=== PATIENT | female | born 1980 | race Caucasian/White ===

== ENCOUNTER 2020-01-21 13:26 | Emergency (ER) | payer OTHER, SELFPAY ==
--- NOTE | 2020-01-21 | CT_ITS ---
EXAMINATION: CT HEAD WITHOUT CONTRAST CLINICAL INFORMATION: Dizziness COMPARISON: None TECHNIQUE: Contiguous axial imaging was performed from the skull base to vertex without intravenous administration of contrast. This CT examination was performed using dose optimization techniques as appropriate, variously including the following: *Automated exposure control *Adjustment of mA and/or kV according to patient size (this includes techniques or standardized protocols for targeted exams where dose is matched to indication/reason for exam; i.e. extremities or head) *Use of iterative reconstruction technique DLP: 887 mGy-cm FINDINGS: There is no evidence of acute intracranial hemorrhage or territorial infarction. No abnormal mass effect or midline shift is seen. Lamar to white matter differentiation is well preserved. No extra-axial fluid collections are identified. The ventricles are normal in size. There is no abnormal attenuation within the brain parenchyma. The osseous structures and soft tissues are normal. The mastoid air cells and visualized portions of the paranasal sinuses are well aerated. IMPRESSION: Unremarkable exam.
[2020-01-21 13:32] VITALS: BP 131/83; PULSE 63; RESP 30; TEMP 36.7; O2SAT 96; BMI 52.4
--- NOTE | 2020-01-21 14:38 | ED_ITS ---
HPI - Dizziness General Chief Complaint: Dizziness Stated Complaint: dizziness,nausea Time Seen by Provider: 01/21/20 14:32 Related Data Previous Rx's Medication Instructions Recorded meclizine 25 mg PO DAILY PRN #30 tab 01/21/20 Allergies Allergy/AdvReac Type Severity Reaction Status Date / Time latex [LATEX] Allergy Mild HIVES Unverified 01/04/20 16:36 Latex Allergy Unknown Uncoded 08/03/19 00:00 Review of Systems Review of Systems: Yes all other systems are reviewed and are negative Constitutional: Constitutional: Reports no additional constitutional complaints Eyes: Eyes: Reports no additional eye complaints ENT: Reports system reviewed and no additional complaints, except as documented, Reports Normal hearing present and Reports dizziness Cardiovascular: Cardiovascular: Reports no additional cardiovascular complaints Respiratory: Respiratory: Reports no additional respiratory complaints Gastrointestinal: Gastrointestinal: Reports no additional gastrointestinal complaints Musculoskeletal: Musculoskeletal: Reports no additional musculoskeletal complaints Neurologic: Reports system reviewed and no additional complaints, except as documented, Reports Normal hearing present, Reports Abnormal speech present and Reports dizziness Psychiatric: Psychiatric: Reports no additional psychiatric complaints [facility] Past Medical History Medical History (Updated 01/21/20 @ 16:13 by Sandy Da Silva MD) Bipolar disorder Dizziness Vertigo Surgical History (Updated 01/21/20 @ 13:36 by Yogesh Saenz) History of hysterectomy Social History Social History Smoked in Last 30 Days: No Use of substances other than those prescribed or required for medical reasons: No Advance Directives: No Advance Directives Information Provided: No Physical Exam Vital Signs and I&O and Narrative: Vital Signs and I&O: Vital Signs Temp 98.5 F 01/21/20 15:48 Pulse 60 01/21/20 15:48 Resp 14 01/21/20 15:48 BP 126/78 01/21/20 15:48 Pulse Ox 96 01/21/20 13:32 Intake & Output 01/20/20 01/21/20 01/21/20 18:59 06:59 18:59 Weight 147.418 kg Body Mass Index 52.4 Const: General: healthy appearing and comfortable Orientation/consciousness: oriented to person, oriented to place and oriented to time HENMT: Ears: hearing grossly normal bilaterally, external ears normal and TM's normal bilaterally General nose exam: Normal external nose present Mouth: Normal oral and palatal mucosa present Teeth and gingiva: dentition normal Eyes: General: appearance normal, both eyes and all related structures Alignment and Position: alignment normal and position normal Periorbital: periorbital findings normal Eyelids: Yes eyelids normal Conjunctivae: conjunctivae normal Sclerae: sclerae normal Pupils: Equal, round and reactive pupils present EOM: No Nystagmus present Neck: Neck: Yes normal visual inspection and Yes full ROM Chest: Chest palpation & inspection: normal inspection of the chest Resp: Effort & Inspection: normal respiratory effort Cardio: Jugular venous distension: no JVD GI: Inspection: Yes normal to inspection : General: Yes Bimanual renal exam normal bilaterally Skin: General skin exam: no rashes or lesions noted Neuro: General: oriented to person, oriented to place, oriented to time, gait normal, Normal light touch and pain sensation, no focal motor deficits and CN's II-XI intact bilaterally Cranial nerves: Yes CN's II-XII intact bilaterally, Yes Facial sensation intact/muscles of mastication intact, Yes Equal, round and reactive pupils present, No Nystagmus not present, Yes Normal hearing present and No Nystagmus present Cognition (Neuro): normal cognition Speech: Abnormal speech present Gait exam (Neuro): Normal gait present Motor exam (neuro): 5/5 motor strength present throughout Sensory Exam: Normal double simultaneous stimulation for sensation Extrem: General: Yes normal to inspection Course Reevaluation(s) Reevaluation #1: 39-year-old female presented with dizziness (vertigo ), patient has a previous history of Down a similar symptoms. Patient has improved with meclizine / Ativan / Zofran. Patient has unremarkable neurological exam in particular cerebellar exam is unremarkable, patient had a CT of the of the head which is unremarkable. The patient feels better, patient ambulated in the emergency department with a stable gait will discharge with meclizine. Time: 16:11 MDM - Dizziness Differential Diagnosis Differential diagnosis: Likely benign paroxysmal positional vertigo, vertebral basilar insufficiency, cerebrovascular accident and transient cerebral ischemia Medical Records Attestation: I reviewed the patient's medical records. Lab Data Result diagrams: 01/21/20 14:58 01/21/20 14:58 Labs: Lab Results 01/21/20 01/21/20 Range/Units 14:58 14:58 WBC 8.7 (4.8-10.8) X10*3/uL RBC 5.02 (4.20-5.50) X10*6/uL Hgb 12.8 (12.0-16.0) g/dl Hct 41.1 (37-47) % MCV 81.9 (80-98) fL MCH 25.5 L (27.0-33.0) pg MCHC 31.1 (31.0-35.0) g/dl RDW 15.3 (11.0-16.0) % Plt Count 438 H (160-400) X10*3/uL MPV 9.5 (9.4-12.3) fL Absolute Nucleated RBC 0.000 (0.0-0.012) X10*3/uL Nucleated RBC % (auto) 0.0 (0.0-0.2) /100WBC Sodium 139 (135-145) mmol/L Potassium 4.4 (3.3-5.1) mmol/l Chloride 105 (96-108) mmol/L Carbon Dioxide 25 (22-29) mmol/L Anion Gap 13 (12-20) BUN 11 (9-16) mg/dL Creatinine 0.82 (0.5-1.4) mg/dL Estim Creat Clear Calc 134.7 Estimated GFR > 60 Random Glucose 88 (60-115) mg/dL Calcium 9.5 (8.4-10.2) mg/dL Imaging Data CT scan - head: Radiologist's impression: here is no evidence of acute intracranial hemorrhage or territorial infarction. No abnormal mass effect or midline shift is seen. Lamar to white matter differentiation is well preserved. No extra-axial fluid collections are identified. The ventricles are normal in size. There is no abnormal attenuation within the brain parenchyma. The osseous structures and soft tissues are normal. The mastoid air cells and visualized portions of the paranasal sinuses are well aerated. Discharge Plan Discharge Clinical Impression: Benign paroxysmal positional vertigo Patient Disposition: Home, Self-Care Instructions: Benign Paroxysmal Positional Vertigo (ED) Prescriptions: New meclizine 25 mg tablet 25 mg PO DAILY PRN (Reason: dizziness) Qty: 30 RF: 0 Referrals: Yogesh Saenz [Emergency Nurse] - 2 days
[2020-01-21] MEDS: ondansetron HCL 4 MG/2 ML VIAL IVPUSH (14:59)
[2020-01-21] MEDS: 0.9 % Sodium Chloride 1,000 ML 999 ML IVCONT (14:59)
[2020-01-21] MEDS: LORazepam 1 MG TABLET PO (14:59)
[2020-01-21] MEDS: Meclizine HCl 25 MG TABLET PO (14:59)
[2020-01-21 15:06] LABS: Hematocrit 41.1 % (37-47); Hemoglobin 12.8 g/dl (12.0-16.0); Mean Corpuscular HGB Conc 31.1 g/dl (31.0-35.0); Mean Corpuscular Hemoglobin 25.5 pg (27.0-33.0); Mean Corpuscular Volume 81.9 fL (80-98); Mean Platelet Volume 9.5 fL (9.4-12.3); Platelet Count 438 X10*3/uL (160-400); Red Blood Count 5.02 X10*6/uL (4.20-5.50); Red Cell Distribution Width 15.3 % (11.0-16.0); White Blood Count 8.7 X10*3/uL (4.8-10.8)
[2020-01-21 15:41] LABS: Anion Gap 13 (12-20); Blood Urea Nitrogen 11 mg/dL (9-16); Calcium 9.5 mg/dL (8.4-10.2); Carbon Dioxide 25 mmol/L (22-29); Chloride 105 mmol/L (96-108); Creatinine Clr Calc Pharmacy 134.7; Estimated Glomerular Filt Rate > 60; Glucose Random 88 mg/dL (60-115); Potassium 4.4 mmol/l (3.3-5.1); Sodium 139 mmol/L (135-145)
[2020-01-21 15:48] VITALS: BP 126/78; PULSE 60; RESP 14; TEMP 36.9
[2020-01-21 16:15] VITALS: BP 121/63; PULSE 63; RESP 20; TEMP 36.8; O2SAT 99
--- NOTE | 2020-01-21 16:18 | PC.NURSE ---
PT AMBULATED TO BR WITHOUT DIFFICULTY
== END 2020-01-21 16:38 | disposition home or self-care (01) ==
PROVIDERS: Emergency Provider Emergency Medicine; PCP Internal Medicine
DX: H81.10 Benign paroxysmal vertigo, unspecified ear (principal)
CPT/HCPCS: 36415; 70450; 80048; 85027; 96361; 96374; 99284; J2405

== ENCOUNTER 2020-01-23 10:36 | Emergency (ER) | payer OTHER, SELFPAY ==
--- NOTE | 2020-01-23 10:41 | ED_ITS ---
HPI - Psych General Chief Complaint: Psychiatric Symptoms Stated Complaint: AUDITORY HALLUCINATIONS,VOICES WILL KILL HER Time Seen by Provider: 01/23/20 10:41 Source: patient and EMS Mode of arrival: EMS Limitations: other (very anxious, tearful) History of Present Illness complaint: anxiety and hallucinations Onset (ago): unknown Duration: constant History of same: Yes Relieving factors: none Exacerbating factors: none Context: not taking psychiatric medications Associated psychiatric symptoms: depression, racing thoughts and auditory hallucinations Associated symptoms: denies other symptoms Treatments prior to arrival: none Related Data Previous Rx's Medication Instructions Recorded meclizine 25 mg PO DAILY PRN #30 tab 01/21/20 Allergies Allergy/AdvReac Type Severity Reaction Status Date / Time latex [LATEX] Allergy Mild HIVES Unverified 01/04/20 16:36 Latex Allergy Unknown Uncoded 08/03/19 00:00 Review of Systems Review of Systems: Constitutional : No Fever, No Chills ENT/Mouth : No Ear Pain, No Nasal Congestion, No sore throat Eyes: No Eye Pain, No Swelling, No Redness Cardiovascular : No Chest Pain, No SOB Respiratory : No Cough, No Sputum, No Dyspnea Gastrointestinal : No Nausea, No Vomiting, No Diarrhea, No Hematochezia, No Melena Genitourinary : No Dysuria, No Urinary Frequency, No Hematuria Musculoskeletal : No Myalgias Skin : No Skin Lesions, No rash Neuro : No Weakness, No Numbness, No Paresthesias, No Dizziness, No Headache Psych : positive Anxiety, positive Depression, positive hallucinations, no SI/HI Heme/Lymph: No Lymphadenopathy Endocrine : No Polyuria, No Polydipsia All other systems reviewed and are negative [facility] Past Medical History Medical History (Updated 01/23/20 @ 15:48 by Delaney Shi DO) Bipolar disorder Dizziness Vertigo Surgical History (Updated 01/23/20 @ 10:54 by Delaney Shi DO) History of appendectomy History of hysterectomy Hx of cholecystectomy Social History Social History (Updated 01/23/20 @ 10:54 by Delaney Shi DO) Alcohol intake: never Smoking Status: Never smoker Use of substances other than those prescribed or required for medical reasons: No Advance Directives: No Advance Directives Information Provided: No Physical Exam Vital Signs and I&O and Narrative: Vital Signs and I&O: Vital Signs Temp 97 F 01/23/20 15:43 Pulse 94 01/23/20 15:43 Resp 16 01/23/20 15:43 BP 125/80 01/23/20 15:43 Pulse Ox 95 01/23/20 15:43 Intake & Output 01/22/20 01/23/20 01/23/20 18:59 06:59 18:59 Weight 325 kg Body Mass Index 115.6 Appearance: Alert. Oriented X3. crying, mild distress Eyes: Pupils equal, round and reactive to light. ENT: Pharynx normal. Neck: Normal inspection. Neck supple. CVS: Normal heart rate and rhythm. Pulses normal. Respiratory: No respiratory distress. Breath sounds normal. Abdomen: Soft and nontender. Skin: Skin warm and dry. Normal skin color. Normal skin turgor. Extremities: No lower extremity edema. No lower extremity edema. Neuro: Oriented X 3. No motor deficit. No sensory deficit. Psych: + auditory hallucinations, no HI Course Course Course Narrative: signed out to Dr. Neal pending [facility] MDM - Psych MDM Narrative Medical decision making narrative: patient with hx of PTSD and bipolar no medications x 2 months very anxious states she is hearing voices will need labs, agrees to PO PEPE reyes consult Restraints Face to Face Assessment: Face to Face Assessment: Current Situation: After assessment of the patient, a review of the pertinent medical record and a discussion with nursing staff, I feel the patient requires a restrain intervention. Reaction To: [] Medical Condition: [] Behavioral State: [] Continued Need: [] Lab Data Result diagrams: 01/23/20 11:36 01/23/20 11:36 Labs: Lab Results 01/23/20 01/23/20 01/23/20 Range/Units 11:17 11:36 11:36 WBC 10.0 (4.8-10.8) X10*3/uL RBC 5.29 (4.20-5.50) X10*6/uL Hgb 13.4 (12.0-16.0) g/dl Hct 43.1 (37-47) % MCV 81.5 (80-98) fL MCH 25.3 L (27.0-33.0) pg MCHC 31.1 (31.0-35.0) g/dl RDW 15.4 (11.0-16.0) % Plt Count 479 H (160-400) X10*3/uL MPV 9.5 (9.4-12.3) fL Immature Gran % (Auto) 0.2 (0.0-0.4) % Neut % (Auto) 81.9 H (45-73) % Lymph % (Auto) 13.1 L (20-40) % [place] % (Auto) 4.4 (2-11) % Eos % (Auto) 0.1 (0-4) % Baso % (Auto) 0.3 (0-2) % Neut # (Auto) 8.2 (2.0-8.3) X10*3/uL Lymph # (Auto) 1.3 (1.2-4.9) X10*3/uL [place] # (Auto) 0.4 (0.1-1.2) X10*3/uL Eos # (Auto) 0.0 (0.0-0.4) X10*3/uL Baso # (Auto) 0.0 (0.0-0.2) X10*3/uL Abs Immat Gran (auto) 0.02 (0.00-0.03) X10*3/uL Absolute Nucleated RBC 0.000 (0.0-0.012) X10*3/uL Nucleated RBC % (auto) 0.0 (0.0-0.2) /100WBC Sodium 137 (135-145) mmol/L Potassium 4.8 (3.3-5.1) mmol/l Chloride 102 (96-108) mmol/L Carbon Dioxide 27 (22-29) mmol/L Anion Gap 13 (12-20) BUN 9 (9-16) mg/dL Creatinine 0.89 (0.5-1.4) mg/dL Estim Creat Clear Calc 217.4 Estimated GFR > 60 Random Glucose 119 H D (60-115) mg/dL Calcium 10.0 (8.4-10.2) mg/dL Total Bilirubin 0.5 (0.0-1.0) mg/dL Direct Bilirubin 0.2 (0.0-0.5) mg/dL AST 14 (5-31) U/L ALT 23 (0-31) U/L Alkaline Phosphatase 101 (39-117) U/L Total Protein 7.7 (6.5-8.0) g/dL Albumin 4.6 (3.5-5.0) g/dL Urine Opiates Screen Not Detected (Not Detect) Ur Barbiturates Screen Not Detected (Not Detect) Ur Phencyclidine Scrn Not Detected (Not Detect) Ur Amphetamines Screen Not Detected (Not Detect) U Benzodiazepines Scrn Not Detected (Not Detect) Urine Cocaine Screen Not Detected (Not Detect) U Marijuana (THC) Screen Not Detected (Not Detect) Ethyl Alcohol mg/dL 01/23/20 Range/Units 11:36 WBC (4.8-10.8) X10*3/uL RBC (4.20-5.50) X10*6/uL Hgb (12.0-16.0) g/dl Hct (37-47) % MCV (80-98) fL MCH (27.0-33.0) pg MCHC (31.0-35.0) g/dl RDW (11.0-16.0) % Plt Count (160-400) X10*3/uL MPV (9.4-12.3) fL Immature Gran % (Auto) (0.0-0.4) % Neut % (Auto) (45-73) % Lymph % (Auto) (20-40) % [place] % (Auto) (2-11) % Eos % (Auto) (0-4) % Baso % (Auto) (0-2) % Neut # (Auto) (2.0-8.3) X10*3/uL Lymph # (Auto) (1.2-4.9) X10*3/uL [place] # (Auto) (0.1-1.2) X10*3/uL Eos # (Auto) (0.0-0.4) X10*3/uL Baso # (Auto) (0.0-0.2) X10*3/uL Abs Immat Gran (auto) (0.00-0.03) X10*3/uL Absolute Nucleated RBC (0.0-0.012) X10*3/uL Nucleated RBC % (auto) (0.0-0.2) /100WBC Sodium (135-145) mmol/L Potassium (3.3-5.1) mmol/l Chloride (96-108) mmol/L Carbon Dioxide (22-29) mmol/L Anion Gap (12-20) BUN (9-16) mg/dL Creatinine (0.5-1.4) mg/dL Estim Creat Clear Calc Estimated GFR Random Glucose (60-115) mg/dL Calcium (8.4-10.2) mg/dL Total Bilirubin (0.0-1.0) mg/dL Direct Bilirubin (0.0-0.5) mg/dL AST (5-31) U/L ALT (0-31) U/L Alkaline Phosphatase (39-117) U/L Total Protein (6.5-8.0) g/dL Albumin (3.5-5.0) g/dL Urine Opiates Screen (Not Detect) Ur Barbiturates Screen (Not Detect) Ur Phencyclidine Scrn (Not Detect) Ur Amphetamines Screen (Not Detect) U Benzodiazepines Scrn (Not Detect) Urine Cocaine Screen (Not Detect) U Marijuana (THC) Screen (Not Detect) Ethyl Alcohol < 10 mg/dL Discharge Plan Discharge Clinical Impression: Chronic post-traumatic stress disorder Prescriptions: No Action meclizine 25 mg tablet 25 mg PO DAILY PRN (Reason: dizziness) Qty: 30 RF: 0
[2020-01-23 10:57] VITALS: BP 144/102; PULSE 89; RESP 20; TEMP 36.6; BMI 115.6
[2020-01-23] MEDS: LORazepam 1 MG TABLET 2 MG PO (11:11)
[2020-01-23 11:49] LABS: MANUAL DIFF FLAG NO
[2020-01-23 11:50] LABS: Basophils Percent Auto 0.3 % (0-2); Eosinophils Percent Auto 0.1 % (0-4); Hematocrit 43.1 % (37-47); Hemoglobin 13.4 g/dl (12.0-16.0); Imm Gran Abs Auto 0.02 X10*3/uL (0.00-0.03); Imm Gran Pct Auto 0.2 % (0.0-0.4); Lymphocytes Absolute Auto 1.3 X10*3/uL (1.2-4.9); Lymphocytes Percent Auto 13.1 % (20-40); Mean Corpuscular HGB Conc 31.1 g/dl (31.0-35.0); Mean Corpuscular Hemoglobin 25.3 pg (27.0-33.0); Mean Corpuscular Volume 81.5 fL (80-98); Mean Platelet Volume 9.5 fL (9.4-12.3); Monocytes Absolute Auto 0.4 X10*3/uL (0.1-1.2); Monocytes Percent Auto 4.4 % (2-11); Neutrophils Absolute Auto 8.2 X10*3/uL (2.0-8.3); Neutrophils Percent Auto 81.9 % (45-73); Platelet Count 479 X10*3/uL (160-400); Red Blood Count 5.29 X10*6/uL (4.20-5.50); Red Cell Distribution Width 15.4 % (11.0-16.0)
[2020-01-23 11:59] LABS: Amphetamine Screen Urine Not Detected (Not Detect); Barbiturates, Urine Not Detected (Not Detect); Benzodiazepines Screen Urine Not Detected (Not Detect); Cannabinoid Screen Urine Not Detected (Not Detect); Cocaine Screen Urine Not Detected (Not Detect); Opiate Screen Urine Not Detected (Not Detect); Phencyclidine Screen Urine Not Detected (Not Detect)
[2020-01-23 12:17] LABS: Ethanol < 10 mg/dL
[2020-01-23 12:21] LABS: Alanine Aminotransferase 23 U/L (0-31); Albumin Level 4.6 g/dL (3.5-5.0); Alkaline Phosphatase 101 U/L (39-117); Anion Gap 13 (12-20); Aspartate Amino Transferase 14 U/L (5-31); Bilirubin Direct 0.2 mg/dL (0.0-0.5); Bilirubin Total 0.5 mg/dL (0.0-1.0); Blood Urea Nitrogen 9 mg/dL (9-16); Carbon Dioxide 27 mmol/L (22-29); Chloride 102 mmol/L (96-108); Creatinine Clr Calc Pharmacy 217.4; Estimated Glomerular Filt Rate > 60; Glucose Random 119 mg/dL (60-115); Potassium 4.8 mmol/l (3.3-5.1); Sodium 137 mmol/L (135-145); Total Protein 7.7 g/dL (6.5-8.0)
[2020-01-23 15:43] VITALS: BP 125/80; PULSE 94; RESP 16; TEMP 36.1; O2SAT 95
--- NOTE | 2020-01-23 18:26 | PC.NURSE ---
PT GAVE PERMISSION TO GIVE UPDATES TO CAREN VASQUEZ (PT'S MOTHER) AND MARIO ROMANO (PT'S DAUGHTER) IF THEY CALL
--- NOTE | 2020-01-23 20:13 | PC.NURSE ---
LEON completed the assessment. Patient disposition is to discharge to [facility]. [facility]pite admission requires Covid negative test. Rapid covid test ordered/sample collected/sent to lab/pending result. Patient wandering in POD. Denied distress. Will continue to monitor.
[2020-01-23 21:12] LABS: SARS COV2 PCR INHOUSE NEGATIVE (Negative)
[2020-01-23 21:30] VITALS: BP 103/44; PULSE 73; RESP 16; O2SAT 98
--- NOTE | 2020-01-23 22:49 | PC.NURSE ---
Patient wants to go home not respite. [facility] made aware. Per N, pt has pcp, and o/p resource, and safe to go home. made aware. Pt will be discharged.
== END 2020-01-23 22:53 | disposition home or self-care (01) ==
PROVIDERS: Emergency Medicine; Physician Assistant; Emergency Provider Internal Medicine
DX: F43.12 Post-traumatic stress disorder, chronic (principal); F31.9 Bipolar disorder, unspecified; R44.0 Auditory hallucinations; Z79.899 Other long term (current) drug therapy
CPT/HCPCS: 36415; 80048; 80076; 80307; 80320; 85025; 87635; 99284

== ENCOUNTER 2020-03-12 03:22 | Emergency (ER) | payer OTHER, SELFPAY ==
[2020-03-12 03:39] VITALS: BP 132/78; PULSE 68; RESP 16; TEMP 37.1; O2SAT 97; BMI 50.3
[2020-03-12 04:07] VITALS: O2SAT 97
--- NOTE | 2020-03-12 04:21 | ED.URI ---
HPI - URI/Sore Throat General Chief Complaint: Upper Respiratory Symptoms Stated Complaint: Sore throat. Body aches. Sob Time Seen by Provider: 03/12/20 03:39 Source: patient Mode of arrival: ambulatory History of Present Illness HPI Narrative: Patient states of sore throat for the past 2-3 days. No fevers no chills. No neck stiffness. No drooling. Denies headache. Patient does state has been having generalized body aches. States not in contact COVID positive patient no shortness of breath no cough MD elicited complaint: sore throat (Burning worse with swallowing) Consistency: constant Severity: moderate Related Data Previous Rx's Medication Instructions Recorded meclizine 25 mg PO DAILY PRN #30 tab 01/21/20 Allergies Allergy/AdvReac Type Severity Reaction Status Date / Time latex [LATEX] Allergy Mild HIVES Verified 01/23/20 21:35 Review of Systems Review of Systems: Constitutional : No Weight loss, No Fever, No Chills, No Night Sweats, No Fatigue, No Malaise ENT/Mouth : No Hearing loss, No Ear Pain, No Nasal Congestion, No Sinus Pain, No Hoarseness, positive sore throat, No Rhinorrhea, No Swallowing Difficulty Eyes: No Eye Pain, No Swelling, No Redness, No Foreign Body, No Discharge, No Vision Changes Cardiovascular : No Chest Pain, No SOB, No Dyspnea on Exertion, No Orthopnea, No Edema, No Palpitations Respiratory : No Cough, No Sputum, No Wheezing, No Smoke Exposure, No Dyspnea Gastrointestinal : No Nausea, No Vomiting, No Diarrhea, No Constipation, No abdominal Pain, No Hematochezia, No Melena Genitourinary : no irregular bleeding, No Dysuria, No Urinary Frequency, No Hematuria, No Urinary Incontinence, No Urgency, No Flank Pain, No Urinary Flow Changes, No Hesitancy Musculoskeletal : No joint pain, No Myalgias, No Joint Swelling Skin : No Skin Lesions, No rash Neuro : No Weakness, No Numbness, No Paresthesias, No Loss of Consciousness, No Dizziness, No Headache Psych : No Anxiety/Panic, No Depression, No SI/HI/AH/VH, No Social Issues, Heme/Lymph: No Bruising, No Bleeding,No Lymphadenopathy Endocrine : No Polyuria, No Polydipsia, No Temperature Intolerance [facility] Past Medical History Medical History Bipolar disorder Dizziness Vertigo Surgical History History of appendectomy History of hysterectomy Hx of cholecystectomy Social History Social History Alcohol intake: never Smoking Status: Never smoker Advance Directives: No Advance Directives Information Provided: No Physical Exam Vital Signs: Vital Signs: Last Vital Signs Temp 98.8 F 03/12/20 03:39 Pulse 68 03/12/20 03:39 Resp 16 03/12/20 03:39 BP 132/78 03/12/20 03:39 Pulse Ox 97 03/12/20 04:07 Body Mass Index 50.3 Insert vital signs Appearance: Alert. Oriented X3. No acute distress. Eyes: Pupils equal, round and reactive to light. ENT: Pharynx with slight erythema. No abscess. No tonsillitis. No discharge Neck: Normal inspection. Neck supple. No lymph nodes noted. No crepitus CVS: Normal heart rate and rhythm. Pulses normal. Normal S1 and S2 Respiratory: No respiratory distress. Breath sounds normal. No Wheezing. No rales Abdomen: Soft and nontender. No rigidity. No distention. good BS x4 Skin: Skin warm and dry. Normal skin color. Normal skin turgor. Extremities: No lower extremity edema. Neurovascular intact to all extremities. No Lacerations. No Rash Neuro: Oriented X 3. No motor deficit. No sensory deficit. Moving all extermities. No slurred speech. MDM - URI/Sore Throat MDM Narrative Medical decision making narrative: 39-year-old female with pharyngitis rapid strep negative test. Patient with body aches, COVID test sent. Self-isolation advised nontoxic-appearing not hypoxic safe for home Discharge Plan Discharge Clinical Impression: Pharyngitis Patient Disposition: Home, Self-Care Instructions: Pharyngitis (ED) Additional Instructions: Thank you for visiting the emergency department today. If your symptoms worsen or do not resolve completely please return to the emergency department immediately or call 911. if he have any questions please call your primary care physician CDC Guidelines for home isolation: Follow these instructions until your Covid results return - Stay away from others - Limit contact with pets and animals: If you must care for a pet, wash your hands before and after interacting with them - Wear a mask if you are sick - Cover your mouth and nose with a tissue when you cough or sneeze. Dispose of tissues in a lined trash can and wash your hands immediately with soap and water for at least 20 seconds. If soap and water are not available, clean hands with alcohol-based hand anchorer that contains at least 60% alcohol. - Clean your hands often with soap and water for at least 20 seconds - Avoid touching your eyes, nose and mouth with unwashed hands - Do not share dishes, drinking glasses, cups, eating utensils, towels, or bedding with other people in your home. After using these items, wash them thoroughly with soap and water or put in the rodent exterminator. - Clean high-touch surfaces in your isolation area (?sick room? and bathroom) every day; let a caregiver clean and disinfect high-touch surfaces in other areas of the home. Clean the area or item with soap and water or another detergent if it is dirty. Then, use a household disinfectant. Seek medical attention, but call first: - Seek medical care right away if your illness is worsening (for example, if you have difficulty breathing). - Call your doctor before going in: Before going to the doctor?s office or emergency room, call ahead and tell them your symptoms. They will tell you what to do. - If possible, put on a facemask before you enter the building. If you can?t put on a facemask, try to keep a safe distance from other people (at least 6 feet away). This will help protect the people in the office or waiting room. - Follow care instructions from your healthcare provider and local health department: Your local health authorities will give instructions on checking your symptoms and reporting information. Emergency warning signs for COVID-19: - Difficulty breathing or shortness of breath - Persistent pain or pressure in the chest - New confusion or inability to arouse - Bluish lips or face Prescriptions: No Action meclizine 25 mg tablet 25 mg PO DAILY PRN (Reason: dizziness) Qty: 30 RF: 0 Referrals: Ebonie Toledo [Primary Care Provider] - 2 days
== END 2020-03-12 05:40 | disposition home or self-care (01) ==
PROVIDERS: Emergency Provider Emergency Medicine; PCP Internal Medicine
DX: J02.9 Acute pharyngitis, unspecified (principal); J06.9 Acute upper respiratory infection, unspecified; Z20.828 Contact with and (suspected) exposure to other viral communicable diseases
CPT/HCPCS: 87071; 87880; 99283; 99284; U0003

== ENCOUNTER 2020-03-24 12:08 | Emergency (ER) | payer OTHER, SELFPAY ==
[2020-03-24 12:30] VITALS: BP 126/74; PULSE 67; RESP 18; TEMP 36.8; O2SAT 96; BMI 51.2
--- NOTE | 2020-03-24 13:40 | ED.HA ---
HPI - Headache General Chief Complaint: Headache Stated Complaint: migraine Time Seen by Provider: 03/24/20 13:35 Source: patient Mode of arrival: ambulatory Limitations: no limitations History of Present Illness HPI Narrative: Patient has history of migraine headache complaining of headache for last 4 days similar to headache in the past mostly localized behind the eyes with nausea and photophobia no fever no head injury Patient is on Aimovig injection and does get headaches occasionally MD elicited complaint: headache and migraine Onset (ago): day(s) (4) Onset description: gradually Location: frontal Quality & Timing: throbbing Exacerbating factors: light and noise Relieving factors: dark room Context: occurred at rest Associated symptoms: nausea and vomiting Treatments prior to arrival: migraine medication Related Data Previous Rx's Medication Instructions Recorded meclizine 25 mg PO DAILY PRN #30 tab 01/21/20 Allergies Allergy/AdvReac Type Severity Reaction Status Date / Time latex [LATEX] Allergy Mild HIVES Verified 01/23/20 21:35 Review of Systems Review of Systems: REVIEW OF SYSTEMS: Pertinent positives and negatives are stated above in the history. GEN: no fevers, chills, fatigue HEENT: no nasal congestion, sore throat, ear pain NEURO: no dizziness, focal weakness PULM: no cough, shortness of breath CV: no chest pain, palpitations, LE edema ABD: no abdominal pain, nausea, vomiting, diarrhea : no dysuria, urgency, frequency SKIN: no rash ROS otherwise negative x 10 PMFSH Past Medical History Medical History Bipolar disorder Dizziness Vertigo Surgical History History of appendectomy History of hysterectomy Hx of cholecystectomy Social History Social History Alcohol intake: never Smoking Status: Never smoker Advance Directives: No Advance Directives Information Provided: No Physical Exam Vital Signs: Vital Signs: Last Vital Signs Temp 98.3 F 03/24/20 14:00 Pulse 66 03/24/20 14:00 Resp 18 03/24/20 14:00 BP 128/78 03/24/20 14:00 Pulse Ox 98 03/24/20 14:00 Body Mass Index 51.2 Appearance: Alert. Oriented X3. No acute distress. Photophobia+ Eyes: Pupils equal, round and reactive to light. Temporal artery non tender ENT: Pharynx normal. Neck: Normal inspection. Neck supple. CVS: Normal heart rate and rhythm. Pulses normal. Respiratory: No respiratory distress. Breath sounds normal. Abdomen: Soft and nontender. Skin: Skin warm and dry. Normal skin color. Normal skin turgor. Extremities: No lower extremity edema. Good range of movement Neuro: Oriented X 3. No motor deficit. No sensory deficit. Course Course Course Narrative: Patient feeling much better now after IV Benadryl Reglan and Decadron and Toradol will discharge her home on Fioricet Discharge Plan Discharge Prescriptions: No Action meclizine 25 mg tablet 25 mg PO DAILY PRN (Reason: dizziness) Qty: 30 RF: 0
[2020-03-24] MEDS: dexAMETHasone sod phosphate 4 MG/ML VIAL IVPUSH (13:48)
[2020-03-24] MEDS: diphenhydrAMINE HCL 50 MG/ML VIAL IVPUSH (13:50)
[2020-03-24] MEDS: Ketorolac Tromethamine 30 MG/ML VIAL IVPUSH (13:51)
[2020-03-24] MEDS: Metoclopramide HCl 10 MG/2 ML VIAL IVPUSH (13:53)
[2020-03-24] MEDS: 0.9 % Sodium Chloride 1,000 ML 999 ML IVCONT (13:55)
[2020-03-24 14:00] VITALS: BP 128/78; PULSE 66; RESP 18; TEMP 36.8; O2SAT 98
== END 2020-03-24 15:24 | disposition home or self-care (01) ==
PROVIDERS: Emergency Provider Internal Medicine; PCP Internal Medicine
DX: R51.9 Headache, unspecified (principal); R11.2 Nausea with vomiting, unspecified; Z79.899 Other long term (current) drug therapy
CPT/HCPCS: 96361; 96374; 96375; 99284; J1100; J1200; J1885; J2765

== ENCOUNTER 2020-08-26 13:20 | Emergency (ER) | payer OTHER, SELFPAY ==
[2020-08-26 13:34] VITALS: BP 117/79; PULSE 55; RESP 18; TEMP 36.4; O2SAT 98; BMI 49.4
--- NOTE | 2020-08-26 14:04 | ED.LOWEXIN ---
HPI - Extremity Injury (Lower) General Chief Complaint: Extremity Injury, Lower Stated Complaint: BOTH KNEE PAIN Time Seen by Provider: 08/26/20 13:36 Source: patient Mode of arrival: ambulatory Limitations: no limitations History of Present Illness HPI Narrative: Patient presents to ED for chronic bilateral knee pain exacerbation. Patient denies any recent trauma to the knees. Patient denies any swelling, redness, or hotness of knees. Patient states she has scheduled cortisone injection into both knees and her next appointment is in September, but she cannot wait. Patient denies any leg swelling or calf pain. Patient states no relief from Motrin. Related Data Previous Rx's Medication Instructions Recorded meclizine 25 mg PO DAILY PRN #30 tab 01/21/20 [id number] 1 cap PO Q6H PRN #20 cap 03/24/20 [Fioricet] prednisone 40 mg PO DAILY #10 tab 08/26/20 tramadol 50 mg PO TID PRN #12 tab 08/26/20 Allergies Allergy/AdvReac Type Severity Reaction Status Date / Time latex [LATEX] Allergy Mild HIVES Verified 08/26/20 13:34 Review of Systems Review of Systems: Yes all other systems are reviewed and are negative Constitutional: Constitutional: Reports as per HPI and Reports no additional constitutional complaints Eyes: Eyes: Reports as per HPI and Reports no additional eye complaints ENT: Reports system reviewed and no additional complaints, except as documented and Reports as per HPI Cardiovascular: Cardiovascular: Reports as per HPI and Reports no additional cardiovascular complaints Respiratory: Respiratory: Reports as per HPI and Reports no additional respiratory complaints Gastrointestinal: Gastrointestinal: Reports as per HPI and Reports no additional gastrointestinal complaints Genitourinary: Genitourinary: Reports no additional female genitourinary complaints and Reports as per HPI Musculoskeletal: Musculoskeletal: Reports no additional musculoskeletal complaints and Reports arthralgias (bilateral knee) Neurologic: Reports system reviewed and no additional complaints, except as documented and Reports as per HPI Psychiatric: Psychiatric: Reports no additional psychiatric complaints and Reports as per HPI PMF Past Medical History Medical History Bipolar disorder Dizziness Vertigo Surgical History History of appendectomy History of hysterectomy Hx of cholecystectomy Social History Social History Alcohol intake: never Smoking Status: Never smoker Advance Directives: No Advance Directives Information Provided: Yes Patient : No Physical Exam Vital Signs: Vital Signs: Last Vital Signs Temp 97.6 F 08/26/20 13:34 Pulse 55 08/26/20 13:34 Resp 18 08/26/20 13:34 BP 117/79 08/26/20 13:34 Pulse Ox 98 08/26/20 13:34 Body Mass Index 49.4 Const: General: cooperative, healthy appearing, comfortable, no acute distress, well developed, alert, awake and Physically active Orientation/consciousness: patient oriented x3 HENMT: Head: Yes normal to inspection, Yes No palpable skull fracture present, Yes normocephalic and Yes atraumatic Eyes: General: appearance normal, both eyes and all related structures Neck: Neck: Yes normal visual inspection, Yes full ROM, Yes no lymphadenopathy, Yes no meningeal signs, Yes trachea midline, Yes supple and No tender Chest: Chest palpation & inspection: normal inspection of the chest and normal palpation of entire chest wall Resp: Effort & Inspection: normal respiratory effort and able to speak in complete sentences Auscultation: clear to auscultation bilaterally Cardio: Jugular venous distension: no JVD Heart sounds: S1 normal heart sound present and S2 normal heart sound present GI: Inspection: Yes normal to inspection and No abdominal wall ecchymosis Palpation (GI): Soft to palpation, not firm, nontender, no guarding and not rigid : General: No CVA tenderness and Yes no CVA tenderness Back/Spine/Pelvis: Back: no CVA tenderness, No CVA tenderness and No back tenderness Skin: General skin exam: no rashes or lesions noted and elasticity normal Neuro: General: patient oriented x3, gait normal, no meningeal signs and CN's II-XI intact bilaterally Cranial nerves: Yes CN's II-XII intact bilaterally Extrem: Other: Bilateral extremity: Bilateral knees negative for any erythema, swelling, or warmth. Tenderness on palpation on both knees. Lower extremity legs negative for any swelling, calf pain, redness. Patient able to flex and extend knees fully. Psych: Appearance: grossly normal, well kempt and not disheveled Course Course Course Narrative: No need for repeat imaging. Patient denies any recent trauma. Patient states she has known history of arthritis. Not suspecting gout or septic joint. Reevaluation(s) Reevaluation #1: Since Motrin not working patient will be discharged with tramadol and prednisone. MDM - Extremity Injury (Lower) MDM Narrative Medical decision making narrative: Knee arthritis Discharge Plan Discharge Clinical Impression: Arthritis of knee Patient Disposition: Home, Self-Care Instructions: Osteoarthritis (ED), Arthritis (ED) Additional Instructions: Return to the ED immediately for any swelling, redness, warmth, inability to ambulate, inability to flex or extend knee, fever, chills, chest pain, shortness of breath, leg swelling, calf pain, redness, or any other concerning symptoms. Prescriptions: New prednisone 20 mg tablet 40 mg PO DAILY Qty: 10 RF: 0 tramadol 50 mg tablet 50 mg PO TID PRN (Reason: pain) Qty: 12 RF: 0 No Action meclizine 25 mg tablet 25 mg PO DAILY PRN (Reason: dizziness) Qty: 30 RF: 0 [id number] [Fioricet] 50-300-40 mg capsule 1 cap PO Q6H PRN (Reason: pain) Qty: 20 RF: 0 Referrals: Ebonie Toledo [Primary Care Provider] - 2 days ( Bilateral Knee arthritis.) Interventions: ED Discharge Assessment Last Done: 08/26/20 14:17 Discharge Date/Time: 08/26/20 14:19 Print Language: Tuvaluan
== END 2020-08-26 14:19 | disposition home or self-care (01) ==
PROVIDERS: Emergency Provider Emergency Medicine; PCP Internal Medicine
DX: M17.0 Bilateral primary osteoarthritis of knee (principal); M25.562 Pain in left knee; M25.561 Pain in right knee
CPT/HCPCS: 99283

== ENCOUNTER 2020-09-05 11:41 | Emergency (ER) | payer OTHER, SELFPAY ==
[2020-09-05 13:01] VITALS: BP 137/90; PULSE 71; RESP 18; TEMP 36.8; O2SAT 98; BMI 48.4
--- NOTE | 2020-09-05 13:43 | ED.GENADULT ---
HPI - General Adult General Chief complaint: General Medical Stated complaint: COVID REACTION Time Seen by Provider: 09/05/20 13:29 Source: patient Mode of arrival: ambulatory Limitations: no limitations History of Present Illness HPI narrative: 39-year-old female here with complaints of body aches, headache, scratchy throat, arm pain at injection site since receiving COVID vaccine yesterday. Patient received her 2nd visor vaccine yesterday and shortly after started to have the above symptoms. No cough, fever, shortness of breath, chest pain, abdominal pain, vomiting or diarrhea Related Data Previous Rx's Medication Instructions Recorded meclizine 25 mg PO DAILY PRN #30 tab 01/21/20 [id number]-[id number]-[id number] 1 cap PO Q6H PRN #20 cap 03/24/20 [Fioricet] prednisone 40 mg PO DAILY #10 tab 08/26/20 tramadol 50 mg PO TID PRN #12 tab 08/26/20 Allergies Allergy/AdvReac Type Severity Reaction Status Date / Time latex [LATEX] Allergy Mild HIVES Verified 08/26/20 13:34 Review of Systems Review of Systems: Yes all other systems are reviewed and are negative Constitutional: Constitutional: Reports no additional constitutional complaints, Reports body ache(s), Denies chills, Denies fever(s), Reports headache(s) and Denies weakness Eyes: Eyes: Reports no additional eye complaints and Denies change in vision ENT: Reports system reviewed and no additional complaints, except as documented, Denies dizziness, Reports headache(s), Denies nasal congestion, Denies nasal discharge, Denies neck pain and Reports sore throat Cardiovascular: Cardiovascular: Reports no additional cardiovascular complaints, Denies chest pain, Denies leg edema and Denies dyspnea Respiratory: Respiratory: Reports no additional respiratory complaints, Denies cough and Denies dyspnea Gastrointestinal: Gastrointestinal: Reports no additional gastrointestinal complaints, Denies abdominal pain, Denies diarrhea, Denies nausea and Denies vomiting Genitourinary: Genitourinary: Reports no additional female genitourinary complaints and Denies urinary incontinence Musculoskeletal: Musculoskeletal: Reports no additional musculoskeletal complaints, Denies back pain, Denies arthralgias, Denies joint swelling, Denies neck pain, Denies numbness and Denies tingling Integumentary/Breasts: Skin/Breast: Reports system reviewed and no additional complaints, except as docu and Denies rash Neurologic: Reports system reviewed and no additional complaints, except as documented, Denies Abnormal speech present, Denies dizziness, Reports headache(s), Denies numbness, Denies tingling and Denies weakness PMFSH Past Medical History Attestation statement: The following information was validated with the patient. Source: old records reviewed and nursing notes reviewed Medical History Bipolar disorder Dizziness Vertigo Surgical History History of appendectomy History of hysterectomy Hx of cholecystectomy Social History Social History Alcohol intake: never Smoking Status: Never smoker Use of substances other than those prescribed or required for medical reasons: No Advance Directives: No Advance Directives Information Provided: Yes Physical Exam Vital Signs: Vital Signs: Last Vital Signs Temp 98.2 F 09/05/20 13:01 Pulse 71 09/05/20 13:01 Resp 18 09/05/20 13:01 BP 137/90 H 09/05/20 13:01 Pulse Ox 98 09/05/20 13:01 Body Mass Index 48.4 Const: General: cooperative, healthy appearing, comfortable and no acute distress Orientation/consciousness: patient oriented x3 Limitations: no limitations HENMT: Head: Yes normal to inspection Ears: hearing grossly normal bilaterally General nose exam: Normal external nose present Face and sinus: Yes normal facial exam Mouth: Normal oral and palatal mucosa present Throat: Yes posterior oropharynx normal Eyes: General: appearance normal, both eyes and all related structures Pupils: Equal, round and reactive pupils present Neck: Neck: Yes normal visual inspection, Yes full ROM and Yes no lymphadenopathy Chest: Chest palpation & inspection: normal inspection of the chest Resp: Effort & Inspection: normal respiratory effort Auscultation: clear to auscultation bilaterally Cardio: Rate: regular rate Rhythm: regular rhythm Peripheral pulses: Peripheral pulses 2+ throughout GI: Inspection: Yes normal to inspection Palpation (GI): Soft to palpation and nontender Auscultation: normal bowel sounds Back/Spine/Pelvis: Thoracic/Lumbar Spine: thoracic and lumbar spine normal to inspection Skin: General skin exam: no rashes or lesions noted Neuro: General: patient oriented x3, no focal motor deficits and normal sensation to monofilament Cranial nerves: Yes Equal, round and reactive pupils present Cognition (Neuro): normal cognition Speech: No Abnormal speech present Gait exam (Neuro): Normal gait present Motor exam (neuro): 5/5 motor strength present throughout Extrem: General: Yes normal to inspection, Yes no pedal edema and Yes no calf tenderness Course Course Course Narrative: 39-year-old female here with headache, body aches, scratchy throat, pain at injection site after receiving the 2nd COVID vaccine yesterday. Hemodynamically stable.. Exam is benign. Will send COVID screen. The likely side effect from vaccine 1430-COVID screen negative. Again likely side effects from vaccination. Reviewed findings with the patient. Reviewed worrisome signs and symptoms when to return to the emergency department. Comfortable discharge home. Medical Decision Making Medical Records Medical records reviewed: Yes I reviewed the patient's medical records. Lab Data Lab results reviewed: Yes I reviewed the patient's lab results. Labs: Lab Results 09/05/20 Range/Units 13:50 COVID-19 (NIKHIL) Negative (Negative) COVID-19 Clin Com See Note Discharge Plan Discharge Clinical Impression: Side effects of vaccination Qualifiers: Encounter type: initial encounter Qualified Code(s): T50.Z95A - Adverse effect of other vaccines and biological substances, initial encounter Patient Disposition: Home, Self-Care Instructions: The Importance of Immunizations (Vaccines) for Adults (ED) Additional Instructions: These symptoms are likely side effects from the COVID vaccine Your COVID test is negative. Prescriptions: No Action meclizine 25 mg tablet 25 mg PO DAILY PRN (Reason: dizziness) Qty: 30 RF: 0 prednisone 20 mg tablet 40 mg PO DAILY Qty: 10 RF: 0 tramadol 50 mg tablet 50 mg PO TID PRN (Reason: pain) Qty: 12 RF: 0 oxwlhjzzqf-sitzjluozbhwi-ynpe [Fioricet] 50-300-40 mg capsule 1 cap PO Q6H PRN (Reason: pain) Qty: 20 RF: 0 Referrals: Beth Spivey MD [Primary Care Provider] - 2 days Interventions: ED Discharge Assessment Last Done: 09/05/20 14:30 Discharge Date/Time: 09/05/20 14:30
[2020-09-05 14:21] LABS: COVID-19 Test Negative (Negative)
== END 2020-09-05 14:30 | disposition home or self-care (01) ==
PROVIDERS: Nurse Practitioner Family; Emergency Provider Emergency Medicine Emergency Medical Services; PCP Family Medicine
DX: M79.10 Myalgia, unspecified site (principal); R51.9 Headache, unspecified; M79.629 Pain in unspecified upper arm; T50.B95A Adverse effect of other viral vaccines, initial encounter; Y92.039 Unspecified place in apartment as the place of occurrence of the external cause; Z20.822 Contact with and (suspected) exposure to COVID-19
CPT/HCPCS: 36415; 87635; 99283; 99284

== ENCOUNTER 2020-10-24 07:59 | Emergency (ER) | payer OTHER, SELFPAY ==
[2020-10-24 08:03] VITALS: BP 120/78; BP 128/80; PULSE 68; PULSE 70; RESP 16; TEMP 36.6; O2SAT 97; O2SAT 98; BMI 48.2
[2020-10-24 08:27] LABS: MANUAL DIFF FLAG NO
[2020-10-24 08:30] LABS: Basophils Percent Auto 0.5 % (0-2); Eosinophils Absolute Auto 0.1 X10*3/uL (0.0-0.4); Eosinophils Percent Auto 1.5 % (0-4); Hematocrit 39.2 % (37-47); Hemoglobin 12.4 g/dl (12.0-16.0); Imm Gran Abs Auto 0.02 X10*3/uL (0.00-0.03); Imm Gran Pct Auto 0.2 % (0.0-0.4); Lymphocytes Percent Auto 35.2 % (20-40); Mean Corpuscular HGB Conc 31.6 g/dl (31.0-35.0); Mean Corpuscular Volume 85.2 fL (80-98); Mean Platelet Volume 9.5 fL (9.4-12.3); Monocytes Absolute Auto 0.8 X10*3/uL (0.1-1.2); Neutrophils Absolute Auto 4.6 X10*3/uL (2.0-8.3); Neutrophils Percent Auto 53.6 % (45-73); Platelet Count 439 X10*3/uL (160-400); Red Cell Distribution Width 15.7 % (11.0-16.0); White Blood Count 8.6 X10*3/uL (4.8-10.8)
[2020-10-24] MEDS: diphenhydrAMINE HCL 50 MG/ML VIAL IVPUSH (08:33)
[2020-10-24] MEDS: Ketorolac Tromethamine 15 MG/ML VIAL 30 MG IV (08:33)
[2020-10-24] MEDS: dexAMETHasone sod phosphate 10 MG/ML VIAL IVPUSH (08:33)
[2020-10-24] MEDS: Metoclopramide HCl 10 MG/2 ML VIAL IVPUSH (08:33)
[2020-10-24] MEDS: 0.9 % Sodium Chloride 1,000 ML 999 ML IVCONT (08:33)
[2020-10-24 08:54] LABS: Alanine Aminotransferase 13 U/L (0-31); Albumin Level 3.8 g/dL (3.5-5.0); Alkaline Phosphatase 86 U/L (39-117); Anion Gap 9 (12-20); Aspartate Amino Transferase 11 U/L (5-31); Bilirubin Total 0.5 mg/dL (0.0-1.0); Blood Urea Nitrogen 10 mg/dL (9-16); Calcium 9.3 mg/dL (8.4-10.2); Carbon Dioxide 29 mmol/L (22-29); Chloride 105 mmol/L (96-108); Creatinine Clr Calc Pharmacy 136.3; Estimated Glomerular Filt Rate > 60; Glucose Random 73 mg/dL (60-115); Potassium 4.3 mmol/L (3.3-5.1); Sodium 139 mmol/L (135-145); Total Protein 6.6 g/dL (6.5-8.0)
[2020-10-24 08:59] LABS: HCG Quantitative < 2 mIU/mL
--- NOTE | 2020-10-24 09:04 | ED_ITS ---
HPI - Headache General Chief Complaint: Headache Stated Complaint: Migraine Time Seen by Provider: 10/24/20 08:09 Source: patient Mode of arrival: ambulatory Limitations: no limitations History of Present Illness HPI Narrative: 39-year-old female with a past medical history of migraine headaches presenting to the ED with complaints of acute exacerbation of her migraine headache for the past 2 days worse today with associated nausea/vomiting. She reports the headache is localized in the frontal aspect of her head/behind her eyes. She has photophobia and noise sensitivity. She reports this is similar to her prior migraine headaches. She reports she is currently on Aimovig and does get occasional headaches with despite being on this injection. She reports she has been taking Excedrin as well and no sym ptomatic relief. MD elicited complaint: headache and migraine Pertinent past history: migraines Onset (ago): day(s) ( Two days) Onset description: gradually Location: frontal and retro-orbital Severity: similar to previous episodes Quality & Timing: throbbing Exacerbating factors: light and noise Relieving factors: rest, dark room and sleep Associated symptoms: nausea and vomiting Treatments prior to arrival: other ( see above) Related Data Previous Rx's Medication Instructions Recorded meclizine 25 mg PO DAILY PRN #30 tab 01/21/20 yhitdycsub-nmomkmxksjqrd-yrjc 1 cap PO Q6H PRN #20 cap 03/24/20 [Fioricet] prednisone 40 mg PO DAILY #10 tab 08/26/20 tramadol 50 mg PO TID PRN #12 tab 08/26/20 whnapxuhik-ielyxohyyl-atr-cod 2 cap PO Q4H PRN #14 cap 10/24/20 [Fioricet with Codeine] Allergies Allergy/AdvReac Type Severity Reaction Status Date / Time latex [LATEX] Allergy Mild HIVES Verified 08/26/20 13:34 Review of Systems Review of Systems: Constitutional : No changes in activity, No lethargy, No recent prior head injury, No agitation, No increased fussiness ENT/Mouth : No Ear Pain, No Nasal discharge/drainage Eyes: No Eye Pain, No Swelling, No Redness, No Foreign Body, No Vision Changes Cardiovascular : No Chest Pain, No SOB Respiratory : No Cough Gastrointestinal : positive nausea/vomiting, No abdominal Pain Genitourinary : No Dysuria, No Urinary Frequency, No Urinary Incontinence, No Urgency, No Flank Pain Musculoskeletal : No joint pain, No neck stiffness, No back pain/injury Skin : No lacerations Neuro : positive headache, No unsteady gait, No Paresthesias, No Loss of Consciousness, No altered mental status, No dizziness Denies past medical history of HIV, recent trauma, coagulopathy, recent spinal/ epidural procedure, new medication, URI symptoms, close contacts with similar symptoms, tick bite, or known CO2 exposure. Yes all other systems are reviewed and are negative PMFSH Past Medical History Attestation statement: The following information was validated with the patient. Medical History Bipolar disorder Dizziness Fibromyalgia Vertigo Surgical History History of appendectomy History of hysterectomy Hx of cholecystectomy Social History Social History Alcohol intake: never Patient Tobacco Use Status: Former Tobacco user Use of substances other than those prescribed or required for medical reasons: No Advance Directives: Yes Advance Directives Information Provided: Yes Advance Directives on File: No Physical Exam Vital Signs: Vital Signs: Last Vital Signs Temp 97.8 F 10/24/20 08:03 Pulse 50 10/24/20 10:04 Resp 18 10/24/20 10:04 BP 132/86 10/24/20 10:04 Pulse Ox 98 10/24/20 10:04 Body Mass Index 48.2 Vital signs have been reviewed as normal and appeared to be correct. Blood pressure normal. Heart rate normal. Respiration rate normal. Temperature normal. Oxygen saturation normal. Appearance: Alert. Oriented X3. No acute distress. patient with towel over her eyes / head in a dark room. Head: Normal external exam. Normocephalic. Atraumatic. Able to rotate head bilaterally. Eyes: PERRLA. EOMI. No nystagmus noted. Conjunctiva and sclera normal. Eyelids normal. Corneal reflex normal. ENT: EAC normal. TM's Normal. Hearing normal. Pharynx normal. Uvula midline. tongue midline. Moist mucous membranes. No trismus noted. No drooling noted. No muffled voice noted. Neck: Normal inspection. Neck supple. FROM. No adenopathy. Thyroid Normal. No meningeal signs. No neck mass noted. CVS: Normal heart rate and rhythm. Heart sound normal. No murmurs noted. Pulses normal throughout. Respiratory: No respiratory distress. Painless inspiration. Breath sounds normal. No wheezes/rales/rhonchi noted. Chest nontender. No accessory muscle usage noted or decreased air movement noted. Back: Full range of motion noted. Skin: Skin warm and dry. Normal skin color. Normal skin turgor. No rashes/lesions/lacerations noted. Extremities: Extremities exhibit normal range of motion. Extremities nontender. Able to shrug shoulders bilaterally and keep up against resistance. Neuro: Oriented X 3. No motor deficit. No sensory deficit. Reflexes normal. Moving all extremities. No focal motor deficits. Cranial nerves II-XI intact bilaterally. Facial strength normal. Normal cognition. Speech normal. Gait normal. Strength 5/5 throughout. No pronator drift. No tremor noted. No fasc iculations noted. Muscle tone normal throughout. Course Course Course Narrative: - Patient afebrile, resting comfortably in no distress. Non- toxic appearing. Patient denies any recent trauma/injury to head. Neurological exam shows no deficits. BP WNL. Denies any changes in vision. Patient ambulates without difficulty. Given the history, and physical - most likely diagnosis: Migraine [place]. Due to patient reporting that this is similar to her regular migraine headaches no imaging indicated. Will treat pain, and nausea. Will d/c with migraine medicaiton and advised to follow - up with PCP. Patient demonstrated good understanding of signs and symptoms to return to ED for further testing should sx worsen. gradual onset [place] with photo/phonophobia, nausea. Pt states classic of previous migraine HAs. SAH: unlikely given gradual onset and similar to previous episodes Intracranial bleed: unlikely given neg trauma, neg anticoagulation Meningitis: unlikely given pt afebrile, neg stiff neck, no immune compromise. Exam without signs of meningismus Temporal arteritis: Unlikely given Neg jaw claudication, no temporal tenderness or nodularity on exam. Cerebral venous thrombosis: unlikely given no h/o hypercoaguable state, no chronic head/neck infection. Reevaluation(s) Reevaluation #1: - with re-evaluation patient is awake alert and oriented x3 she is mildly throughout exam at this point. Reporting that her headache is completely gone. Will DC home with Fioricet with codeine instructions to follow-up with her PCP/neurologist and to return if any new or worsening symptoms. Patient understands agrees with this plan. Time: 10:23 [facility] - Headache Medical Records Attestation: I reviewed the patient's medical records. Lab Data Attestation: I reviewed the patient's lab results. Result diagrams: 10/24/20 08:23 10/24/20 08:23 Labs: Lab Results 10/24/20 10/24/20 10/24/20 Range/Units 08:23 08:23 09:14 WBC 8.6 (4.8-10.8) X10*3/uL RBC 4.60 (4.20-5.50) X10*6/uL Hgb 12.4 (12.0-16.0) g/dl Hct 39.2 (37-47) % MCV 85.2 (80-98) fL MCH 27.0 (27.0-33.0) pg MCHC 31.6 (31.0-35.0) g/dl RDW 15.7 (11.0-16.0) % Plt Count 439 H (160-400) X10*3/uL MPV 9.5 (9.4-12.3) fL Immature Gran % (Auto) 0.2 (0.0-0.4) % Neut % (Auto) 53.6 (45-73) % Lymph % (Auto) 35.2 (20-40) % [place] % (Auto) 9.0 (2-11) % Eos % (Auto) 1.5 (0-4) % Baso % (Auto) 0.5 (0-2) % Lymph # (Auto) 3.0 (1.2-4.9) X10*3/uL [place] # (Auto) 0.8 (0.1-1.2) X10*3/uL Eos # (Auto) 0.1 (0.0-0.4) X10*3/uL Baso # (Auto) 0.0 (0.0-0.2) X10*3/uL Abs Immat Gran (auto) 0.02 (0.00-0.03) X10*3/uL Absolute Neuts (auto) 4.6 (2.0-8.3) X10*3/uL Absolute Nucleated RBC 0.000 (0.0-0.012) X10*3/uL Nucleated RBC % (auto) 0.0 (0.0-0.2) /100WBC Sodium 139 (135-145) mmol/L Potassium 4.3 (3.3-5.1) mmol/L Chloride 105 (96-108) mmol/L Carbon Dioxide 29 (22-29) mmol/L Anion Gap 9 L (12-20) BUN 10 (9-16) mg/dL Creatinine 0.77 (0.5-1.4) mg/dL Estim Creat Clear Calc 136.3 Estimated GFR > 60 Random Glucose 73 D (60-115) mg/dL Calcium 9.3 D (8.4-10.2) mg/dL Magnesium 2.0 (1.6-2.6) mg/dL Total Bilirubin 0.5 (0.0-1.0) mg/dL AST 11 (5-31) U/L ALT 13 (0-31) U/L Alkaline Phosphatase 86 (39-117) U/L Total Protein 6.6 (6.5-8.0) g/dL Albumin 3.8 (3.5-5.0) g/dL Beta HCG, Quant < 2 mIU/mL Urine Color YELLOW Urine Appearance CLEAR Urine pH 6.5 (5.0-8.0) Ur Specific [place] <= 1.005 (1.005-1.025) Urine Protein NEG (NEG-TRACE) MG/DL Urine Glucose (UA) NEG (NEG) MG/DL Urine Ketones NEG (NEG) MG/DL Urine Blood NEG (NEG) Urine Nitrite NEG (NEG) Ur Leukocyte Esterase NEG (NEG) Discharge Plan Discharge Clinical Impression: Migraine Patient Disposition: Home, Self-Care Instructions: Migraine Headache (ED) Prescriptions: New pajpjtpyqo-rpdvgjnott-wxs-cod [Fioricet with Codeine] 49-012-97-30 mg capsule 2 cap PO Q4H PRN (Reason: pain) Qty: 14 RF: 0 No Action meclizine 25 mg tablet 25 mg PO DAILY PRN (Reason: dizziness) Qty: 30 RF: 0 prednisone 20 mg tablet 40 mg PO DAILY Qty: 10 RF: 0 tramadol 50 mg tablet 50 mg PO TID PRN (Reason: pain) Qty: 12 RF: 0 sxynngxazz-sgrzwrbwwrniw-heit [Fioricet] 50-300-40 mg capsule 1 cap PO Q6H PRN (Reason: pain) Qty: 20 RF: 0 Referrals: Ebonie Toledo [Primary Care Provider] - 2 days Stand Alone Forms: Work/School Release Print Language: [place]
--- NOTE | 2020-10-24 09:13 | PC.NURSE ---
pt reports feeling a little better after the medication pain at 8/10
[2020-10-24 09:22] LABS: Glucose Urine UA NEG (NEG); Leukocyte Esterase Urine NEG (NEG); Nitrite Urine NEG (NEG); PH 6.5 (5.0-8.0); Specific Gravity - Urine <= 1.005 (1.005-1.025); Urine Blood NEG (NEG); Urine Ketones NEG (NEG); Urine Protein NEG (NEG-TRACE)
[2020-10-24 09:23] LABS: Appearance Urine CLEAR; Color Urine YELLOW
--- NOTE | 2020-10-24 10:03 | PC.NURSE ---
pt reports feeling much better, pain at 4/10
[2020-10-24 10:04] VITALS: BP 132/86; PULSE 50; RESP 18; O2SAT 98
== END 2020-10-24 10:44 | disposition home or self-care (01) ==
PROVIDERS: Physician Assistant Medical; Emergency Provider Emergency Medicine; PCP Internal Medicine
DX: G43.009 Migraine without aura, not intractable, without status migrainosus (principal)
CPT/HCPCS: 36415; 80053; 81003; 83735; 84702; 85025; 96361; 96374; 96375; 99284; 99285; J1100; J1200; J1885; J2765

== ENCOUNTER 2021-01-25 10:28 | Emergency (ER) | payer OTHER, SELFPAY ==
[2021-01-25 10:47] VITALS: BP 152/80; PULSE 73; RESP 18; TEMP 36.8; O2SAT 97; BMI 47.7
--- NOTE | 2021-01-25 11:05 | ED_ITS ---
HPI - General Adult General Chief complaint: Upper Respiratory Symptoms Stated complaint: Sore Throat Time Seen by Provider: 01/25/21 10:54 Source: patient Mode of arrival: ambulatory Limitations: no limitations History of Present Illness HPI narrative: 40-year-old female who presents emergency department for evaluation of viral-like illness x3 days. Patient states she has had fever, sore throat, cough, shortness of breath, body aches and fatigue. She states that her cough is nonproductive. She states that she has a constant sharp pain in the back of her throat which is worse with swallowing, the pain is 7/10 at its worst. The patient has been taking ibuprofen with only minimal relief for pain. She denied chest pain, dyspnea on exertion, nausea, vomiting, abdominal pain, diarrhea, frequency, urgency or dysuria. The patient receive the COVID-19 Pfizer vaccine with her 2nd vaccination given September 04, 2020. Related Data Previous Rx's Medication Instructions Recorded meclizine 25 mg tablet 25 mg PO DAILY PRN #30 tab 01/21/20 zzfodicida-rtykqqktvhcvy-bbhovzzf 1 cap PO Q6H PRN #20 cap 03/24/20 50 mg-300 mg-40 mg capsule (Fioricet) prednisone 20 mg tablet 40 mg PO DAILY #10 tab 08/26/20 tramadol 50 mg tablet 50 mg PO TID PRN #12 tab 08/26/20 butalbital 50 mg-acetaminophen 300 2 cap PO Q4H PRN #14 cap 10/24/20 mg-caffeine 40 mg-codeine 30 mg cap (Fioricet with Codeine) Allergies Allergy/AdvReac Type Severity Reaction Status Date / Time latex [LATEX] Allergy Mild HIVES Verified 08/26/20 13:34 Review of Systems Review of Systems: Yes all other systems are reviewed and are negative [facility] Past Medical History [facility] Narrative: Past medical history: Asthma, hypothyroidism, osteoarthritis of both knees, fibromyalgia. Past surgical history: Cholecystectomy. Gastric bypass surgery 10 years prior, hysterectomy. Social history: The patient denies tobacco, alcohol and drug use. Medical History Bipolar disorder Dizziness Fibromyalgia Vertigo Surgical History History of appendectomy History of hysterectomy Hx of cholecystectomy Social History Social History Alcohol intake: never Patient Tobacco Use Status: Former Tobacco user Advance Directives: No Advance Directives Information Provided: No Physical Exam Vital Signs: Vital Signs: Last Vital Signs Temp 98.3 F 01/25/21 10:47 Pulse 73 01/25/21 10:47 Resp 18 01/25/21 10:47 BP 152/80 H 01/25/21 10:47 Pulse Ox 97 01/25/21 10:47 Body Mass Index 47.7 Const: General: cooperative and no acute distress Orientation/consciousness: oriented to person and oriented to place Limitations: no limitations HENMT: Head: Yes normal to inspection, Yes normocephalic and Yes atraumatic Ears: external ears normal General nose exam: Normal external nose present Face and sinus: Yes normal facial exam Mouth: Normal oral and palatal mucosa present Throat: Yes posterior oropharynx normal Eyes: General: appearance normal, both eyes and all related structures Pupils: Equal, round and reactive pupils present Neck: Neck: Yes normal visual inspection, Yes no lymphadenopathy, Yes trachea midline and Yes supple Chest: Chest palpation & inspection: normal inspection of the chest and normal palpation of entire chest wall Resp: Effort & Inspection: normal respiratory effort and able to speak in complete sentences Auscultation: clear to auscultation bilaterally Cardio: Rate: regular rate Rhythm: regular rhythm Heart sounds: S1 normal heart sound present, S2 normal heart sound present and no murmurs GI: Inspection: Yes normal to inspection Palpation (GI): Soft to palpation, nontender and no guarding Auscultation: normal bowel sounds : General: Yes no CVA tenderness Back/Spine/Pelvis: Back: no CVA tenderness Skin: General skin exam: no rashes or lesions noted Neuro: General: oriented to person and oriented to place Cranial nerves: Yes CN's II-XII intact bilaterally and Yes Equal, round and reactive pupils present Cognition (Neuro): normal cognition Motor exam (neuro): 5/5 motor strength present throughout Extrem: General: Yes normal to inspection Psych: Appearance: grossly normal Speech and movement: Normal speech and movement present Affect: normal affect Attitude: cooperative Thought process: Normal thought process present Thought content: Normal thought content present Course Course Course Narrative: 40-year-old female who presents emergency department for evaluation of viral-like illness with symptoms including sore throat, nonprod uctive cough, fatigue, myalgias and arthralgias, and shortness of breath. Vital signs did reveal an elevated blood pressure 152/80 otherwise were unremarkable. Physical examination was unremarkable. I did order a COVID 19 and rapid strep throat test. Patient's pain was treated with Tylenol 975 mg orally. 1209: The patient's COVID-19 test and rapid strep test were negative. I did discuss these findings with the patient. The patient has a viral illness. She was given printed and verbal instructions and discharged home. 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 pyogenes GrpA JALIL Negative (Negative) Discharge Plan Discharge Clinical Impression: Viral infection Patient Disposition: Home, Self-Care Instructions: Viral Syndrome (ED) Additional Instructions: Your COVID-19 test was negative. Your rapid strep test was negative as well. Your symptoms are consistent with a viral infection. There are many different viruses that can make a sick. Most of these viruses get better after 1-2 weeks. Take ibuprofen 200 mg pills, 3 pills every 6 hours as needed for pain. Take Tylenol (acetaminophen) 500 mg pills, 2 pills every 4 to 6 hours as needed for pain. Follow-up with your doctor in 2 days. Please return to the emergency department if your symptoms get worse or if you develop any symptoms that are concerning to you. Please see work note. Prescriptions: No Action meclizine 25 mg tablet 25 mg PO DAILY PRN (Reason: dizziness) Qty: 30 RF: 0 prednisone 20 mg tablet 40 mg PO DAILY Qty: 10 RF: 0 tramadol 50 mg tablet 50 mg PO TID PRN (Reason: pain) Qty: 12 RF: 0 podtojcnqj-ksyfqwtxaprmj-sfzt [Fioricet] 50-300-40 mg capsule 1 cap PO Q6H PRN (Reason: pain) Qty: 20 RF: 0 verooqnjew-phhzorspxn-hqm-cod [Fioricet with Codeine] 51-735-07-30 mg capsule 2 cap PO Q4H PRN (Reason: pain) Qty: 14 RF: 0 Stand Alone Forms: Work/School Release
[2021-01-25] MEDS: Acetaminophen 325 MG TABLET 975 MG PO (11:12)
[2021-01-25 11:34] LABS: IDNOW Serial# 9DD0AD1C; Strep A Nucleic Acid Negative (Negative)
[2021-01-25 11:42] LABS: COVID-19 Test Negative (Negative)
== END 2021-01-25 12:31 | disposition home or self-care (01) ==
PROVIDERS: Emergency Provider Emergency Medicine Emergency Medical Services; PCP Internal Medicine
DX: B34.9 Viral infection, unspecified (principal); J02.8 Acute pharyngitis due to other specified organisms; R50.9 Fever, unspecified; R05.9 Cough, unspecified; R06.02 Shortness of breath; M79.10 Myalgia, unspecified site; Z20.822 Contact with and (suspected) exposure to COVID-19; Z87.891 Personal history of nicotine dependence
CPT/HCPCS: 36415; 87635; 87651; 99283

== ENCOUNTER 2021-02-12 07:42 | Emergency (ER) | payer OTHER, SELFPAY ==
--- NOTE | ~2021-02-12 | XR_ITS ---
EXAMINATION: XR WRIST, RIGHT CLINICAL INFORMATION: Wrist pain. COMPARISON: None TECHNIQUE: PA, lateral, and oblique views of the right wrist. FINDINGS: The scapholunate joint space measures 0.35 cm, within normal limits. The bones and soft tissues are normal. No fracture. Alignment is anatomic with normal joint spaces. No erosions or abnormal soft tissue calcifications. XR/XR wrist RT min 3V IMPRESSION: The scapholunate joint space appears prominent however, by measurement is still within normal limits. Otherwise unremarkable.
[2021-02-12 08:07] VITALS: BP 156/97; PULSE 57; RESP 20; TEMP 36.5; O2SAT 99; BMI 47.0
[2021-02-12] MEDS: Ketorolac Tromethamine 60 MG/2 ML VIAL IM (08:24)
--- NOTE | 2021-02-12 08:24 | ED_ITS ---
HPI - Extremity Problem General Chief complaint: Extremity Injury, Upper Stated complaint: wrist pain Time Seen by Provider: 02/12/21 08:09 Source: patient Mode of arrival: ambulatory Limitations: no limitations History of Present Illness HPI Narrative: 40-year-old female with history of fibromyalgia, osteoarthritis in her knees, and migraines who presents to the ER with nontraumatic right wrist pain that started yesterday. She reports the the lateral aspect of her wrist on the dorsal side is tender. It is worse with movement. She is able to fully move her wrist but it hurts. She denies any fall or trauma. There is no swelling. She denies any redness or warmth. No numbness or tingling in her hand. No weakness. She has never had pain like this before. She reports that as a /10 and aching and sharp. 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 She reports working last Wednesday but did not have any this pain at this time. MD Complaint: joint paint Onset (ago): day(s) (One) Pain Consistency: constant Location: right and other (Wrist) Severity scale (1-10): 7 Quality: aching and sharp Radiation: none Relieving factors: rest Exacerbating factors: range of motion and palpation Associated symptoms: denies other symptoms Related Data Previous Rx's Medication Instructions Recorded meclizine 25 mg tablet 25 mg PO DAILY PRN #30 tab 01/21/20 dgwzmokusr-vldlwvrvircmf-qnvhkkms 1 cap PO Q6H PRN #20 cap 03/24/20 50 mg-300 mg-40 mg capsule (Fioricet) prednisone 20 mg tablet 40 mg PO DAILY #10 tab 08/26/20 tramadol 50 mg tablet 50 mg PO TID PRN #12 tab 08/26/20 butalbital 50 mg-acetaminophen 300 2 cap PO Q4H PRN #14 cap 10/24/20 mg-caffeine 40 mg-codeine 30 mg cap (Fioricet with Codeine) ibuprofen 600 mg tablet 600 mg PO Q8H PRN #20 tab 02/12/21 Allergies Allergy/AdvReac Type Severity Reaction Status Date / Time latex [LATEX] Allergy Mild HIVES Verified 08/26/20 13:34 Review of Systems Review of Systems: Constitutional: No Fever, No Chills Cardiovascular: No Chest Pain, No SOB Musculoskeletal: + joint pain, No Myalgias Skin: No Skin Lesions, No rash Neuro: No Weakness, No Numbness Psych: No Anxiety/Panic, No Depression Heme/Lymph: No Bruising, No Lymphadenopathy PMFSH Past Medical History Medical History Bipolar disorder Dizziness Fibromyalgia Vertigo Surgical History History of appendectomy History of hysterectomy Hx of cholecystectomy Social History Social History Alcohol intake: never Patient Tobacco Use Status: Former Tobacco user Use of substances other than those prescribed or required for medical reasons: No Advance Directives: No Advance Directives Information Provided: No Physical Exam Vital Signs: Vital Signs: Last Vital Signs Temp 97.7 F 02/12/21 08:07 Pulse 57 02/12/21 08:07 Resp 20 02/12/21 08:07 BP 156/97 H 02/12/21 08:07 Pulse Ox 99 02/12/21 08:07 Body Mass Index 47.0 Appearance: Alert. Oriented X3. No acute distress. HEENT: normal inspection CVS: Normal heart rate and rhythm. Pulses normal. Respiratory: No respiratory distress. Skin: Skin warm and dry. Normal skin color. Normal skin turgor. No rashes. Extremities: Normal inspection of the right wrist. Tenderness along the late ral portion of the dorsal side of the right wrist with no palpable deformity. No swelling, erythema, warmth. No point tenderness. Normal active and passive range of motion with pain during. Normal premix concrete batcher strength. No sensory deficit. 1+ radial pulse. Neuro: Oriented X 3. No motor deficit. No sensory deficit. Course Course Course Narrative: 40-year-old presenting with nontraumatic right wrist pain that started yesterday. X-rays pending for further evaluation Reevaluation(s) Reevaluation #1: X-ray showing scapholunate joint space is slightly prominent but normal when measured. Exam is otherwise unremarkable. Will place in a cock-up focal wrist splint for support and have her follow-up with orthopedics for further management. Will prescribe NSAID. Will provide work note. Stable for discharge home with supportive care and outpatient follow-up with Orthopedics. Critical Care Time Critical Care Time Critical Care Time: No Discharge Plan Discharge Clinical Impression: Acute wrist pain Qualifiers: Laterality: right Qualified Code(s): M25.531 - Pain in right wrist Patient Disposition: Home, Self-Care Instructions: Arthralgia (ED), Tendinitis (ED) Additional Instructions: Your x-ray today did not show any acute abnormalities. He may have inflammation or irritation of 1 of the tendons and your wrist. Recommend supportive care with the wrist brace provided in the ER. Rest, avoid use of your right hand until feeling better. Recommend anti-inflammatory medication as prescribed every 6-8 hours as needed for pain. Use ice several times a day. Follow-up with the orthopedic doctors for further evaluation. Prescriptions: New ibuprofen 600 mg tablet 600 mg PO Q8H PRN (Reason: pain) Qty: 20 RF: 0 No Action meclizine 25 mg tablet 25 mg PO DAILY PRN (Reason: dizziness) Qty: 30 RF: 0 prednisone 20 mg tablet 40 mg PO DAILY Qty: 10 RF: 0 tramadol 50 mg tablet 50 mg PO TID PRN (Reason: pain) Qty: 12 RF: 0 zyoguvlnob-wsbvssdmtqnbi-yqfl [Fioricet] 50-300-40 mg capsule 1 cap PO Q6H PRN (Reason: pain) Qty: 20 RF: 0 vpdqwbopeg-pdlucvkogk-ilg-cod [Fioricet with Codeine] 51-070-03-30 mg capsule 2 cap PO Q4H PRN (Reason: pain) Qty: 14 RF: 0 Referrals: Jadiel Justice PA-C [Physician Upfitter] - 1 day (right wrist pain, no trauma. XR negative) Stand Alone Forms: Work/School Release
== END 2021-02-12 09:05 | disposition home or self-care (01) ==
PROVIDERS: Emergency Provider Emergency Medicine; PCP Internal Medicine
DX: M25.531 Pain in right wrist (principal)
CPT/HCPCS: 73110; 96372; 99284; J1885

== ENCOUNTER 2021-04-16 08:37 | Emergency (ER) | payer OTHER, SELFPAY ==
[2021-04-16 09:11] VITALS: BP 155/91; PULSE 60; RESP 16; TEMP 35.8; O2SAT 98; BMI 46.0
--- NOTE | 2021-04-16 12:22 | ECG_ITS ---
Test Reason : DIZZINESS Blood Pressure : / mmHG Vent. Rate : 062 BPM Atrial Rate : 062 BPM P-R Int : 156 ms QRS Dur : 084 ms QT Int : 424 ms P-R-T Axes : 007 -14 025 degrees QTc Int : 430 ms Normal sinus rhythm with sinus arrhythmia Minimal voltage criteria for LVH, may be normal variant ( R in aVL ) Borderline ECG No previous ECGs available Referred By: Janae Best Electronically Signed By:Alberto Quintanilla
--- NOTE | 2021-04-16 12:24 | ED_ITS ---
HPI - General Adult General Chief complaint: Dizziness Stated complaint: fatigue nausea abdominal pain Time Seen by Provider: 04/16/21 11:57 Source: patient Mode of arrival: ambulatory Limitations: no limitations History of Present Illness HPI narrative: Patient comes to the emergency room complaining of nausea, gen eralized malaise, fatigue and dizziness for 1 month. Patient states that she has history of vertigo but the dizziness is not the same. When patient is asked to describe dizziness, states that she can not explain, it is not the room spinning, not lightheaded, not blacking out, feels more like weakness. Patient also states that she has no abdominal pain, she is feels like something is moving inside of her. Patient denies the possibility of being Related Data Previous Rx's Medication Instructions Recorded meclizine 25 mg tablet 25 mg PO DAILY PRN #30 tab 01/21/20 nqmguzsofi-zeizedctasmvm-miadsfdj 1 cap PO Q6H PRN #20 cap 03/24/20 50 mg-300 mg-40 mg capsule (Fioricet) prednisone 20 mg tablet 40 mg PO DAILY #10 tab 08/26/20 tramadol 50 mg tablet 50 mg PO TID PRN #12 tab 08/26/20 butalbital 50 mg-acetaminophen 300 2 cap PO Q4H PRN #14 cap 10/24/20 mg-caffeine 40 mg-codeine 30 mg cap (Fioricet with Codeine) ibuprofen 600 mg tablet 600 mg PO Q8H PRN #20 tab 02/12/21 ondansetron HCl 4 mg tablet 4 mg PO Q6H PRN #10 tab 04/16/21 (Zofran) Allergies Allergy/AdvReac Type Severity Reaction Status Date / Time latex [LATEX] Allergy Mild HIVES Verified 08/26/20 13:34 Review of Systems Review of Systems: Constitutional : No Weight loss, No Fever, No Chills, No Night Sweats, complaining of chronic fatigue and generalized malaise ENT/Mouth : No Hearing loss, No Ear Pain, No Nasal Congestion, No Sinus Pain, No Hoarseness, No sore throat, No Rhinorrhea, No Swallowing Difficulty Eyes: No Eye Pain, No Swelling, No Redness, No Foreign Body, No Discharge, No Vision Changes Cardiovascular : No Chest Pain, No SOB, No Dyspnea on Exertion, No Orthopnea, No Edema, No Palpitations Respiratory : No Cough, No Sputum, No Wheezing, No Smoke Exposure, No Dyspnea Gastrointestinal : No Nausea, No Vomiting, No Diarrhea, No Constipation, No abdominal Pain, complaining of the sensation of something moving inside of her lower abdomen, painless. No Hematochezia, No Melena Genitourinary : no irregular bleeding, No Dysuria, No Urinary Frequency, No Hematuria, No Urinary Incontinence, No Urgency, No Flank Pain, No Urinary Flow Changes, No Hesitancy Musculoskeletal : No joint pain, No Myalgias, No Joint Swelling Skin : No Skin Lesions, No rash Neuro : No Weakness, No Numbness, No Paresthesias, No Loss of Consciousness, complaining of nonspecific dizziness, No Headache Psych : No Anxiety/Panic, No Depression, No SI/HI/AH/VH, No Social Issues, Heme/Lymph: No Bruising, No Bleeding,No Lymphadenopathy Endocrine : No Polyuria, No Polydipsia, No Temperature Intolerance PMFSH Past Medical History Medical History Bipolar disorder Dizziness Fibromyalgia Vertigo Surgical History History of appendectomy History of hysterectomy Hx of cholecystectomy Social History Social History Alcohol intake: never Patient Tobacco Use Status: Former Tobacco user Advance Directives: No Advance Directives Information Provided: No Patient : No Physical Exam Vital Signs: Vital Signs: Last Vital Signs Temp 96.5 F L 04/16/21 09:11 Pulse 60 04/16/21 09:11 Resp 16 04/16/21 09:11 BP 155/91 H 04/16/21 09:11 Pulse Ox 98 04/16/21 09:11 BMI result Body Mass Index 46.0 Const: Other: Appearance: Alert. Oriented X3. No acute distress. Well-christal earing Eyes: Pupils equal, round and reactive to light. ENT: Pharynx normal. Neck: Normal inspection. Neck supple. No lymph nodes noted. No crepitus CVS: Normal heart rate and rhythm. Pulses normal. Normal S1 and S2 Respiratory: No respiratory distress. Breath sounds normal. No Wheezing. No ral es Abdomen: Soft and nontender. No rigidity. No distention. good BS x4 Skin: Skin warm and dry. Normal skin color. Normal skin turgor. Extremities: No lower extremity edema. No lower extremity edema. No Lacerations. No Rash Neuro: Oriented X 3. No motor deficit. No sensory deficit. Moving all extermities. No slurred speech. Patient is pacing and ambulating in the room with normal and steady gait Course Course Course Narrative: I discussed the labs with the patient, is findings. White bl ood cell count elevation likely reactive leukocytosis. Patient instructed to follow up with the primary care physician. Patient tested negative for COVID-19 Medical Decision Making Lab Data Result diagrams: 04/16/21 12:55 04/16/21 12:55 Labs: Lab Results 04/16/21 04/16/21 04/16/21 Range/Units 12:35 12:35 12:55 WBC 10.9 H (4.8-10.8) X10*3/uL RBC 4.63 (4.20-5.50) X10*6/uL Hgb 12.7 (12.0-16.0) g/dl Hct 39.8 (37.0-47.0) % MCV 86.0 (80.0-98.0) fL MCH 27.4 (27.0-33.0) pg MCHC 31.9 (31.0-35.0) g/dl RDW 15.0 (11.0-16.0) % Plt Count 422 H (160-400) X10*3/uL MPV 9.4 (9.4-12.3) fL Immature Gran % (Auto) 0.4 (0.0-0.4) % Neut % (Auto) 67.9 (45-73) % Lymph % (Auto) 23.7 (20-40) % [place] % (Auto) 7.2 (2-11) % Eos % (Auto) 0.5 (0-4) % Baso % (Auto) 0.3 (0-2) % Lymph # (Auto) 2.6 (1.2-4.9) X10*3/uL [place] # (Auto) 0.8 (0.1-1.2) X10*3/uL Eos # (Auto) 0.1 (0.0-0.4) X10*3/uL Baso # (Auto) 0.0 (0.0-0.2) X10*3/uL Abs Immat Gran (auto) 0.04 H (0.00-0.03) X10*3/uL Absolute Neuts (auto) 7.4 (2.0-8.3) x10*3/uL Absolute Nucleated RBC 0.000 (0.0-0.012) X10*3/uL Nucleated RBC % (auto) 0.0 (0.0-0.2) /100WBC Sodium (135-145) mmol/L Potassium (3.3-5.1) mmol/L Chloride (96-108) mmol/L Carbon Dioxide (22-29) mmol/L Anion Gap (12-20) BUN (9-16) mg/dL Creatinine (0.5-1.4) mg/dL Estim Creat Clear Calc Estimated GFR Random Glucose (60-115) mg/dL Calcium (8.4-10.2) mg/dL Total Bilirubin (0.0-1.0) mg/dL Direct Bilirubin (0.0-0.5) mg/dL AST (5-31) U/L ALT (0-31) U/L Alkaline Phosphatase (39-117) U/L Total Protein (6.5-8.0) g/dL Albumin (3.5-5.0) g/dL Urine Color YELLOW Urine Appearance CLEAR Urine pH 6.5 (5.0-8.0) Ur Specific [place] <= 1.005 (1.005-1.025) Urine Protein NEG (NEG-TRACE) MG/DL Urine Glucose (UA) NEG (NEG) MG/DL Urine Ketones NEG (NEG) MG/DL Urine Blood NEG (NEG) Urine Nitrite NEG (NEG) Ur Leukocyte Esterase NEG (NEG) Urine RBC 0-2 (0) /HPF Urine WBC 0 (0-4) /HPF Ur Squamous Epith Cells 1+ /LPF Urine Bacteria NONE /LPF Urine Test NEGATIVE (NEGATIVE) COVID-19 (NIKHIL) (Negative) COVID-19 Clin Com 04/16/21 04/16/21 Range/Units 12:55 12:55 WBC (4.8-10.8) X10*3/uL RBC (4.20-5.50) X10*6/uL Hgb (12.0-16.0) g/dl Hct (37.0-47.0) % MCV (80.0-98.0) fL MCH (27.0-33.0) pg MCHC (31.0-35.0) g/dl RDW (11.0-16.0) % Plt Count (160-400) X10*3/uL MPV (9.4-12.3) fL Immature Gran % (Auto) (0.0-0.4) % Neut % (Auto) (45-73) % Lymph % (Auto) (20-40) % [place] % (Auto) (2-11) % Eos % (Auto) (0-4) % Baso % (Auto) (0-2) % Lymph # (Auto) (1.2-4.9) X10*3/uL [place] # (Auto) (0.1-1.2) X10*3/uL Eos # (Auto) (0.0-0.4) X10*3/uL Baso # (Auto) (0.0-0.2) X10*3/uL Abs Immat Gran (auto) (0.00-0.03) X10*3/uL Absolute Neuts (auto) (2.0-8.3) x10*3/uL Absolute Nucleated RBC (0.0-0.012) X10*3/uL Nucleated RBC % (auto) (0.0-0.2) /100WBC Sodium 138 (135-145) mmol/L Potassium 4.3 (3.3-5.1) mmol/L Chloride 104 (96-108) mmol/L Carbon Dioxide 29 (22-29) mmol/L Anion Gap 9 L (12-20) BUN 12 (9-16) mg/dL Creatinine 0.73 (0.5-1.4) mg/dL Estim Creat Clear Calc 138.3 Estimated GFR > 60 Random Glucose 78 (60-115) mg/dL Calcium 9.3 (8.4-10.2) mg/dL Total Bilirubin 0.5 (0.0-1.0) mg/dL Direct Bilirubin 0.2 (0.0-0.5) mg/dL AST 13 (5-31) U/L ALT 17 (0-31) U/L Alkaline Phosphatase 87 (39-117) U/L Total Protein 6.8 (6.5-8.0) g/dL Albumin 3.9 (3.5-5.0) g/dL Urine Color Urine Appearance Urine pH (5.0-8.0) Ur Specific [place] (1.005-1.025) Urine Protein (NEG-TRACE) MG/DL Urine Glucose (UA) (NEG) MG/DL Urine Ketones (NEG) MG/DL Urine Blood (NEG) Urine Nitrite (NEG) Ur Leukocyte Esterase (NEG) Urine RBC (0) /HPF Urine WBC (0-4) /HPF Ur Squamous Epith Cells /LPF Urine Bacteria /LPF Urine Test (NEGATIVE) COVID-19 (NIKHIL) Negative (Negative) COVID-19 Clin Com See Note Discharge Plan Discharge Clinical Impression: Fatigue Patient Disposition: Home, Self-Care Instructions: Fatigue (ED) Additional Instructions: Please follow-up with your primary care physician tomorrow. If you have any worsening or new symptoms, please return to the emergency room or call 911 Prescriptions: New ondansetron HCl [Zofran] 4 mg tablet 4 mg PO Q6H PRN (Reason: nausea and vomiting) Qty: 10 RF: 0 No Action meclizine 25 mg tablet 25 mg PO DAILY PRN (Reason: dizziness) Qty: 30 RF: 0 prednisone 20 mg tablet 40 mg PO DAILY Qty: 10 RF: 0 tramadol 50 mg tablet 50 mg PO TID PRN (Reason: pain) Qty: 12 RF: 0 ewnkhlgyqm-aqcyvloukyajy-kaed [Fioricet] 50-300-40 mg capsule 1 cap PO Q6H PRN (Reason: pain) Qty: 20 RF: 0 kzixvbbtpq-ifmyelgltc-zem-cod [Fioricet with Codeine] 31-370-71-30 mg capsule 2 cap PO Q4H PRN (Reason: pain) Qty: 14 RF: 0 ibuprofen 600 mg tablet 600 mg PO Q8H PRN (Reason: pain) Qty: 20 RF: 0
[2021-04-16 12:44] LABS: Appearance Urine CLEAR; Color Urine YELLOW; Glucose Urine UA NEG (NEG); Leukocyte Esterase Urine NEG (NEG); Nitrite Urine NEG (NEG); PH 6.5 (5.0-8.0); Specific Gravity - Urine <= 1.005 (1.005-1.025); Urine Blood NEG (NEG); Urine Ketones NEG (NEG); Urine Protein NEG (NEG-TRACE)
[2021-04-16 12:45] LABS: UPreg QC Valid YES; Urine Pregnancy NEGATIVE (NEGATIVE)
[2021-04-16 12:52] LABS: Squamous Epithelial Cell Urine 1+ /LPF
[2021-04-16 12:54] LABS: RBC Urine 0-2 /HPF (0); WBC Urine 0 /HPF (0-4)
[2021-04-16] MEDS: Meclizine HCl 25 MG TABLET 50 MG PO (12:59)
[2021-04-16 13:00] LABS: MANUAL DIFF FLAG NO
[2021-04-16 13:01] LABS: Basophils Percent Auto 0.3 % (0-2); Eosinophils Absolute Auto 0.1 X10*3/uL (0.0-0.4); Eosinophils Percent Auto 0.5 % (0-4); Hematocrit 39.8 % (37.0-47.0); Hemoglobin 12.7 g/dl (12.0-16.0); Imm Gran Abs Auto 0.04 X10*3/uL (0.00-0.03); Imm Gran Pct Auto 0.4 % (0.0-0.4); Lymphocytes Absolute Auto 2.6 X10*3/uL (1.2-4.9); Lymphocytes Percent Auto 23.7 % (20-40); Mean Corpuscular HGB Conc 31.9 g/dl (31.0-35.0); Mean Corpuscular Hemoglobin 27.4 pg (27.0-33.0); Mean Platelet Volume 9.4 fL (9.4-12.3); Monocytes Absolute Auto 0.8 X10*3/uL (0.1-1.2); Monocytes Percent Auto 7.2 % (2-11); Neutrophils Absolute Auto 7.4 x10*3/uL (2.0-8.3); Neutrophils Percent Auto 67.9 % (45-73); Platelet Count 422 X10*3/uL (160-400); Red Blood Count 4.63 X10*6/uL (4.20-5.50); White Blood Count 10.9 X10*3/uL (4.8-10.8)
[2021-04-16 13:17] LABS: COVID-19 Test Negative (Negative)
[2021-04-16 13:19] LABS: Alanine Aminotransferase 17 U/L (0-31); Albumin Level 3.9 g/dL (3.5-5.0); Alkaline Phosphatase 87 U/L (39-117); Anion Gap 9 (12-20); Aspartate Amino Transferase 13 U/L (5-31); Bilirubin Direct 0.2 mg/dL (0.0-0.5); Bilirubin Total 0.5 mg/dL (0.0-1.0); Blood Urea Nitrogen 12 mg/dL (9-16); Calcium 9.3 mg/dL (8.4-10.2); Carbon Dioxide 29 mmol/L (22-29); Chloride 104 mmol/L (96-108); Creatinine Clr Calc Pharmacy 138.3; Estimated Glomerular Filt Rate > 60; Glucose Random 78 mg/dL (60-115); Potassium 4.3 mmol/L (3.3-5.1); Sodium 138 mmol/L (135-145); Total Protein 6.8 g/dL (6.5-8.0)
== END 2021-04-16 14:40 | disposition home or self-care (01) ==
PROVIDERS: Emergency Provider Emergency Medicine; PCP Internal Medicine
DX: R53.83 Other fatigue (principal); Z20.822 Contact with and (suspected) exposure to COVID-19; R53.81 Other malaise
CPT/HCPCS: 36415; 80048; 80076; 81001; 81025; 85025; 87635; 93005; 99283; 99284

== ENCOUNTER 2021-04-17 21:23 | Emergency (ER) | payer OTHER, SELFPAY ==
[2021-04-17 21:30] VITALS: PULSE 103; O2SAT 98; BMI 45.3
--- NOTE | 2021-04-17 21:31 | ED.PSYCH ---
HPI - Psych General Chief Complaint: Psychiatric Symptoms Stated Complaint: crisis Time Seen by Provider: 04/17/21 21:30 Source: patient Mode of arrival: ambulatory Limitations: no limitations History of Present Illness HPI Narrative: 40-year-old female presents via EMS for paranoid delusions. Patient states that she is by God's intervention and has had a hysterectomy about 10 years ago. MD complaint: hallucinations and other (Delusions) Onset (ago): unknown Duration: constant History of same: Yes Relieving factors: none Exacerbating factors: none Associated psychiatric symptoms: delusions Associated symptoms: denies other symptoms Treatments prior to arrival: none Related Data Home Medications Medication Instructions Recorded Confirmed albuterol sulfate 90 mcg/actuation 1 puff INHALATION Q3-4H PRN 04/17/21 04/17/21 aerosol inhaler (Ventolin HFA) cetirizine 10 mg tablet 1 tab PO DAILY 04/17/21 04/17/21 gabapentin 600 mg tablet 1 tab PO TID 04/17/21 04/17/21 levothyroxine 75 mcg tablet 1 tab PO DAILY 04/17/21 04/17/21 ondansetron HCl 4 mg tablet 4 mg PO Q6H PRN 04/17/21 04/17/21 Allergies Allergy/AdvReac Type Severity Reaction Status Date / Time latex [LATEX] Allergy Mild HIVES Verified 08/26/20 13:34 Review of Systems Review of Systems: Constitutional: No Fever, No Chills ENT/Mouth: No Ear Pain, No Nasal Congestion, No sore throat Eyes: No Eye Pain, No Swelling, No Redness Cardiovascular: No Chest Pain, No SOB Respiratory: No Cough, No Sputum, No Dyspnea Gastrointestinal: No Nausea, No Vomiting, No Diarrhea, No Hematochezia, No Melena Genitourinary: No Dysuria, No Urinary Frequency, No Hematuria Musculoskeletal: No Myalgias Skin: No Skin Lesions, No rash Neuro: No Weakness, No Numbness, No Paresthesias, No Dizziness, No Headache Psych: Positive delusions, positive Anxiety, positive Depression, no SI/HI Heme/Lymph: No Lymphadenopathy Endocrine: No Polyuria, No Polydipsia Yes all other systems are reviewed and are negative PMFSH Past Medical History Attestation statement: The following information was validated with the patient. Source: old records reviewed Medical History Bipolar disorder Dizziness Fibromyalgia Vertigo Surgical History History of appendectomy History of hysterectomy Hx of cholecystectomy Social History Social History Alcohol intake: never Patient Tobacco Use Status: Former Tobacco user Advance Directives: No Advance Directives Information Provided: No Patient : No Physical Exam Vital Signs: Vital Signs: Last Vital Signs Pulse 103 H 04/17/21 21:30 Pulse Ox 98 04/17/21 21:30 BMI result Body Mass Index 45.3 Appearance: Alert. Oriented X3. Moderate psychiatric distress. Eyes: Pupils equal, round and reactive to light. Sclera nonicteric. EOMI. ENT: Pharynx normal. Moist mucous membranes. Neck: Normal inspection. Neck supple. CVS: Normal heart rate and rhythm. Pulses normal. Respiratory: No respiratory distress. Breath sounds normal. Abdomen: Soft and nontender. Skin: Skin warm and dry. Normal skin color. Normal skin turgor. Extremities: No lower extremity edema. Gait well-balanced well coordinated. Neuro: No motor deficit. No sensory deficit. Cranial nerves 2-12 intact. Course Course Course Narrative: 40-year-old female presents via EMS for paranoid delusions she is . Has a history of hysterectomy, patient unable to be redirected, states that she knows that she is and has amniotic fluid dripping out of her body. Patient demanding amniotic fluid test, yelling, demanding pelvic ultrasound. I did offer bedside ultrasound which he gladly accepted. Bedside ultrasound indicated a full bladder but no uterus or grossly abnormal findings. Patient believes that she is by gauze intervention. Physician observation started. Psychiatric consult placed. Section 12 bed search. MDM - Psych Differential Diagnosis Differential diagnosis: Likely acute psychosis Medical Records Attestation: I reviewed the patient's medical records. Lab Data Attestation: I reviewed the patient's lab results. Labs: Lab Results 04/17/21 04/17/21 04/17/21 Range/Units 21:51 21:52 21:52 Urine Color YELLOW Urine Appearance CLEAR Urine pH 6.0 (5.0-8.0) Ur Specific [place] 1.010 (1.005-1.025) Urine Protein TRACE (NEG-TRACE) MG/DL Urine Glucose (UA) 250 H (NEG) MG/DL Urine Ketones NEG (NEG) MG/DL Urine Blood NEG (NEG) Urine Nitrite NEG (NEG) Ur Leukocyte Esterase NEG (NEG) Urine RBC 0 (0) /HPF Urine WBC 0 (0-4) /HPF Ur Squamous Epith Cells 1+ /LPF Urine Bacteria 1+ /LPF Urine Test (NEGATIVE) Urine Opiates Screen Not Detected (Not Detect) Urine Fentanyl Screen Not Detected (Not Detect) Ur Barbiturates Screen Not Detected (Not Detect) Ur Phencyclidine Scrn Not Detected (Not Detect) Ur Amphetamines Screen Not Detected (Not Detect) U Benzodiazepines Scrn Not Detected (Not Detect) Urine Cocaine Screen Not Detected (Not Detect) U Marijuana (THC) Screen Not Detected (Not Detect) COVID-19 (NIKHIL) Negative (Negative) COVIDWaizy See Note 04/17/21 Range/Units 21:52 Urine Color Urine Appearance Urine pH (5.0-8.0) Ur Specific [place] (1.005-1.025) Urine Protein (NEG-TRACE) MG/DL Urine Glucose (UA) (NEG) MG/DL Urine Ketones (NEG) MG/DL Urine Blood (NEG) Urine Nitrite (NEG) Ur Leukocyte Esterase (NEG) Urine RBC (0) /HPF Urine WBC (0-4) /HPF Ur Squamous Epith Cells /LPF Urine Bacteria /LPF Urine Test NEGATIVE (NEGATIVE) Urine Opiates Screen (Not Detect) Urine Fentanyl Screen (Not Detect) Ur Barbiturates Screen (Not Detect) Ur Phencyclidine Scrn (Not Detect) Ur Amphetamines Screen (Not Detect) U Benzodiazepines Scrn (Not Detect) Urine Cocaine Screen (Not Detect) U Marijuana (THC) Screen (Not Detect) COVID-19 (NIKHIL) (Negative) COVIDWaizy Discharge Plan Discharge Clinical Impression: Acute psychosis Patient Disposition: Still a Patient Prescriptions: No Action gabapentin 600 mg tablet 1 tab PO TID RF: 0 cetirizine 10 mg tablet 1 tab PO DAILY RF: 0 ondansetron HCl 4 mg tablet 4 mg PO Q6H PRN (Reason: Nausea And Vomiting) RF: 0 levothyroxine 75 mcg tablet 1 tab PO DAILY RF: 0 albuterol sulfate [Ventolin HFA] 90 mcg/actuation HFA aerosol inhaler 1 puff inhalation Q3-4H PRN (Reason: Wheezing) RF: 0
[2021-04-17 22:12] LABS: Appearance Urine CLEAR; Color Urine YELLOW; Glucose Urine UA 250 MG/DL (NEG); Leukocyte Esterase Urine NEG (NEG); Nitrite Urine NEG (NEG); Urine Blood NEG (NEG); Urine Ketones NEG (NEG); Urine Protein TRACE MG/DL (NEG-TRACE)
[2021-04-17 22:14] LABS: UPreg QC Valid YES; Urine Pregnancy NEGATIVE (NEGATIVE)
[2021-04-17 22:23] LABS: Bacteria Urine 1+ /LPF; RBC Urine 0 /HPF (0); Squamous Epithelial Cell Urine 1+ /LPF; WBC Urine 0 /HPF (0-4)
[2021-04-17 22:28] LABS: Amphetamine Screen Urine Not Detected (Not Detect); Barbiturates, Urine Not Detected (Not Detect); Benzodiazepines Screen Urine Not Detected (Not Detect); Cannabinoid Screen Urine Not Detected (Not Detect); Cocaine Screen Urine Not Detected (Not Detect); Fentanyl, urine Not Detected (Not Detect); Opiate Screen Urine Not Detected (Not Detect); Phencyclidine Screen Urine Not Detected (Not Detect)
[2021-04-17 22:31] LABS: COVID-19 Test Negative (Negative)
[2021-04-18] MEDS: LORazepam 1 MG TABLET PO ×2 (01:21→08:11)
--- NOTE | 2021-04-18 03:14 | PC.NURSE ---
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 but slowly became compliant, patient is adamant that she is and at the same time repeatedly reporting that she had hysterectomy 15 years ago, in order convince patient she is not provider did ultra sound and result was mad aware to the patient that she is not , patient participated well with care team screening, disposition is section 12 inpatient bed search, patient is coherent in thought process but thought content at time presents as paranoid delusional particularly over her , mood expansive, requested Ativan for her anxiety, provider notified ordered Ativan 1 mg PO administered at 0121 with positive effect, patient is currently appears sleeping, will continue to monitor.
[2021-04-18 05:43] LABS: Glucose, Whole Blood 108 mg/dL (60-115)
[2021-04-18 06:31] VITALS: BP 127/83; PULSE 69; RESP 16; TEMP 36.2; O2SAT 99
--- NOTE | 2021-04-18 07:16 | PC.NURSE ---
patient appeared to remain asleep at beginning of shit respirations are even and unlabored patient appeared in no distress
[2021-04-18 10:01] VITALS: BP 128/89; PULSE 88; RESP 17; TEMP 37.2; O2SAT 98
--- NOTE | 2021-04-18 12:15 | PC.NURSE ---
late entry. patient this morning was observed yelping out of room i see a head patient believed that she had a fetus emerging from the canal. t/w attended to patient and attempted to reassure her, patient was bearing down (laying on back with drape covering her from the waist down) (pat had removed panand what appeared to be a cervix/portion of vaginal canal was at plane/entrance to vagina. t/w encouraged patient to stop this behavior as i thought it may result in injury to client. t/w explained that even after hysterectomy structures could remain that she is misperceiving what it is. t/w had pursued and gave 1mg ativan po to decrease patients distress.
[2021-04-18 13:11] LABS: MANUAL DIFF FLAG NO
[2021-04-18 13:12] LABS: Basophils Percent Auto 0.2 % (0-2); Eosinophils Percent Auto 0.2 % (0-4); Hematocrit 42.7 % (37.0-47.0); Hemoglobin 13.7 g/dl (12.0-16.0); Imm Gran Abs Auto 0.04 X10*3/uL (0.00-0.03); Imm Gran Pct Auto 0.3 % (0.0-0.4); Lymphocytes Absolute Auto 2.2 X10*3/uL (1.2-4.9); Lymphocytes Percent Auto 17.3 % (20-40); Mean Corpuscular HGB Conc 32.1 g/dl (31.0-35.0); Mean Corpuscular Hemoglobin 27.7 pg (27.0-33.0); Mean Corpuscular Volume 86.3 fL (80.0-98.0); Mean Platelet Volume 9.5 fL (9.4-12.3); Monocytes Absolute Auto 0.5 X10*3/uL (0.1-1.2); Monocytes Percent Auto 3.9 % (2-11); Neutrophils Absolute Auto 9.8 x10*3/uL (2.0-8.3); Neutrophils Percent Auto 78.1 % (45-73); Platelet Count 440 X10*3/uL (160-400); Red Blood Count 4.95 X10*6/uL (4.20-5.50); Red Cell Distribution Width 14.9 % (11.0-16.0); White Blood Count 12.6 X10*3/uL (4.8-10.8)
[2021-04-18 13:29] LABS: Alanine Aminotransferase 14 U/L (0-31); Albumin Level 4.3 g/dL (3.5-5.0); Alkaline Phosphatase 99 U/L (39-117); Anion Gap 12 (12-20); Aspartate Amino Transferase 13 U/L (5-31); Bilirubin Direct 0.3 mg/dL (0.0-0.5); Bilirubin Total 0.7 mg/dL (0.0-1.0); Blood Urea Nitrogen 8 mg/dL (9-16); Calcium 9.8 mg/dL (8.4-10.2); Carbon Dioxide 26 mmol/L (22-29); Chloride 106 mmol/L (96-108); Creatinine Clr Calc Pharmacy 123.5; Estimated Glomerular Filt Rate > 60; Glucose Random 172 mg/dL (60-115); Magnesium 2.1 mg/dL (1.6-2.6); Potassium 4.2 mmol/L (3.3-5.1); Sodium 140 mmol/L (135-145); Total Protein 7.3 g/dL (6.5-8.0)
[2021-04-18 13:50] LABS: TSH reflex Free T4 1.74 uIU/mL (0.32-4.0)
--- NOTE | 2021-04-18 16:03 | MHC.CARE ---
CARE Team meets with pt to determine if her presentation has changed since this morning.? Pt is alert and oriented and presented much in the same way she did when re assessed this morning.? Pt expressed a desire to be discharged.? She was offered a voluntary admission which she politely declined. Pt?s nurse reports that her thyroid test returned with nothing abnormal.? Psychiatry provider Yodit asked that one be done to determine if there were any thyroid issues that may have contributed to pt?s presentation yesterday evening. CARE Team speaks with pt?s Mother Ms. Holbrook and pt?s son Jose G regarding the plan to discharge pt home.? Both Jose G and Ms. Holbrook are agreeable to pt going home and Pt?s son Jose G agreed to check in on her.? The plan is to discharge pt home with referrals.? CARE Team will place referrals for [facility] and the Partial Hospitalization program.? This disposition was discussed with and agreed upon by Psychiatric provider Lucille Monsivais, ED provider Chloe Gray and pt?s nurse RN Walter Aguirre.
== END 2021-04-18 16:07 | disposition home or self-care (01) ==
PROVIDERS: Nurse Practitioner Family; Physician Assistant; Emergency Provider Emergency Medicine Emergency Medical Services; PCP Internal Medicine
DX: F22 Delusional disorders (principal); Z20.822 Contact with and (suspected) exposure to COVID-19; Z79.899 Other long term (current) drug therapy
CPT/HCPCS: 36415; 80048; 80076; 80307; 81001; 81025; 82947; 83735; 84443; 85025; 87635; 99284; 99285

== ENCOUNTER 2021-07-18 12:54 | Inpatient (IN) | payer OTHER, SELFPAY ==
[2021-07-18] VITALS (7 sets, daily range): BP systolic 121–162; BP diastolic 57–100; PULSE 74–94; RESP 14–20; TEMP 36.8; O2SAT 98–100; BMI 47.7
--- NOTE | 2021-07-18 13:06 | PC.NURSE ---
unable to complete [place] and psych assessments. patient refusing to answer RN when asked questions.
--- NOTE | 2021-07-18 13:16 | ED_ITS ---
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 Phencyclidine Scrn (Not Detect) Ur Amphetamines Screen (Not Detect) U Benzodiazepines Scrn (Not Detect) Urine Cocaine Screen (Not Detect) U Marijuana (THC) Screen (Not Detect) Ethyl Alcohol < 10 mg/dL COVID-19 (NIKHIL) (Negative) COVID-19 Clin Com 07/18/21 Range/Units 20:40 WBC (4.8-10.8) X10*3/uL RBC (4.20-5.50) X10*6/uL Hgb (12.0-16.0) g/dl Hct (37.0-47.0) % MCV (80.0-98.0) fL MCH (27.0-33.0) pg MCHC (31.0-35.0) g/dl RDW (11.0-16.0) % Plt Count (160-400) X10*3/uL MPV (9.4-12.3) fL Immature Gran % (Auto) (0.0-0.4) % Neut % (Auto) (45-73) % Lymph % (Auto) (20-40) % [place] % (Auto) (2-11) % Eos % (Auto) (0-4) % Baso % (Auto) (0-2) % Lymph # (Auto) (1.2-4.9) X10*3/uL [place] # (Auto) (0.1-1.2) X10*3/uL Eos # (Auto) (0.0-0.4) X10*3/uL Baso # (Auto) (0.0-0.2) X10*3/uL Abs Immat Gran (auto) (0.00-0.03) X10*3/uL Absolute Neuts (auto) (2.0-8.3) x10*3/uL Absolute Nucleated RBC (0.0-0.012) X10*3/uL Nucleated RBC % (auto) (0.0-0.2) /100WBC Sodium (135-145) mmol/L Potassium (3.3-5.1) mmol/L Chloride (96-108) mmol/L Carbon Dioxide (22-29) mmol/L Anion Gap (12-20) BUN (9-16) mg/dL Creatinine (0.5-1.4) mg/dL Estim Creat Clear Calc Estimated GFR Random Glucose (60-115) mg/dL Calcium (8.4-10.2) mg/dL Magnesium (1.6-2.6) mg/dL Total Bilirubin (0.0-1.0) mg/dL Direct Bilirubin (0.0-0.5) mg/dL AST (5-31) U/L ALT (0-31) U/L Alkaline Phosphatase (39-117) U/L Total Creatine Kinase (26-140) U/L Total Protein (6.5-8.0) g/dL Albumin (3.5-5.0) g/dL Urine Color Urine Appearance Urine pH (5.0-8.0) Ur Specific [place] (1.005-1.025) Urine Protein (NEG-TRACE) MG/DL Urine Glucose (UA) (NEG) MG/DL Urine Ketones (NEG) MG/DL Urine Blood (NEG) Urine Nitrite (NEG) Ur Leukocyte Esterase (NEG) Urine RBC (0) /HPF Urine WBC (0-4) /HPF Ur Squamous Epith Cells /LPF Urine Bacteria /LPF Urine Test (NEGATIVE) Urine Opiates Screen Not Detected (Not Detect) Urine Fentanyl Screen Not Detected (Not Detect) Ur Barbiturates Screen Not Detected (Not Detect) Ur Phencyclidine Scrn Not Detected (Not Detect) Ur Amphetamines Screen Not Detected (Not Detect) U Benzodiazepines Scrn Not Detected (Not Detect) Urine Cocaine Screen Not Detected (Not Detect) U Marijuana (THC) Screen Not Detected (Not Detect) Ethyl Alcohol mg/dL COVID-19 (NIKHIL) (Negative) COVID-19 Clin Com <TAMMIE Corea - Last Filed: 07/23/21 03:09> Lab Results 07/18/21 07/18/21 07/18/21 Range/Units 14:12 14:12 14:12 WBC 12.4 H (4.8-10.8) X10*3/uL RBC 4.82 (4.20-5.50) X10*6/uL Hgb 13.2 (12.0-16.0) g/dl Hct 40.9 (37.0-47.0) % MCV 84.9 (80.0-98.0) fL MCH 27.4 (27.0-33.0) pg MCHC 32.3 (31.0-35.0) g/dl RDW 15.0 (11.0-16.0) % Plt Count 409 H (160-400) X10*3/uL MPV 9.5 (9.4-12.3) fL Immature Gran % (Auto) 0.3 (0.0-0.4) % Neut % (Auto) 78.1 H (45-73) % Lymph % (Auto) 14.0 L (20-40) % [place] % (Auto) 7.2 (2-11) % Eos % (Auto) 0.2 (0-4) % Baso % (Auto) 0.2 (0-2) % Lymph # (Auto) 1.7 (1.2-4.9) X10*3/uL [place] # (Auto) 0.9 (0.1-1.2) X10*3/uL Eos # (Auto) 0.0 (0.0-0.4) X10*3/uL Baso # (Auto) 0.0 (0.0-0.2) X10*3/uL Abs Immat Gran (auto) 0.04 H (0.00-0.03) X10*3/uL Absolute Neuts (auto) 9.6 H (2.0-8.3) x10*3/uL Absolute Nucleated RBC 0.000 (0.0-0.012) X10*3/uL Nucleated RBC % (auto) 0.0 (0.0-0.2) /100WBC Sodium 141 (135-145) mmol/L Potassium 3.8 (3.3-5.1) mmol/L Chloride 107 (96-108) mmol/L Carbon Dioxide 25 (22-29) mmol/L Anion Gap 13 (12-20) BUN 12 (9-16) mg/dL Creatinine 0.79 (0.5-1.4) mg/dL Estim Creat Clear Calc 131.3 Estimated GFR > 60 Random Glucose 93 (60-115) mg/dL Calcium 9.5 (8.4-10.2) mg/dL Magnesium 2.3 (1.6-2.6) mg/dL Total Bilirubin 0.9 (0.0-1.0) mg/dL Direct Bilirubin 0.4 (0.0-0.5) mg/dL AST 18 (5-31) U/L ALT 22 (0-31) U/L Alkaline Phosphatase 97 (39-117) U/L Total Creatine Kinase 147 H (26-140) U/L Total Protein 7.2 (6.5-8.0) g/dL Albumin 4.2 (3.5-5.0) g/dL Urine Color Urine Appearance Urine pH (5.0-8.0) Ur Specific [place] (1.005-1.025) Urine Protein (NEG-TRACE) MG/DL Urine Glucose (UA) (NEG) MG/DL Urine Ketones (NEG) MG/DL Urine Blood (NEG) Urine Nitrite (NEG) Ur Leukocyte Esterase (NEG) Urine RBC (0) /HPF Urine WBC (0-4) /HPF Ur Squamous Epith Cells /LPF Urine Bacteria /LPF Urine Test (NEGATIVE) Urine Opiates Screen (Not Detect) Urine Fentanyl Screen (Not Detect) Ur Barbiturates Screen (Not Detect) Ur Phencyclidine Scrn (Not Detect) Ur Amphetamines Screen (Not Detect) U Benzodiazepines Scrn (Not Detect) Urine Cocaine Screen (Not Detect) U Marijuana (THC) Screen (Not Detect) Ethyl Alcohol mg/dL COVID-19 (NIKHIL) Negative (Negative) COVID-19 Clin Com See Note 07/18/21 07/18/21 07/18/21 Range/Units 14:12 20:40 20:40 WBC (4.8-10.8) X10*3/uL RBC (4.20-5.50) X10*6/uL Hgb (12.0-16.0) g/dl Hct (37.0-47.0) % MCV (80.0-98.0) fL MCH (27.0-33.0) pg MCHC (31.0-35.0) g/dl RDW (11.0-16.0) % Plt Count (160-400) X10*3/uL MPV (9.4-12.3) fL Immature Gran % (Auto) (0.0-0.4) % Neut % (Auto) (45-73) % Lymph % (Auto) (20-40) % [place] % (Auto) (2-11) % Eos % (Auto) (0-4) % Baso % (Auto) (0-2) % Lymph # (Auto) (1.2-4.9) X10*3/uL [place] # (Auto) (0.1-1.2) X10*3/uL Eos # (Auto) (0.0-0.4) X10*3/uL Baso # (Auto) (0.0-0.2) X10*3/uL Abs Immat Gran (auto) (0.00-0.03) X10*3/uL Absolute Neuts (auto) (2.0-8.3) x10*3/uL Absolute Nucleated RBC (0.0-0.012) X10*3/uL Nucleated RBC % (auto) (0.0-0.2) /100WBC Sodium (135-145) mmol/L Potassium (3.3-5.1) mmol/L Chloride (96-108) mmol/L Carbon Dioxide (22-29) mmol/L Anion Gap (12-20) BUN (9-16) mg/dL Creatinine (0.5-1.4) mg/dL Estim Creat Clear Calc Estimated GFR Random Glucose (60-115) mg/dL Calcium (8.4-10.2) mg/dL Magnesium (1.6-2.6) mg/dL Total Bilirubin (0.0-1.0) mg/dL Direct Bilirubin (0.0-0.5) mg/dL AST (5-31) U/L ALT (0-31) U/L Alkaline Phosphatase (39-117) U/L Total Creatine Kinase (26-140) U/L Total Protein (6.5-8.0) g/dL Albumin (3.5-5.0) g/dL Urine Color YELLOW Urine Appearance CLEAR Urine pH 6.0 (5.0-8.0) Ur Specific [place] 1.025 (1.005-1.025) Urine Protein TRACE (NEG-TRACE) MG/DL Urine Glucose (UA) NEG (NEG) MG/DL Urine Ketones 15 (NEG) MG/DL Urine Blood TRACE (NEG) Urine Nitrite NEG (NEG) Ur Leukocyte Esterase NEG (NEG) Urine RBC 1-4 (0) /HPF Urine WBC 0-2 (0-4) /HPF Ur Squamous Epith Cells 3+ /LPF Urine Bacteria 3+ /LPF Urine Test NEGATIVE (NEGATIVE) Urine Opiates Screen (Not Detect) Urine Fentanyl Screen (Not Detect) Ur Barbiturates Screen (Not Detect) Ur Phencyclidine Scrn (Not Detect) Ur Amphetamines Screen (Not Detect) U Benzodiazepines Scrn (Not Detect) Urine Cocaine Screen (Not Detect) U Marijuana (THC) Screen (Not Detect) Ethyl Alcohol < 10 mg/dL COVID-19 (NIKHIL) (Negative) COVID-19 Clin Com 07/18/21 Range/Units 20:40 WBC (4.8-10.8) X10*3/uL RBC (4.20-5.50) X10*6/uL Hgb (12.0-16.0) g/dl Hct (37.0-47.0) % MCV (80.0-98.0) fL MCH (27.0-33.0) pg MCHC (31.0-35.0) g/dl RDW (11.0-16.0) % Plt Count (160-400) X10*3/uL MPV (9.4-12.3) fL Immature Gran % (Auto) (0.0-0.4) % Neut % (Auto) (45-73) % Lymph % (Auto) (20-40) % [place] % (Auto) (2-11) % Eos % (Auto) (0-4) % Baso % (Auto) (0-2) % Lymph # (Auto) (1.2-4.9) X10*3/uL [place] # (Auto) (0.1-1.2) X10*3/uL Eos # (Auto) (0.0-0.4) X10*3/uL Baso # (Auto) (0.0-0.2) X10*3/uL Abs Immat Gran (auto) (0.00-0.03) X10*3/uL Absolute Neuts (auto) (2.0-8.3) x10*3/uL Absolute Nucleated RBC (0.0-0.012) X10*3/uL Nucleated RBC % (auto) (0.0-0.2) /100WBC Sodium (135-145) mmol/L Potassium (3.3-5.1) mmol/L Chloride (96-108) mmol/L Carbon Dioxide (22-29) mmol/L Anion Gap (12-20) BUN (9-16) mg/dL Creatinine (0.5-1.4) mg/dL Estim Creat Clear Calc Estimated GFR Random Glucose (60-115) mg/dL Calcium (8.4-10.2) mg/dL Magnesium (1.6-2.6) mg/dL Total Bilirubin (0.0-1.0) mg/dL Direct Bilirubin (0.0-0.5) mg/dL AST (5-31) U/L ALT (0-31) U/L Alkaline Phosphatase (39-117) U/L Total Creatine Kinase (26-140) U/L Total Protein (6.5-8.0) g/dL Albumin (3.5-5.0) g/dL Urine Color Urine Appearance Urine pH (5.0-8.0) Ur Specific [place] (1.005-1.025) Urine Protein (NEG-TRACE) MG/DL Urine Glucose (UA) (NEG) MG/DL Urine Ketones (NEG) MG/DL Urine Blood (NEG) Urine Nitrite (NEG) Ur Leukocyte Esterase (NEG) Urine RBC (0) /HPF Urine WBC (0-4) /HPF Ur Squamous Epith Cells /LPF Urine Bacteria /LPF Urine Test (NEGATIVE) Urine Opiates Screen Not Detected (Not Detect) Urine Fentanyl Screen Not Detected (Not Detect) Ur Barbiturates Screen Not Detected (Not Detect) Ur Phencyclidine Scrn Not Detected (Not Detect) Ur Amphetamines Screen Not Detected (Not Detect) U Benzodiazepines Scrn Not Detected (Not Detect) Urine Cocaine Screen Not Detected (Not Detect) U Marijuana (THC) Screen Not Detected (Not Detect) Ethyl Alcohol mg/dL COVID-19 (NIKHIL) (Negative) COVID-19 Clin Com <Carlita Nesbitt NP - Last Filed: 07/23/21 08:20> Discharge Plan Discharge Clinical Impression: Acute psychosis <TAMMIE Ramirez - Last Filed: 07/22/21 11:37> Patient Disposition: Still a Patient <TAMMIE Ramirez - Last Filed: 07/22/21 11:37> Prescriptions: No Action cetirizine 10 mg tablet 1 tab PO DAILY 0RF gabapentin 600 mg tablet 1 tab PO TID 0RF levothyroxine 75 mcg tablet 1 tab PO DAILY 0RF albuterol sulfate [Ventolin HFA] 90 mcg/actuation HFA aerosol inhaler 1 puff inhalation Q3-4H 0RF risperidone 1 mg tablet 1 tab PO BID 0RF lithium carbonate 600 mg capsule 1 cap PO BID 0RF <TAMMIE Ramirez - Last Filed: 07/22/21 11:37> Referrals: Physician,Unknown J [Primary Care Provider] - 2 days (your pcp) <TAMMIE Ramirez - Last Filed: 07/22/21 11:37>
[2021-07-18 14:16] LABS: MANUAL DIFF FLAG NO
[2021-07-18 14:18] LABS: Basophils Percent Auto 0.2 % (0-2); Eosinophils Percent Auto 0.2 % (0-4); Hematocrit 40.9 % (37.0-47.0); Hemoglobin 13.2 g/dl (12.0-16.0); Imm Gran Abs Auto 0.04 X10*3/uL (0.00-0.03); Imm Gran Pct Auto 0.3 % (0.0-0.4); Lymphocytes Absolute Auto 1.7 X10*3/uL (1.2-4.9); Mean Corpuscular HGB Conc 32.3 g/dl (31.0-35.0); Mean Corpuscular Hemoglobin 27.4 pg (27.0-33.0); Mean Corpuscular Volume 84.9 fL (80.0-98.0); Mean Platelet Volume 9.5 fL (9.4-12.3); Monocytes Absolute Auto 0.9 X10*3/uL (0.1-1.2); Monocytes Percent Auto 7.2 % (2-11); Neutrophils Absolute Auto 9.6 x10*3/uL (2.0-8.3); Neutrophils Percent Auto 78.1 % (45-73); Platelet Count 409 X10*3/uL (160-400); Red Blood Count 4.82 X10*6/uL (4.20-5.50); White Blood Count 12.4 X10*3/uL (4.8-10.8)
[2021-07-18 14:32] LABS: Ethanol < 10 mg/dL
[2021-07-18 14:35] LABS: COVID-19 Test Negative (Negative)
[2021-07-18 14:36] LABS: Anion Gap 13 (12-20); Bilirubin Direct 0.4 mg/dL (0.0-0.5); Bilirubin Total 0.9 mg/dL (0.0-1.0); Blood Urea Nitrogen 12 mg/dL (9-16); Calcium 9.5 mg/dL (8.4-10.2); Carbon Dioxide 25 mmol/L (22-29); Chloride 107 mmol/L (96-108); Creatinine Clr Calc Pharmacy 131.3; Estimated Glomerular Filt Rate > 60; Glucose Random 93 mg/dL (60-115); Magnesium 2.3 mg/dL (1.6-2.6); Potassium 3.8 mmol/L (3.3-5.1); Sodium 141 mmol/L (135-145)
[2021-07-18 14:37] LABS: Alanine Aminotransferase 22 U/L (0-31); Albumin Level 4.2 g/dL (3.5-5.0); Alkaline Phosphatase 97 U/L (39-117); Aspartate Amino Transferase 18 U/L (5-31); Total Protein 7.2 g/dL (6.5-8.0)
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
[2021-07-18] MEDS: diphenhydrAMINE HCL 50 MG/ML VIAL IM (19:10)
[2021-07-18] MEDS: LORazepam 2 MG/ML VIAL IM (19:15)
[2021-07-18] MEDS: Haloperidol Lactate 5 MG/ML VIAL IM (19:15)
[2021-07-18 20:55] LABS: Appearance Urine CLEAR; Color Urine YELLOW; Glucose Urine UA NEG (NEG); Leukocyte Esterase Urine NEG (NEG); Nitrite Urine NEG (NEG); Specific Gravity - Urine 1.025 (1.005-1.025); UACC Culture Trigger NO; Urine Blood TRACE (NEG); Urine Ketones 15 MG/DL (NEG); Urine Protein TRACE MG/DL (NEG-TRACE)
[2021-07-18 20:56] LABS: UPreg QC Valid YES; Urine Pregnancy NEGATIVE (NEGATIVE)
[2021-07-18 20:59] LABS: Bacteria Urine 3+ /LPF; Squamous Epithelial Cell Urine 3+ /LPF; WBC Urine 0-2 /HPF (0-4)
[2021-07-18 21:08] LABS: Amphetamine Screen Urine Not Detected (Not Detect); Barbiturates, Urine Not Detected (Not Detect); Benzodiazepines Screen Urine Not Detected (Not Detect); Cannabinoid Screen Urine Not Detected (Not Detect); Cocaine Screen Urine Not Detected (Not Detect); Fentanyl, urine Not Detected (Not Detect); Opiate Screen Urine Not Detected (Not Detect); Phencyclidine Screen Urine Not Detected (Not Detect)
[2021-07-18] MEDS: OLANZapine 10 MG TABLET PO (21:42)
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
[2021-07-19] MEDS: OLANZapine 5 MG TABLET PO (05:08)
[2021-07-19 05:09] VITALS: BP 101/64; PULSE 73; RESP 19; TEMP 36.6; O2SAT 97
--- NOTE | 2021-07-19 06:07 | PC.NURSE ---
Patient slept through the night, out of room x 3 for bathroom use and back, patient received Olanzapine 10 mg PO at 2142, and Olanzapine 5 mg PO at 0508 for paranoia, patient is on 1:1 while awake for behavior unpredictability and assaultive risk, patient assessed by care team, disposition is section 12 inpatient bed search, behavior calm at this time, thought process and content clearing, VSS, medication compliant, med rec completed/pending provider's approval, will continue to monitor.
--- NOTE | 2021-07-19 07:42 | PC.NURSE ---
pt awake and out of room. 1:1 staff member with pt while awake/OOB. at this time, pt calm, ate breakfast. NAD
[2021-07-19 10:39] VITALS: RESP 17
--- NOTE | 2021-07-19 10:57 | PC.NURSE ---
pt OOB to common area with 1:1 staff - pt reports pain to lower abd. offered pain medication but pt refused at this time. reported it goes away . pt reported she is seeing witches. she is calm and in behavioral control at this time.
[2021-07-19 10:58] VITALS: BP 140/62; PULSE 66; O2SAT 98
--- NOTE | 2021-07-19 11:20 | PC.NURSE ---
offered pt her PRN Zyprexa for comfort. pt refused at this time. offered pt education on the medication and its availability to her today. pt reported she doesn't want to take any medication .
--- NOTE | 2021-07-19 11:44 | PC.NURSE ---
pt OOB to shower.
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
[2021-07-19 16:02] VITALS: BP 109/73; PULSE 85; TEMP 36.7; O2SAT 99
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
[2021-07-20] MEDS: OLANZapine 5 MG TABLET PO ×3 (02:26→12:52)
[2021-07-20] MEDS: Omeprazole 40 MG CAPSULE.DR PO (02:26)
[2021-07-20] MEDS: LORazepam 1 MG TABLET PO (04:42)
--- NOTE | 2021-07-20 07:33 | PC.NURSE ---
Patient slept well, woke up at 0400, requested PRN medication for sleep, Olanzapine 5 mg x 2 during overnight, Ativan 1 mg at 0442 with positive, patient currently bed appears sleeping, patient is on 1:1 while awake, behavior non concerning at this time, disposition per care team section 12 inpatient bed search, will continue to monitor.
[2021-07-20] MEDS: Gabapentin 600 MG TABLET PO ×2 (09:07→21:21)
[2021-07-20] MEDS: Levothyroxine Sodium 75 MCG TABLET PO (09:07)
[2021-07-20] MEDS: Lithium Carbonate 300 MG CAPSULE 600 MG PO ×2 (09:07→21:21)
[2021-07-20] MEDS: Loratadine 10 MG TABLET PO (09:07)
[2021-07-20] MEDS: risperiDONE 1 MG TABLET PO ×2 (09:07→21:21)
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
--- NOTE | 2021-07-20 16:58 | PC.NURSE ---
Patient was able to calm herself and ly down im medications were no longer warranted pa made aware
[2021-07-20] MEDS: LORazepam 1 MG TABLET 2 MG PO (21:21)
[2021-07-21 04:08] VITALS: BP 133/83; PULSE 103; RESP 20; TEMP 36.5; O2SAT 100
[2021-07-21] MEDS: OLANZapine 5 MG TABLET PO ×2 (04:30→20:32)
[2021-07-21] MEDS: LORazepam 1 MG TABLET 2 MG PO ×2 (04:30→20:31)
[2021-07-21] MEDS: Levothyroxine Sodium 75 MCG TABLET PO (04:33)
--- NOTE | 2021-07-21 07:33 | PC.NURSE ---
Patient slept through the night, no distress observed/reported, behavior non concerning, medication compliant, disposition per care team is section 12 inpatient bed search, patient was restless when she woke up, PRN Olanzapine 5 mg and Ativan 2 mg administered at 0430 with + effect, will continue to monitor.
[2021-07-21] MEDS: Lithium Carbonate 300 MG CAPSULE 600 MG PO ×2 (09:08→20:31)
[2021-07-21] MEDS: Gabapentin 600 MG TABLET PO ×3 (09:08→20:32)
[2021-07-21] MEDS: Loratadine 10 MG TABLET PO (09:08)
[2021-07-21] MEDS: risperiDONE 1 MG TABLET PO ×2 (09:08→20:32)
--- NOTE | 2021-07-21 11:14 | PC.NURSE ---
Pt is Alert, oriented to person at this time. Did have an episode of stripping down naked and walking around the unit asking to speak to her a gravedigger she met here named Luis. Pt was redirected to her room and did get dressed back into BH clothing. Will continue to monitor.
[2021-07-21 14:35] VITALS: BP 120/67; PULSE 117; RESP 19; TEMP 37.2; O2SAT 98
[2021-07-21] MEDS: Albuterol Sulfate 90 MCG 8 GM INHALER 1 PUFF INHALE (17:03)
[2021-07-22] MEDS: OLANZapine 5 MG TABLET PO ×2 (04:57→13:46)
[2021-07-22] MEDS: Levothyroxine Sodium 75 MCG TABLET PO (04:57)
[2021-07-22 05:55] VITALS: BP 135/79; PULSE 83; RESP 17; TEMP 36.3; O2SAT 99
--- NOTE | 2021-07-22 06:28 | PC.NURSE ---
Patient slept through the night, no distress observed/reported, behavior non concerning, medication compliant, disposition per care team is section 12 inpatient bed search, patient was restless when she woke up, PRN Olanzapine 5 mg administered at 0457 with + effect, showered, refreshed with coffee, back to bed appears sleeping at this time, will continue to monitor.
[2021-07-22] MEDS: LORazepam 1 MG TABLET 2 MG PO ×2 (07:45→13:46)
[2021-07-22] MEDS: Lithium Carbonate 300 MG CAPSULE 600 MG PO ×2 (07:45→21:48)
[2021-07-22] MEDS: risperiDONE 1 MG TABLET PO ×2 (07:45→21:48)
[2021-07-22] MEDS: Gabapentin 600 MG TABLET PO ×3 (07:46→21:48)
[2021-07-22] MEDS: Loratadine 10 MG TABLET PO (07:46)
--- NOTE | 2021-07-22 07:51 | PC.NURSE ---
Pt janice, in community area, stating this hospital is full of witches Pt perseverating about how she is a prophet, making spiritual quotes. Pt medicated with morning meds a little early. Pt's mom aNy Holbrook would like phone call from crisis or psych team to discuss what is currently going on with her daughter's mental health [phone] Pt's mom said can also call son Jose G [phone]
--- NOTE | 2021-07-22 09:02 | PC.NURSE ---
Ativan appears to have been effective, pt calmer at this time, volume and tone of speech has decreased.
--- NOTE | 2021-07-22 09:54 | PC.NURSE ---
Pt sleeping at this time, resp reg and even, NAD.
[2021-07-22] MEDS: Docusate Sodium 100 MG CAPSULE PO ×2 (11:15→21:48)
[2021-07-22] MEDS: polyethylene glycoL 3350 17 GM POWD.PACK PO (11:15)
--- NOTE | 2021-07-22 11:19 | PC.NURSE ---
Pt medicated as charted.
--- NOTE | 2021-07-22 16:46 | MHC.CARE ---
Spoke to patient's son who called earlier leaving his contact information, wanted update. Jose G [phone]. He stated he would call his grandmother, Nay gave her number as [phone] and update her. Switch board called, patient's mother was on hold asking to speak with someone about her daughter. Is Citizen Of [place] speaking only will need to be called via pocket closer, left her number [phone]
[2021-07-22] MEDS: Haloperidol Lactate 5 MG/ML VIAL IM (19:09)
[2021-07-22] MEDS: LORazepam 2 MG/ML VIAL IM (19:09)
[2021-07-22] MEDS: diphenhydrAMINE HCL 50 MG/ML VIAL IM (19:09)
[2021-07-22 19:10] VITALS: RESP 20
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
[2021-07-22 19:25] VITALS: RESP 20
[2021-07-22 19:40] VITALS: RESP 18
[2021-07-22 19:55] VITALS: RESP 18
[2021-07-22 20:10] VITALS: BP 147/99; PULSE 97; RESP 18; O2SAT 99
--- NOTE | 2021-07-22 23:33 | PC.NURSE ---
Patient was found lying on the floor side of her bed, security camera checked, patient was seen rolling out of her bed intentionally landing on right shoulder, provider notified/reran the camera/notified us that it is non concerning/no new order placed, patient helped staff to get off the floor, back to bed, patient being closely monitored for safety, will continue to monitor.
--- NOTE | 2021-07-23 | ECG_ITS ---
Test Reason : MED CLEARANCE Blood Pressure : / mmHG Vent. Rate : 080 BPM Atrial Rate : 080 BPM P-R Int : 152 ms QRS Dur : 072 ms QT Int : 392 ms P-R-T Axes : 038 -17 009 degrees QTc Int : 452 ms Normal sinus rhythm Normal ECG When compared with ECG of 16-APR-2021 12:37, No significant change was found Referred By: Carlita Nesbitt Electronically Signed By:TONY SORIANO MD
[2021-07-23 06:08] VITALS: BP 127/79; PULSE 93; RESP 20; TEMP 36.6; O2SAT 100
[2021-07-23] MEDS: Levothyroxine Sodium 75 MCG TABLET PO (06:15)
--- NOTE | 2021-07-23 06:18 | PC.NURSE ---
Patient slept through the night, no distress observed/reported, patient was observed closely for the safety, mood pleasant currently, compliant with medication, disposition section 12 inpatient bed search per care team, pending admission to , VSS, will continue to monitor.
[2021-07-23] MEDS: OLANZapine 5 MG TABLET PO ×2 (06:24→12:25)
--- NOTE | 2021-07-23 07:05 | PC.NURSE ---
Report receive. Pt currently sleeping, respirations even and unlabored, in no apparent distress. PT is inpatient bedsearch.
[2021-07-23] MEDS: Loratadine 10 MG TABLET PO (08:28)
[2021-07-23] MEDS: LORazepam 1 MG TABLET 2 MG PO (08:28)
[2021-07-23] MEDS: Lithium Carbonate 300 MG CAPSULE 600 MG PO ×2 (08:28→20:55)
[2021-07-23] MEDS: Docusate Sodium 100 MG CAPSULE PO ×2 (08:28→20:56)
[2021-07-23] MEDS: Gabapentin 600 MG TABLET PO ×3 (08:28→20:55)
[2021-07-23] MEDS: risperiDONE 1 MG TABLET PO ×2 (08:28→20:55)
[2021-07-23 10:41] VITALS: BP 131/80; PULSE 103; TEMP 37.3; O2SAT 98
--- NOTE | 2021-07-23 11:09 | MHC.CARE ---
CARE Team speaks with pt?s Mother, Thao, who advises CARE Team that she had gone to pt?s apartment and discovered that all her possessions with the exception of a sofa, TV, and TV stand were gone.? She does not know if they were repossessed for missing payments, were stolen, or given away. She stated that pt has been acting odd lately and has behaved in an unpredictable fashion.? She reports that pt was discharged from inpatient at this facility in March 2021.? Sometime after her discharge she got an Uber and traveled to [place] where she was hospitalized for 10 days because her lithium levels were low.? Pt?s Mother is uncertain why pt traveled to [place] or what had occurred while she was there that precipitated her being brought to the hospital and later hospitalized.? Pt?s Mother reports that pt has not been taking her medications but believes that she has been filling her prescriptions and then throwing her medications out.? Pt?s Mother believes that it has been months since she last took her medication.? She reports that pt has been obsessed with christian and that this has been a source of discord between pt and her Mother.? Pt?s Mother is part of a different ramiro and pt has been confrontational about that. Pt?s Mother expresses concerns over her daughter?s safety and believes she requires community supports to administer her medications. Thao (Pt?s Mother) ? (House)/ Jose G (Son) ?
[2021-07-23 12:19] LABS: COVID-19 Test Negative (Negative)
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
--- NOTE | 2021-07-23 15:43 | PC.NURSE ---
Late entry for 07/18: patient was ordered meds ativan, haldol and benadryl for increased agitation. Upon assessing patient before administration this nurse noted that patient was resting comfortably and calmly in bed and stated that they were sorry for yelling out. PA was notified and stated that meds could be held off because they were at the time not warranted. Patient remained stable and calm for remainder of this nurses' 3-7 shift.
[2021-07-23 15:47] VITALS: BP 128/77; PULSE 68; RESP 16; TEMP 36.7; O2SAT 98
[2021-07-23 17:30] LABS: Lithium 0.62 mmol/L (0.60-1.20)
[2021-07-23 19:05] VITALS: BP 138/89; PULSE 106; TEMP 36.4
[2021-07-23] MEDS: traZODone HCL 50 MG TABLET PO ×2 (20:56→23:39)
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
[2021-07-24] MEDS: Levothyroxine Sodium 75 MCG TABLET PO (05:59)
[2021-07-24 06:00] VITALS: BP 131/73; PULSE 105; RESP 16; TEMP 36.5; O2SAT 98
[2021-07-24] MEDS: Lithium Carbonate 300 MG CAPSULE 600 MG PO ×2 (08:24→23:09)
[2021-07-24] MEDS: Gabapentin 600 MG TABLET PO ×3 (08:25→23:08)
[2021-07-24] MEDS: Docusate Sodium 100 MG CAPSULE PO (08:25)
[2021-07-24] MEDS: risperiDONE 1 MG TABLET PO ×2 (08:25→23:08)
[2021-07-24] MEDS: Loratadine 10 MG TABLET PO (08:25)
[2021-07-24 09:47] LABS: Cholesterol 144 mg/dL; HDL Cholesterol 47 mg/dL; LDL Cholesterol Calculated 79 mg/dl; Magnesium 2.1 mg/dL (1.6-2.6); Triglycerides 91 mg/dL
[2021-07-24 09:58] LABS: Free T4 (Free Thyroxine) 1.23 ng/dL (0.71-1.85); Thyroid Stimulating Hormone 0.64 uIU/mL (0.32-4.0)
[2021-07-24 10:18] LABS: Folate 11.4 ng/mL (> or = 4.0); Vitamin B12 612 pg/mL (200-900)
[2021-07-24 10:23] LABS: Estimated Average Glucose 111 mg/dL; Hemoglobin A1c % 5.5 %
--- NOTE | 2021-07-24 11:46 | PC.NURSE ---
pt. retracted 3 day notice on 07/24.
[2021-07-24] MEDS: OLANZapine 5 MG TABLET PO ×2 (12:38→19:07)
[2021-07-24] MEDS: LORazepam 1 MG TABLET 2 MG PO (12:38)
[2021-07-24 12:46] LABS: Glucose, Whole Blood 117 mg/dL (60-115)
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
[2021-07-24] MEDS: Albuterol Sulfate 90 MCG 8 GM INHALER 1 PUFF INHALE (16:16)
[2021-07-24] MEDS: Acetaminophen 325 MG TABLET 650 MG PO (16:22)
[2021-07-24 17:15] VITALS: BP 125/66; PULSE 108; TEMP 36.7; O2SAT 98
[2021-07-24] MEDS: Milk of Magnesia 30 ML ORAL.SUSP PO (17:23)
[2021-07-25] MEDS: hydrOXYzine HCL 25 MG TABLET PO
[2021-07-25] MEDS: traZODone HCL 50 MG TABLET PO (01:19)
[2021-07-25 06:00] VITALS: BP 129/88; PULSE 96; RESP 16; TEMP 36.2; O2SAT 97
[2021-07-25] MEDS: Levothyroxine Sodium 75 MCG TABLET PO (06:24)
[2021-07-25] MEDS: risperiDONE 1 MG TABLET PO ×2 (08:47→20:33)
[2021-07-25] MEDS: Loratadine 10 MG TABLET PO (08:47)
[2021-07-25] MEDS: Gabapentin 600 MG TABLET PO ×3 (08:47→20:33)
[2021-07-25] MEDS: Lithium Carbonate 300 MG CAPSULE 600 MG PO ×2 (08:47→20:33)
[2021-07-25] MEDS: Acetaminophen 325 MG TABLET 650 MG PO (09:29)
[2021-07-25 17:25] VITALS: BP 109/73; PULSE 96; RESP 16; TEMP 36.7; O2SAT 98
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
[2021-07-26] MEDS: Levothyroxine Sodium 75 MCG TABLET PO (05:43)
[2021-07-26 06:00] VITALS: BP 125/76; PULSE 76; RESP 16; TEMP 36.3; O2SAT 98
[2021-07-26] MEDS: Loratadine 10 MG TABLET PO (08:20)
[2021-07-26] MEDS: risperiDONE 1 MG TABLET PO ×2 (08:20→21:06)
[2021-07-26] MEDS: Gabapentin 600 MG TABLET PO ×3 (08:20→21:07)
[2021-07-26] MEDS: Lithium Carbonate 300 MG CAPSULE 600 MG PO ×2 (08:20→21:07)
--- NOTE | 2021-07-26 09:45 | P.PNPSI_ITS ---
Subjective Subjective Date of Service: 07/26/21 Reason For Visit: Bipolar disorder Interim History: last night pt moved back to [facility] last night due paranoid thoughts that peer on unit was a witch, struggles with roommate. Today patient says she is fine, not paranoid and not worried about any patients on unit. She says she feels ready to go home and will discuss this with treatment team next week. Mental Status Exam Mental Status Exam Narrative: Patient Appearance:?Appropriate Patient Orientation:?Person, Place, Time and Situation Level of Consciousness:?Alert Patient Behavior:?Talkative, Cooperative and Good Eye Contact Mood Description:?fine Affect Description:?calm Patient Cognition Impaired:?No Ability to Follow Directions:?Good Speech Pattern:?Appropriate and Spontaneous Speech Memory Description:?Episodic Impaired Hallucinations:?None Delusions:?denies Perceptual Disturbances:?Depersonalization and Derealization Thought Process:?goal oriented Thought Content:?no SI/HI Judgement/insight: impaired Diagnostics Vital Signs (24Hr): Vital Signs - 24 hr 07/25/21 17:25 07/26/21 06:00 Temperature 98.1 F 97.4 F Pulse Rate 96 76 Respiratory Rate 16 16 Blood Pressure 109/73 125/76 Pulse Oximetry 98 98 BMI result Body Mass Index 47.7 Labs Results: 07/18/21 14:12 07/18/21 14:12 Labs: Laboratory Results - last 48 hr 07/24/21 07/24/21 07/24/21 08:11 08:12 08:12 POC Glucose Estimat Average Glucose 111 Hemoglobin A1c % 5.5 Magnesium 2.1 Triglycerides 91 Cholesterol 144 LDL Cholesterol, Calc 79 HDL Cholesterol 47 Vitamin B12 612 Folate 11.4 TSH 0.64 Free T4 1.23 07/24/21 12:42 POC Glucose 117 H Estimat Average Glucose Hemoglobin A1c % Magnesium Triglycerides Cholesterol LDL Cholesterol, Calc HDL Cholesterol Vitamin B12 Folate TSH Free T4 Medications Medications Current Medications Acetaminophen (Acetaminophen 325 Mg Tablet) 650 mg PO Q6H PRN PRN Reason: Headache/Pain Mild Scale (1-3) Last Admin: 07/25/21 09:29 Dose: 650 mg Documented by: Al Hydroxide/Mg Hydroxide (Magnesium Hydrox/Alum Hydrox 30 Ml Oral.Susp) 30 ml PO Q6H PRN PRN Reason: Heartburn/Nausea Albuterol Sulfate (Albuterol Sulfate 90 Mcg 8 Gm Inhaler) 1 puff INHALE Q4H PRN PRN Reason: Shortness of Breath/Wheezing Last Admin: 07/24/21 16:16 Dose: 1 puff Documented by: Capsaicin (Capsaicin 0.025% Cream 60 Gm Tube) 1 appl TOPICAL TID PRN; Protocol PRN Reason: knee pain Docusate Sodium (Docusate Sodium 100 Mg Capsule) 100 mg PO BID [facility] Last Admin: 07/26/21 08:22 Dose: Not Given Documented by: Gabapentin (Gabapentin 600 Mg Tablet) 600 mg PO TID [facility] Last Admin: 07/26/21 08:20 Dose: 600 mg Documented by: Hydroxyzine HCl (Hydroxyzine Hcl 25 Mg Tablet) 25 mg PO BEDTIME PRN PRN Reason: Anxiety Last Admin: 07/25/21 00:00 Dose: 25 mg Documented by: Levothyroxine Sodium (Levothyroxine Sodium 75 Mcg Tablet) 75 mcg PO DAILY@0600 [facility] Last Admin: 07/26/21 05:43 Dose: 75 mcg Documented by: [place] Carbonate ([place] Carbonate 300 Mg Capsule) 600 mg PO BID [facility] Last Admin: 07/26/21 08:20 Dose: 600 mg Documented by: Loratadine (Loratadine 10 Mg Tablet) 10 mg PO DAILY [facility] Last Admin: 07/26/21 08:20 Dose: 10 mg Documented by: Magnesium Hydroxide (Milk Of Magnesia 30 Ml Oral.Susp) 30 ml PO DAILY PRN PRN Reason: Constipation Last Admin: 07/24/21 17:23 Dose: 30 ml Documented by: Olanzapine (Olanzapine 5 Mg Tablet) 5 mg PO Q6H PRN PRN Reason: agitation, psychosis Last Admin: 07/24/21 19:07 Dose: 5 mg Documented by: Quetiapine Fumarate (Quetiapine Fumarate 50 Mg Tablet) 50 mg PO BID PRN PRN Reason: agitation, anxiety Risperidone (Risperidone 1 Mg Tablet) 1 mg PO BID [facility] Last Admin: 07/26/21 08:20 Dose: 1 mg Documented by: Trazodone HCl (Trazodone Hcl 50 Mg Tablet) 50 mg PO BEDTIME PRN PRN Reason: Insomnia Last Admin: 07/25/21 01:19 Dose: 50 mg Documented by: Allergies Allergies Allergy/AdvReac Type Severity Reaction Status Date / Time latex [LATEX] Allergy Mild HIVES Verified 08/26/20 13:34 Assessment & Plan Assessment & Plan (1) PTSD (post-traumatic stress disorder): Status: Acute Code(s): F43.10 - Post-traumatic stress disorder, unspecified (2) Bipolar 1 disorder: Status: Acute Code(s): F31.9 - Bipolar disorder, unspecified Plan 40 yo female, history of bipolar disorder and PTSD, [place], making statements of suicidal intent, with paranoia and psychotic symptoms, aggressive agitation and unresponsiveness. Symptoms appear to be that of acute martine. Pt is accepting of medications, has retracted a three day notice of intent and is settling in to the unit, reporting today she feels safe and comfortable. She continues with disorganization at times, delusional content, congregation preoccupation and some paranoia. Plan: Continue current regime Collateral contact as indicated Observe and monitor. 07/25/21 Continue current regime. 07/26/21 Continue current regime. I spent minutes with the patient and/or on the patient floor today, greater than?50% of which was spent counseling/coordinating care. Reason for contiued inpatient stay Substantial Risk for: med/psych decompensation
[2021-07-26 20:50] VITALS: BP 143/86; PULSE 89; TEMP 36.6; O2SAT 99
[2021-07-26] MEDS: traZODone HCL 50 MG TABLET PO (21:39)
[2021-07-27] MEDS: traZODone HCL 50 MG TABLET PO (02:57)
[2021-07-27 06:00] VITALS: BP 115/58; PULSE 60; RESP 18; TEMP 36; O2SAT 99
[2021-07-27] MEDS: Levothyroxine Sodium 75 MCG TABLET PO (06:39)
[2021-07-27] MEDS: Loratadine 10 MG TABLET PO (08:16)
[2021-07-27] MEDS: Gabapentin 600 MG TABLET PO ×3 (08:16→20:47)
[2021-07-27] MEDS: Lithium Carbonate 300 MG CAPSULE 600 MG PO ×2 (08:16→20:48)
[2021-07-27] MEDS: risperiDONE 1 MG TABLET PO ×2 (08:16→20:48)
--- NOTE | 2021-07-27 13:51 | P.PNPSI_ITS ---
Subjective Subjective Date of Service: 07/27/21 Reason For Visit: Bipolar disorder Interim History: Patient walking in the [place]. She is friendly and cooperative. She says she is doing fine. Patient asks if she had a thyroid test and would like to know the results. She otherwise denies any SI, HI or AVH Mental Status Exam Mental Status Exam Narrative: Patient Appearance:?Appropriate Patient Orientation:?Person, Place, Time and Situation Level of Consciousness:?Alert Patient Behavior:?Talkative, Cooperative and Good Eye Contact Mood Description:? i'm fine Affect Description:?calm Patient Cognition Impaired:?No Ability to Follow Directions:?Good Speech Pattern:?Appropriate and Spontaneous Speech Memory Description:?Episodic Impaired Hallucinations:?None Delusions:?denies Perceptual Disturbances: hx of?Depersonalization and Derealization Thought Process:?goal oriented Thought Content:?no SI/HI Judgement/insight: fair Diagnostics Vital Signs (24Hr): Vital Signs - 24 hr 07/26/21 20:50 07/27/21 06:00 Temperature 97.9 F 96.8 F Pulse Rate 89 60 Respiratory Rate 18 Blood Pressure 143/86 H 115/58 L Pulse Oximetry 99 99 BMI result Body Mass Index 47.7 Labs Results: 07/18/21 14:12 07/18/21 14:12 Medications Medications Current Medications Acetaminophen (Acetaminophen 325 Mg Tablet) 650 mg PO Q6H PRN PRN Reason: Headache/Pain Mild Scale (1-3) Last Admin: 07/25/21 09:29 Dose: 650 mg Documented by: Al Hydroxide/Mg Hydroxide (Magnesium Hydrox/Alum Hydrox 30 Ml Oral.Susp) 30 ml PO Q6H PRN PRN Reason: Heartburn/Nausea Albuterol Sulfate (Albuterol Sulfate 90 Mcg 8 Gm Inhaler) 1 puff INHALE Q4H PRN PRN Reason: Shortness of Breath/Wheezing Last Admin: 07/24/21 16:16 Dose: 1 puff Documented by: Capsaicin (Capsaicin 0.025% Cream 60 Gm Tube) 1 appl TOPICAL TID PRN; Protocol PRN Reason: knee pain Docusate Sodium (Docusate Sodium 100 Mg Capsule) 100 mg PO BID [facility] Last Admin: 07/27/21 08:16 Dose: Not Given Documented by: Gabapentin (Gabapentin 600 Mg Tablet) 600 mg PO TID [facility] Last Admin: 07/27/21 08:16 Dose: 600 mg Documented by: Hydroxyzine HCl (Hydroxyzine Hcl 25 Mg Tablet) 25 mg PO BEDTIME PRN PRN Reason: Anxiety Last Admin: 07/25/21 00:00 Dose: 25 mg Documented by: Levothyroxine Sodium (Levothyroxine Sodium 75 Mcg Tablet) 75 mcg PO DAILY@0600 [facility] Last Admin: 07/27/21 06:39 Dose: 75 mcg Documented by: [place] Carbonate ([place] Carbonate 300 Mg Capsule) 600 mg PO BID [facility] Last Admin: 07/27/21 08:16 Dose: 600 mg Documented by: Loratadine (Loratadine 10 Mg Tablet) 10 mg PO DAILY [facility] Last Admin: 07/27/21 08:16 Dose: 10 mg Documented by: Magnesium Hydroxide (Milk Of Magnesia 30 Ml Oral.Susp) 30 ml PO DAILY PRN PRN Reason: Constipation Last Admin: 07/24/21 17:23 Dose: 30 ml Documented by: Olanzapine (Olanzapine 5 Mg Tablet) 5 mg PO Q6H PRN PRN Reason: agitation, psychosis Last Admin: 07/24/21 19:07 Dose: 5 mg Documented by: Quetiapine Fumarate (Quetiapine Fumarate 50 Mg Tablet) 50 mg PO BID PRN PRN Reason: agitation, anxiety Risperidone (Risperidone 1 Mg Tablet) 1 mg PO BID [facility] Last Admin: 07/27/21 08:16 Dose: 1 mg Documented by: Trazodone HCl (Trazodone Hcl 50 Mg Tablet) 50 mg PO BEDTIME PRN PRN Reason: Insomnia Last Admin: 07/27/21 02:57 Dose: 50 mg Documented by: Allergies Allergies Allergy/AdvReac Type Severity Reaction Status Date / Time latex [LATEX] Allergy Mild HIVES Verified 08/26/20 13:34 Assessment & Plan Assessment & Plan (1) PTSD (post-traumatic stress disorder): Status: Acute Code(s): F43.10 - Post-traumatic stress disorder, unspecified (2) Bipolar 1 disorder: Status: Acute Code(s): F31.9 - Bipolar disorder, unspecified Plan 40 yo female, history of bipolar disorder and PTSD, [place] the train [place], making statements of suicidal intent, with paranoia and psychotic symptoms, aggressive agitation and unresponsiveness. Symptoms appear to be that of acute martine. Pt is accepting of medications, has retracted a three day notice of intent and is settling in to the unit, reporting today she feels safe and comfortable. She continues with disorganization at times, delusional content, spiritism preoccupation and some paranoia. Plan: Continue current regime Collateral contact as indicated Observe and monitor. 07/25/21 Continue current regime. 07/26/21 Continue current regime. 07/27/21 Continue current regime. -patient wanted to know results of TSH/thyroid test which are WNL I spent minutes with the patient and/or on the patient floor today, greater than?50% of which was spent counseling/coordinating care. Reason for contiued inpatient stay Substantial Risk for: med/psych decompensation
[2021-07-27] MEDS: Acetaminophen 325 MG TABLET 650 MG PO (15:32)
[2021-07-27 18:00] VITALS: BP 146/91; PULSE 80; RESP 16; TEMP 36.8; O2SAT 100
[2021-07-28] MEDS: traZODone HCL 50 MG TABLET PO (02:16)
[2021-07-28 06:00] VITALS: BP 121/59; PULSE 61; RESP 18; TEMP 36.3; O2SAT 99
[2021-07-28] MEDS: Levothyroxine Sodium 75 MCG TABLET PO (06:30)
[2021-07-28] MEDS: risperiDONE 1 MG TABLET PO ×2 (08:03→21:13)
[2021-07-28] MEDS: Loratadine 10 MG TABLET PO (08:03)
[2021-07-28] MEDS: Lithium Carbonate 300 MG CAPSULE 600 MG PO ×2 (08:03→21:12)
[2021-07-28] MEDS: Gabapentin 600 MG TABLET PO ×3 (08:03→21:13)
--- NOTE | 2021-07-28 16:40 | P.PNPSI_ITS ---
Subjective Subjective Date of Service: 07/28/21 Reason For Visit: Bipolar disorder Interim History: Ledy is talking about discharge. She discussed her sleep and states that she regularly awakens to pray at 2:30-3am then returns to sleep. She discussed feeling improved on medications, denies SE, is willing to work with [facility] and [facility] to help with her dosing of medicine. Discussed a tentative date of 07/30. Medication Compliance: Yes Side effects from medications: No Attending Groups: Yes Review of Systems Acute medical concerns: No Medical Review of Systems: unchanged Review of Systems Psychiatric: Reports anxiety Mental Status Exam Mental Status Exam Patient Appearance: Appropriate Patient Orientation: Person, Place, Time and Situation Level of Consciousness: Alert Patient Behavior: Appropriate, Talkative, Cooperative, Anxious, Distractible and Good Eye Contact Mood Description: Cheerful and Anxious Affect Description: Anxious Patient Cognition Impaired: No Ability to Follow Directions: Good Speech Pattern: Spontaneous Speech Memory Description: Episodic Impaired Hallucinations: None Delusions: Not Present Thought Process: Distracted and Goal Oriented Thought Content: positive for [place], positive for Circumstantial, positive for Suicidal Ideation (denies) and positive for Homicidal Ideation (denies) Depressive Symptoms: Increased Anxiety and Thoughts of /Suicide (denies) Judgement: Fair Diagnostics Vital Signs (24Hr): Vital Signs - 24 hr 07/27/21 18:00 07/28/21 06:00 Temperature 98.3 F 97.3 F Pulse Rate 80 61 Respiratory Rate 16 18 Blood Pressure 146/91 H 121/59 L Pulse Oximetry 100 99 BMI result Body Mass Index 47.7 Labs Results: 07/18/21 14:12 07/18/21 14:12 Medications Medications Current Medications Acetaminophen (Acetaminophen 325 Mg Tablet) 650 mg PO Q6H PRN PRN Reason: Headache/Pain Mild Scale (1-3) Last Admin: 07/27/21 15:32 Dose: 650 mg Documented by: Al Hydroxide/Mg Hydroxide (Magnesium Hydrox/Alum Hydrox 30 Ml Oral.Susp) 30 ml PO Q6H PRN PRN Reason: Heartburn/Nausea Albuterol Sulfate (Albuterol Sulfate 90 Mcg 8 Gm Inhaler) 1 puff INHALE Q4H PRN PRN Reason: Shortness of Breath/Wheezing Last Admin: 07/24/21 16:16 Dose: 1 puff Documented by: Capsaicin (Capsaicin 0.025% Cream 60 Gm Tube) 1 appl TOPICAL TID PRN; Protocol PRN Reason: knee pain Docusate Sodium (Docusate Sodium 100 Mg Capsule) 100 mg PO BID [facility] Last Admin: 07/28/21 08:05 Dose: Not Given Documented by: Gabapentin (Gabapentin 600 Mg Tablet) 600 mg PO TID [facility] Last Admin: 07/28/21 14:01 Dose: 600 mg Documented by: Hydroxyzine HCl (Hydroxyzine Hcl 25 Mg Tablet) 25 mg PO BEDTIME PRN PRN Reason: Anxiety Last Admin: 07/25/21 00:00 Dose: 25 mg Documented by: Levothyroxine Sodium (Levothyroxine Sodium 75 Mcg Tablet) 75 mcg PO DAILY@0600 [facility] Last Admin: 07/28/21 06:30 Dose: 75 mcg Documented by: [place] Carbonate ([place] Carbonate 300 Mg Capsule) 600 mg PO BID [facility] Last Admin: 07/28/21 08:03 Dose: 600 mg Documented by: Loratadine (Loratadine 10 Mg Tablet) 10 mg PO DAILY [facility] Last Admin: 07/28/21 08:03 Dose: 10 mg Documented by: Magnesium Hydroxide (Milk Of Magnesia 30 Ml Oral.Susp) 30 ml PO DAILY PRN PRN Reason: Constipation Last Admin: 07/24/21 17:23 Dose: 30 ml Documented by: Olanzapine (Olanzapine 5 Mg Tablet) 5 mg PO Q6H PRN PRN Reason: agitation, psychosis Last Admin: 07/24/21 19:07 Dose: 5 mg Documented by: Quetiapine Fumarate (Quetiapine Fumarate 50 Mg Tablet) 50 mg PO BID PRN PRN Reason: agitation, anxiety Risperidone (Risperidone 1 Mg Tablet) 1 mg PO BID [facility] Last Admin: 07/28/21 08:03 Dose: 1 mg Documented by: Trazodone HCl (Trazodone Hcl 50 Mg Tablet) 50 mg PO BEDTIME PRN PRN Reason: Insomnia Last Admin: 07/28/21 02:16 Dose: 50 mg Documented by: Allergies Allergies Allergy/AdvReac Type Severity Reaction Status Date / Time latex [LATEX] Allergy Mild HIVES Verified 08/26/20 13:34 Assessment & Plan Assessment & Plan (1) PTSD (post-traumatic stress disorder): Status: Acute Code(s): F43.10 - Post-traumatic stress disorder, unspecified (2) Bipolar 1 disorder: Status: Acute Code(s): F31.9 - Bipolar disorder, unspecified Plan 40 yo female, history of bipolar disorder and PTSD, [place], making statements of suicidal intent, with paranoia and psychotic symptoms, aggressive agitation and unresponsiveness. Symptoms appear to be that of acute martine. Pt is accepting of medications, has retracted a three day notice of intent and is settling in to the unit, reporting today she feels safe and comfortable. She continues with disorganization at times, delusional content, taoist preoccupation and some paranoia. Plan: Continue current regime Collateral contact as indicated Observe and monitor. 07/25/21 Continue current regime. 07/26/21 Continue current regime. 07/27/21 Continue current regime. -patient wanted to know results of TSH/thyroid test which are WNL 07/28/21- No changes today. Reports she is doing well. Tentative discharge 07/30/21. I spent minutes with the patient and/or on the patient floor today, greater than?50% of which was spent counseling/coordinating care. Patient educated on: medication risk/benefits and therapeutic strategies Informed Consent: understands and further education needed Reason for contiued inpatient stay Substantial Risk for: harm to self, harm to others, inability to function and rapid decompensation
[2021-07-28 17:30] VITALS: BP 108/67; PULSE 83; TEMP 36.5
[2021-07-28] MEDS: QUEtiapine Fumarate 50 MG TABLET PO (21:16)
[2021-07-29] MEDS: Acetaminophen 325 MG TABLET 650 MG PO ×3 (03:13→16:42)
[2021-07-29 05:44] VITALS: BP 108/63; PULSE 79; RESP 17; TEMP 36.1; O2SAT 98
[2021-07-29] MEDS: Levothyroxine Sodium 75 MCG TABLET PO (05:45)
[2021-07-29] MEDS: Gabapentin 600 MG TABLET PO ×3 (08:24→20:32)
[2021-07-29] MEDS: Loratadine 10 MG TABLET PO (08:24)
[2021-07-29] MEDS: Lithium Carbonate 300 MG CAPSULE 600 MG PO ×2 (08:24→20:32)
[2021-07-29] MEDS: risperiDONE 1 MG TABLET PO (08:24)
--- NOTE | 2021-07-29 14:52 | HO.PSYCHPN ---
Subjective Subjective Date of Service: 07/29/21 Reason For Visit: Bipolar disorder Subjective Notes: Conditional Voluntary Healthcare Proxy: No Guardianship: No Medical Problems Affecting Mental Status: No Interim History: Team reports Ledy has experienced some breakthrough sx of psychosis. Met with pt and Handy [id number] to review. Discussed with pt sleep, sx. She agrees to increase in Risperdal. Review of sleep pattern. Reports she awakens each day at 2:30-3am, prays and returns to sleep. Discussed postponing discharge until possibly 08/01 which she is in agreement with so we may monitor her response to medication increase. Medication Compliance: Yes Side effects from medications: No Attending Groups: Yes Review of Systems Acute medical concerns: No Medical Review of Systems: unchanged Review of Systems Reports behavioral changes Psychiatric: Reports abnormal sleep pattern, Reports behavioral changes, Reports auditory hallucinations, Reports paranoia, Reports homicidal ideation (denies) and Reports suicidal ideation (denies) Mental Status Exam Mental Status Exam Patient Appearance: Appropriate Patient Orientation: Person, Place, Time and Situation Level of Consciousness: Alert Patient Behavior: Appropriate, Talkative, Cooperative, Anxious, Distractible and Good Eye Contact Mood Description: Cheerful and Anxious Affect Description: Anxious Patient Cognition Impaired: No Ability to Follow Directions: Good Speech Pattern: Spontaneous Speech Memory Description: Episodic Impaired Hallucinations: None Delusions: Not Present Thought Process: Distracted and Goal Oriented Thought Content: positive for [place], positive for Circumstantial, positive for Suicidal Ideation (denies) and positive for Homicidal Ideation (denies) Depressive Symptoms: Increased Anxiety and Thoughts of /Suicide (denies) Judgement: Fair Diagnostics Vital Signs (24Hr): Vital Signs - 24 hr 07/28/21 17:30 07/29/21 05:44 Temperature 97.7 F 97 F Pulse Rate 83 79 Respiratory Rate 17 Blood Pressure 108/67 108/63 Pulse Oximetry 98 BMI result Body Mass Index 47.7 Labs Results: 07/18/21 14:12 07/18/21 14:12 Medications Medications Current Medications Acetaminophen (Acetaminophen 325 Mg Tablet) 650 mg PO Q6H PRN PRN Reason: Headache/Pain Mild Scale (1-3) Last Admin: 07/29/21 09:50 Dose: 650 mg Documented by: Al Hydroxide/Mg Hydroxide (Magnesium Hydrox/Alum Hydrox 30 Ml Oral.Susp) 30 ml PO Q6H PRN PRN Reason: Heartburn/Nausea Albuterol Sulfate (Albuterol Sulfate 90 Mcg 8 Gm Inhaler) 1 puff INHALE Q4H PRN PRN Reason: Shortness of Breath/Wheezing Last Admin: 07/24/21 16:16 Dose: 1 puff Documented by: Capsaicin (Capsaicin 0.025% Cream 60 Gm Tube) 1 appl TOPICAL TID PRN; Protocol PRN Reason: knee pain Docusate Sodium (Docusate Sodium 100 Mg Capsule) 100 mg PO BID [facility] Last Admin: 07/29/21 08:24 Dose: Not Given Documented by: Gabapentin (Gabapentin 600 Mg Tablet) 600 mg PO TID [facility] Last Admin: 07/29/21 14:03 Dose: 600 mg Documented by: Hydroxyzine HCl (Hydroxyzine Hcl 25 Mg Tablet) 25 mg PO BEDTIME PRN PRN Reason: Anxiety Last Admin: 07/25/21 00:00 Dose: 25 mg Documented by: Levothyroxine Sodium (Levothyroxine Sodium 75 Mcg Tablet) 75 mcg PO DAILY@0600 [facility] Last Admin: 07/29/21 05:45 Dose: 75 mcg Documented by: [place] Carbonate ([place] Carbonate 300 Mg Capsule) 600 mg PO BID [facility] Last Admin: 07/29/21 08:24 Dose: 600 mg Documented by: Loratadine (Loratadine 10 Mg Tablet) 10 mg PO DAILY [facility] Last Admin: 07/29/21 08:24 Dose: 10 mg Documented by: Magnesium Hydroxide (Milk Of Magnesia 30 Ml Oral.Susp) 30 ml PO DAILY PRN PRN Reason: Constipation Last Admin: 07/24/21 17:23 Dose: 30 ml Documented by: Olanzapine (Olanzapine 5 Mg Tablet) 5 mg PO Q6H PRN PRN Reason: agitation, psychosis Last Admin: 07/24/21 19:07 Dose: 5 mg Documented by: Quetiapine Fumarate (Quetiapine Fumarate 50 Mg Tablet) 50 mg PO BID PRN PRN Reason: agitation, anxiety Last Admin: 07/28/21 21:16 Dose: 50 mg Documented by: Risperidone (Risperidone 2 Mg Tablet) 2 mg PO BID [facility] Trazodone HCl (Trazodone Hcl 50 Mg Tablet) 50 mg PO BEDTIME PRN PRN Reason: Insomnia Last Admin: 07/28/21 02:16 Dose: 50 mg Documented by: Allergies Allergies Allergy/AdvReac Type Severity Reaction Status Date / Time latex [LATEX] Allergy Mild HIVES Verified 08/26/20 13:34 Assessment & Plan Assessment & Plan (1) PTSD (post-traumatic stress disorder): Status: Acute Code(s): F43.10 - Post-traumatic stress disorder, unspecified (2) Bipolar 1 disorder: Status: Acute Code(s): F31.9 - Bipolar disorder, unspecified Plan 40 yo female, history of bipolar disorder and PTSD, [place] the train [place], making statements of suicidal intent, with paranoia and psychotic symptoms, aggressive agitation and unresponsiveness. Symptoms appear to be that of acute martine. Pt is accepting of medications, has retracted a three day notice of intent and is settling in to the unit, reporting today she feels safe and comfortable. She continues with disorganization at times, delusional content, baptism preoccupation and some paranoia. Plan: Continue current regime Collateral contact as indicated Observe and monitor. 07/25/21 Continue current regime. 07/26/21 Continue current regime. 07/27/21 Continue current regime. -patient wanted to know results of TSH/thyroid test which are WNL 07/29/21 Increase Risperdal to 2 mg bid I spent minutes with the patient and/or on the patient floor today, greater than?50% of which was spent counseling/coordinating care. Patient educated on: medication risk/benefits Informed Consent: understands and further education needed Reason for contiued inpatient stay Substantial Risk for: harm to self, harm to others, inability to function and rapid decompensation
[2021-07-29 16:40] VITALS: BP 111/61; PULSE 101; TEMP 36.1
[2021-07-29] MEDS: risperiDONE 2 MG TABLET PO (20:32)
[2021-07-29] MEDS: Docusate Sodium 100 MG CAPSULE PO (20:33)
[2021-07-29] MEDS: QUEtiapine Fumarate 50 MG TABLET PO (20:36)
[2021-07-29] MEDS: traZODone HCL 50 MG TABLET PO (23:26)
[2021-07-30] MEDS: QUEtiapine Fumarate 50 MG TABLET PO ×2 (03:52→20:59)
[2021-07-30] MEDS: Levothyroxine Sodium 75 MCG TABLET PO (03:52)
[2021-07-30] MEDS: Gabapentin 600 MG TABLET PO ×3 (07:49→20:59)
[2021-07-30] MEDS: risperiDONE 2 MG TABLET PO ×2 (07:49→21:02)
[2021-07-30] MEDS: Docusate Sodium 100 MG CAPSULE PO (07:50)
[2021-07-30] MEDS: Lithium Carbonate 300 MG CAPSULE 600 MG PO ×2 (07:50→21:00)
[2021-07-30] MEDS: Loratadine 10 MG TABLET PO (07:50)
[2021-07-30 07:51] VITALS: BP 107/65; PULSE 85; RESP 18; TEMP 36.6; O2SAT 98
--- NOTE | 2021-07-30 18:06 | HO.PSYCHPN ---
Subjective Subjective Date of Service: 07/30/21 Reason For Visit: Bipolar disorder Subjective Notes: Conditional Voluntary Healthcare Proxy: No Guardianship: No Medical Problems Affecting Mental Status: No Interim History: Tolerating recent medication increase. Participating in [employer]. States she has initited a painting in group today that she will display in her home. Denies medication SE. Medication Compliance: Yes Side effects from medications: No Attending Groups: Yes Review of Systems Acute medical concerns: No Medical Review of Systems: unchanged Review of Systems Psychiatric: Reports no additional psychiatric complaints Mental Status Exam Mental Status Exam Patient Appearance: Appropriate Patient Orientation: Person, Place, Time and Situation Level of Consciousness: Alert Patient Behavior: Appropriate, Talkative, Cooperative, Anxious, Distractible and Good Eye Contact Mood Description: Cheerful and Anxious Affect Description: Anxious Patient Cognition Impaired: No Ability to Follow Directions: Good Speech Pattern: Spontaneous Speech Memory Description: Episodic Impaired Hallucinations: None Delusions: Not Present Thought Process: Distracted and Goal Oriented Thought Content: positive for [place], positive for Circumstantial, positive for Suicidal Ideation (denies) and positive for Homicidal Ideation (denies) Depressive Symptoms: Increased Anxiety and Thoughts of /Suicide (denies) Judgement: Fair Diagnostics Vital Signs (24Hr): Vital Signs - 24 hr 07/30/21 07:51 Temperature 97.8 F Pulse Rate 85 Respiratory Rate 18 Blood Pressure 107/65 Pulse Oximetry 98 BMI result Body Mass Index 47.7 Labs Results: 07/18/21 14:12 07/18/21 14:12 Labs: Laboratory Results - last 48 hr 07/18/21 07/18/21 07/18/21 14:12 14:12 14:12 WBC 12.4 H Sodium 141 Ethyl Alcohol < 10 Medications Medications Current Medications Acetaminophen (Acetaminophen 325 Mg Tablet) 650 mg PO Q6H PRN PRN Reason: Headache/Pain Mild Scale (1-3) Last Admin: 07/29/21 16:42 Dose: 650 mg Documented by: Al Hydroxide/Mg Hydroxide (Magnesium Hydrox/Alum Hydrox 30 Ml Oral.Susp) 30 ml PO Q6H PRN PRN Reason: Heartburn/Nausea Albuterol Sulfate (Albuterol Sulfate 90 Mcg 8 Gm Inhaler) 1 puff INHALE Q4H PRN PRN Reason: Shortness of Breath/Wheezing Last Admin: 07/24/21 16:16 Dose: 1 puff Documented by: Capsaicin (Capsaicin 0.025% Cream 60 Gm Tube) 1 appl TOPICAL TID PRN; Protocol PRN Reason: knee pain Docusate Sodium (Docusate Sodium 100 Mg Capsule) 100 mg PO BID [facility] Last Admin: 07/30/21 07:50 Dose: 100 mg Documented by: Gabapentin (Gabapentin 600 Mg Tablet) 600 mg PO TID [facility] Last Admin: 07/30/21 14:39 Dose: 600 mg Documented by: Hydroxyzine HCl (Hydroxyzine Hcl 25 Mg Tablet) 25 mg PO BEDTIME PRN PRN Reason: Anxiety Last Admin: 07/25/21 00:00 Dose: 25 mg Documented by: Levothyroxine Sodium (Levothyroxine Sodium 75 Mcg Tablet) 75 mcg PO DAILY@0600 [facility] Last Admin: 07/30/21 03:52 Dose: 75 mcg Documented by: [place] Carbonate ([place] Carbonate 300 Mg Capsule) 600 mg PO BID [facility] Last Admin: 07/30/21 07:50 Dose: 600 mg Documented by: Loratadine (Loratadine 10 Mg Tablet) 10 mg PO DAILY [facility] Last Admin: 07/30/21 07:50 Dose: 10 mg Documented by: Magnesium Hydroxide (Milk Of Magnesia 30 Ml Oral.Susp) 30 ml PO DAILY PRN PRN Reason: Constipation Last Admin: 07/24/21 17:23 Dose: 30 ml Documented by: Olanzapine (Olanzapine 5 Mg Tablet) 5 mg PO Q6H PRN PRN Reason: agitation, psychosis Last Admin: 07/24/21 19:07 Dose: 5 mg Documented by: Quetiapine Fumarate (Quetiapine Fumarate 50 Mg Tablet) 50 mg PO BID PRN PRN Reason: agitation, anxiety Last Admin: 07/30/21 03:52 Dose: 50 mg Documented by: Risperidone (Risperidone 2 Mg Tablet) 2 mg PO BID [facility] Last Admin: 07/30/21 07:49 Dose: 2 mg Documented by: Trazodone HCl (Trazodone Hcl 50 Mg Tablet) 50 mg PO BEDTIME PRN PRN Reason: Insomnia Last Admin: 07/29/21 23:26 Dose: 50 mg Documented by: Allergies Allergies Allergy/AdvReac Type Severity Reaction Status Date / Time latex [LATEX] Allergy Mild HIVES Verified 08/26/20 13:34 Assessment & Plan Assessment & Plan (1) PTSD (post-traumatic stress disorder): Status: Acute Code(s): F43.10 - Post-traumatic stress disorder, unspecified (2) Bipolar 1 disorder: Status: Acute Code(s): F31.9 - Bipolar disorder, unspecified Plan 40 yo female, history of bipolar disorder and PTSD[place], making statements of suicidal intent, with paranoia and psychotic symptoms, aggressive agitation and unresponsiveness. Symptoms appear to be that of acute martine. Pt is accepting of medications, has retracted a three day notice of intent and is settling in to the unit, reporting today she feels safe and comfortable. She continues with disorganization at times, delusional content, anglican preoccupation and some paranoia. Plan: Continue current regime Collateral contact as indicated Observe and monitor. 07/25/21 Continue current regime. 07/26/21 Continue current regime. 07/27/21 Continue current regime. -patient wanted to know results of TSH/thyroid test which are WNL 07/29/21 Increase Risperdal to 2 mg bid 07/30/21 Continue current plan-tentative discharge on 08/01/21. I spent minutes with the patient and/or on the patient floor today, greater than?50% of which was spent counseling/coordinating care. Patient educated on: medication risk/benefits and therapeutic strategies Informed Consent: understands Reason for contiued inpatient stay Substantial Risk for: harm to self, harm to others, inability to function and rapid decompensation
[2021-07-30 21:05] VITALS: BP 122/60; PULSE 90; TEMP 36.3; O2SAT 99
[2021-07-31] MEDS: Acetaminophen 325 MG TABLET 650 MG PO ×2 (02:48→09:05)
[2021-07-31] MEDS: Capsaicin 0.025% Cream 60 GM TUBE 1 APPL TOPICAL (02:50)
[2021-07-31] MEDS: QUEtiapine Fumarate 50 MG TABLET PO (03:53)
[2021-07-31 06:00] VITALS: BP 131/84; PULSE 104; RESP 18; TEMP 36.6; O2SAT 97
[2021-07-31] MEDS: Levothyroxine Sodium 75 MCG TABLET PO (06:07)
[2021-07-31 07:00] VITALS: BMI 50.2
[2021-07-31] MEDS: Loratadine 10 MG TABLET PO (07:59)
[2021-07-31] MEDS: risperiDONE 2 MG TABLET PO (07:59)
[2021-07-31] MEDS: Lithium Carbonate 300 MG CAPSULE 600 MG PO (07:59)
[2021-07-31] MEDS: Gabapentin 600 MG TABLET PO (07:59)
[2021-07-31] MEDS: Magnesium Hydrox/Alum Hydrox 30 ML ORAL.SUSP PO (09:47)
--- NOTE | 2021-08-08 10:18 | P.DS_ITS ---
DS: Providers Provider Date of Service: 07/31/21 Date of admission: 07/23/21 16:47 Date of discharge: 07/31/21 Primary care physician: Unknown Physician Admitting clinician: Nadege Nj Attending physician on admission: Nadege Nj Attending physician on discharge: Nadege Nj Discharging clinician: Nadege Nj DS: Medications Discharge Medications Home Medications: Home Medications Medication Instructions Recorded Confirmed cetirizine 10 mg tablet 1 tab PO DAILY 04/17/21 07/18/21 albuterol sulfate 90 mcg/actuation 1 puff INHALATION Q3-4H 07/18/21 07/18/21 aerosol inhaler (Ventolin HFA) gabapentin 600 mg tablet 1 tab PO TID 07/18/21 07/18/21 levothyroxine 75 mcg tablet 1 tab PO DAILY 07/18/21 07/18/21 lithium carbonate 600 mg capsule 1 cap PO BID 07/18/21 07/18/21 Previous Rx's Medication Instructions Recorded benztropine 0.5 mg tablet 0.5 mg PO BID #60 tab 07/31/21 capsaicin 0.025 % topical cream 1 appl TOPICAL TID PRN #10 g 07/31/21 docusate sodium 100 mg capsule 100 mg PO BID #60 cap 07/31/21 lithium carbonate 600 mg capsule 600 mg PO BID #60 cap 07/31/21 quetiapine 50 mg tablet (Seroquel) 50 mg PO BID PRN #60 tab 07/31/21 risperidone 2 mg tablet 2 mg PO BID #60 tab 07/31/21 trazodone 50 mg tablet 50 mg PO BEDTIME PRN #30 tab 07/31/21 Mental Status Exam Mental Status Exam Patient Appearance: Appropriate Patient Orientation: Person, Place, Time and Situation Level of Consciousness: Alert Patient Behavior: Appropriate, Talkative, Cooperative, Anxious, Distractible and Good Eye Contact Mood Description: Cheerful and Anxious Affect Description: Anxious Patient Cognition Impaired: No Ability to Follow Directions: Good Speech Pattern: Spontaneous Speech Memory Description: Episodic Impaired Hallucinations: None Delusions: Not Present Thought Process: Distracted and Goal Oriented Thought Content: positive for [place], positive for Circumstantial, positive for Suicidal Ideation (denies) and positive for Homicidal Ideation (denies) Depressive Symptoms: Increased Anxiety and Thoughts of /Suicide (denies) Judgement: Fair DS: Summary Hospital Course Hospital Course: Admission to adult psychiatry to address symptoms of bipolar disorder, PTSD and suicidal ideation. Care plan, medication regime and out patient plan of care prior to admission were reviewed. Education was provided regarding management of symptoms, medications and side effects. Nursing and social service worked with Ledy on care planning, education regarding management of symptoms, medications and discharge planning. Symptoms were stabilized using [place], Seroquel, Risperdal, Gabapentin, Trazodone and Benztropine. Time spent discussing smoking cessation with patient: 3 to 10 minutes Status at Discharge Functional status at discharge: independent ambulation Overall status at discharge: patient is progressing back to baseline Time Spent with Patient Time attestation: Total time spent providing and/or coordinating discharge services: 35 Time spent: Greater than 30 minutes Discharge Plan Discharge Patient Disposition: Home, Self-Care Discharge Diagnosis: Bipolar Disorder, Type I PTSD Referrals: Kalee Garcia [Other] - 08/04/21 1:00 pm (Initial Diagnostic Evaluation for Therapy. Appointment in Office) Amanda Cabezas [Other] - 08/26/21 3:30 pm (Appointment for Initial Psychiatric evaluation Appointment is by tele-health. Patient must check email for link to appointment. Should you have questions contact [facility].) Amanda Cabezas [Other] - 09/23/21 1:15 pm (Appointment for medication management. Appointment is by tele-health. Patient must check email for link to appointment. Should you have questions contact [facility].) OMAR DEWITT VISITING RN [Other] - 08/01/21 Dr. Duarte [Other] - 08/07/21 4:00 pm Discharge Medications: New risperidone 2 mg Tablet 2 mg PO BID Qty: 60 0RF docusate sodium 100 mg Capsule 100 mg PO BID Qty: 60 0RF capsaicin 0.025 % Cream 1 appl topical TID PRN (Reason: knee pain) Qty: 10 0RF Protocol: Apply to: Apply to: knees benztropine 0.5 mg tablet 0.5 mg PO BID Qty: 60 0RF lithium carbonate 600 mg capsule 600 mg PO BID Qty: 60 0RF trazodone 50 mg tablet 50 mg PO BEDTIME PRN (Reason: insomnia) Qty: 30 0RF quetiapine [Seroquel] 50 mg tablet 50 mg PO BID PRN (Reason: anxiety) Qty: 60 0RF Continued cetirizine 10 mg tablet 1 tab PO DAILY 0RF gabapentin 600 mg tablet 1 tab PO TID 0RF levothyroxine 75 mcg tablet 1 tab PO DAILY 0RF albuterol sulfate [Ventolin HFA] 90 mcg/actuation HFA aerosol inhaler 1 puff inhalation Q3-4H 0RF lithium carbonate 600 mg capsule 1 cap PO BID 0RF Discontinued risperidone 1 mg tablet 1 tab PO BID 0RF Discharge Orders: Discharge Order (Routine); Ordered 07/31/21 Ordered By: Nadege Nj Diet: advance to usual diet Activity on Discharge: As tolerated Stand Alone Forms: Patient Portal Discharge page, Community Support Care Plan Goals: Mood stabilization Health Concerns: Bipolar Disorder PTSD Plan of Treatment: Attend scheduled appointments Take medications as directed Call/return as needed Crisis Team may be reached at [phone] Assessment: non-suicidal non-psychotic Discharge Date/Time: 07/31/21 14:13
== END 2021-07-31 14:13 | disposition home or self-care (01) | DRG 885 ==
LOC: HO.ED 07-23 08:59 → HO.PM5 07-23 16:51
PROVIDERS: Nurse Practitioner Family; Physician Assistant; Admitting Provider Psychiatry & Neurology Psychiatry; Emergency Provider Emergency Medicine; Visit Provider Clinical Nurse Specialist Psychiatric/Mental Health, Adult
DX: F31.9 Bipolar disorder, unspecified (principal); R45.851 Suicidal ideations; F43.10 Post-traumatic stress disorder, unspecified; M79.7 Fibromyalgia; Z20.822 Contact with and (suspected) exposure to COVID-19; Z91.040 Latex allergy status; Z79.890 Hormone replacement therapy; Z79.899 Other long term (current) drug therapy
CPT/HCPCS: 36415; 80048; 80061; 80076; 80178; 80307; 81001; 81025; 82077; 82550; 82607; 82746; 82947; 83036; 83735; 84439; 84443; 85025; 87635; 93005; 96372; 99285; J1200; J2060

== ENCOUNTER 2022-05-04 08:08 | Outpatient (REF) | payer OTHER, SELFPAY ==
[2022-05-04 08:58] LABS: Anion Gap 13 (12-20); Blood Urea Nitrogen 6 mg/dL (9-16); Calcium 9.4 mg/dL (8.4-10.2); Carbon Dioxide 23 mmol/L (22-29); Chloride 107 mmol/L (96-108); Cholesterol 148 mg/dL; Estimated Glomerular Filt Rate > 60; Glucose Random 107 mg/dL (60-115); HDL Cholesterol 48 mg/dL; LDL Cholesterol Calculated 83 mg/dl; Potassium 4.3 mmol/L (3.3-5.1); Sodium 139 mmol/L (135-145); Triglycerides 89 mg/dL
[2022-05-04 09:04] LABS: Lithium 0.88 mmol/L (0.60-1.20)
[2022-05-04 09:12] LABS: Thyroid Stimulating Hormone 1.96 uIU/mL (0.32-4.0)
== END 2022-05-04 08:09 | disposition home or self-care (01) ==
LOC: HO.LAB 08:08
PROVIDERS: PCP Internal Medicine; Visit Provider Psychiatry & Neurology Psychiatry
DX: Z79.899 Other long term (current) drug therapy (principal)
CPT/HCPCS: 36415; 80048; 80061; 80178; 84443

== ENCOUNTER 2022-09-11 09:26 | Outpatient (REF) | payer OTHER, SELFPAY ==
[2022-09-11 11:35] LABS: Lithium 0.36 mmol/L (0.60-1.20)
[2022-09-11 11:36] LABS: Anion Gap 11 (12-20); Blood Urea Nitrogen 15 mg/dL (9-16); Calcium 9.1 mg/dL (8.4-10.2); Carbon Dioxide 19 mmol/L (22-29); Chloride 115 mmol/L (96-108); Estimated Glomerular Filt Rate > 60; Glucose Random 79 mg/dL (60-115); Potassium 4.1 mmol/L (3.3-5.1); Sodium 141 mmol/L (135-145)
[2022-09-11 11:59] LABS: Thyroid Stimulating Hormone 0.99 uIU/mL (0.32-4.0)
== END 2022-09-11 09:27 | disposition home or self-care (01) ==
LOC: HO.LAB 09:26
PROVIDERS: PCP Internal Medicine; Visit Provider Psychiatry & Neurology Psychiatry
DX: Z79.899 Other long term (current) drug therapy (principal)
CPT/HCPCS: 36415; 80048; 80178; 84443

== ENCOUNTER 2022-09-28 13:24 | Emergency (ER) | payer OTHER, SELFPAY ==
--- NOTE | ~2022-09-28 | CT_ITS ---
EXAMINATION: CT ABDOMEN AND PELVIS WITHOUT CONTRAST CLINICAL INFORMATION: LLQ pain. COMPARISON: No pertinent prior studies are available for comparison. TECHNIQUE: Multidetector volumetric imaging was performed from the superior aspect of the liver through the pubic symphysis without contrast per request. Sagittal and coronal reformatted images were obtained on the technologist workstation. This CT examination was performed using dose optimization techniques as appropriate, variously including the following: *Automated exposure control *Adjustment of mA and/or kV according to patient size (this includes techniques or standardized protocols for targeted exams where dose is matched to indication/reason for exam; i.e. extremities or head) *Use of iterative reconstruction technique DLP: 1024 mGy-cm. FINDINGS: LUNG BASES: The visualized lung bases are unremarkable. Small hiatal hernia LIVER, GALLBLADDER, BILIARY TREE: Diffuse fatty infiltration of the liver but no focal hepatic lesion nor biliary ductal dilatation appreciated. The gallbladder surgically absent PANCREAS: Mild soft tissue stranding is seen adjacent pancreatic head. Early pancreatitis cannot be excluded. Correlation with amylase and lipase levels would be recommended. SPLEEN: Unremarkable. ADRENAL GLANDS: Unremarkable. KIDNEYS AND URETERS: The kidneys are normal in size, shape, and attenuation. No hydronephrosis, hydroureter, or calculi seen. No perinephric stranding. BLADDER: Unremarkable. GASTROINTESTINAL TRACT: I do not appreciate any colonic wall thickening or pericolonic inflammatory change. The appendix is not visualized and may be surgically absent. No focal inflammatory changes are seen in the right lower quadrant. Postoperative changes are seen from Chad-en-Y gastric bypass surgery do not appreciate any obstructive changes to the small bowel. ABDOMINAL WALL: No significant hernia is appreciated. LYMPHOVASCULAR STRUCTURES: No lymphadenopathy. The aorta is unremarkable.. PELVIC VISCERA: Surgically absent OSSEUS STRUCTURES: Degenerative changes in the lower lumbar spine CT/CT abdomen pelvis wo IV con IMPRESSION: 1. Mild soft tissue stranding adjacent to the pancreatic head. Early pancreatitis cannot be excluded. Correlation with amylase and lipase levels would be recommended. 2. Chronic appearing and postoperative changes otherwise as described.
[2022-09-28 13:58] VITALS: BP 132/83; PULSE 71; RESP 17; TEMP 36.1; O2SAT 98; BMI 45.8
--- NOTE | 2022-09-28 14:00 | ED.GENADULT ---
HPI - General Adult General Chief complaint: General Medical Stated complaint: Pelvic Pain Time Seen by Provider: 09/28/22 16:36 Source: patient Mode of arrival: ambulatory Limitations: no limitations History of Present Illness HPI narrative: Patient is a 41-year-old female with history of gastric bypass with recent revision 2 mos ago, hysterectomy, cholecystectomy, appendectomy, Bipolar, PTSD, fibromyalgia, HSV, HPV presenting to ED with suprapubic pain which woke her from sleep at 2am as well as mild nausea. She also reports excess gas today which exacerbated her pain, and had to strain to have a bowel movement. She reports having a normal bowel movement yesterday. She denies any vomiting or diarrhea. Denies hematochezia or melena. Pain radiates to lower back. Denies dysuria, hematuria, or other urinary symptoms. Denies fevers. Denies concern for STIs, denies vaginal bleeding or abnormal vaginal discharge. MD complaint: LLQ abdominal pain Onset (ago): hour(s) Location: abdomen Radiation: back Severity: severe Severity scale (1-10): 8 Quality: aching Pain Consistency: constant Relieving factors: rest Exacerbating factors: movement Associated symptoms: nausea/vomiting (Reports nausea, denies vomiting) Treatments prior to arrival: none Related Data Home Medications Medication Instructions Recorded Confirmed cetirizine 10 mg tablet 1 tab PO DAILY 04/17/21 07/18/21 albuterol sulfate 90 mcg/actuation 1 puff inhalation Q3-4H 07/18/21 07/18/21 aerosol inhaler (Ventolin HFA) gabapentin 600 mg tablet 1 tab PO TID 07/18/21 07/18/21 levothyroxine 75 mcg tablet 1 tab PO DAILY 07/18/21 07/18/21 lithium carbonate 600 mg capsule 1 cap PO BID 07/18/21 07/18/21 Previous Rx's Medication Instructions Recorded benztropine 0.5 mg tablet 0.5 mg PO BID #60 tabs 07/31/21 capsaicin 0.025 % topical cream 1 appl topical TID PRN knee pain 07/31/21 #10 grams docusate sodium 100 mg capsule 100 mg PO BID #60 caps 07/31/21 lithium carbonate 600 mg capsule 600 mg PO BID #60 caps 07/31/21 quetiapine 50 mg tablet (Seroquel) 50 mg PO BID PRN anxiety #60 tabs 07/31/21 risperidone 2 mg tablet 2 mg PO BID #60 tabs 07/31/21 trazodone 50 mg tablet 50 mg PO BEDTIME PRN insomnia #30 07/31/21 tabs polyethylene glycol 3350 17 17 g PO DAILY #119 grams 09/28/22 gram/dose oral powder (Miralax) sennosides 8.6 mg capsule (senna) 17.2 mg PO BEDTIME PRN 09/28/22 constipation #14 caps Allergies Allergy/AdvReac Type Severity Reaction Status Date / Time latex [LATEX] Allergy Mild HIVES Verified 09/28/22 13:58 Review of Systems Review of Systems: As per HPI. Yes all other systems are reviewed and are negative Constitutional: Constitutional: Reports as per HPI [facility] Past Medical History Medical History (Updated 09/28/22 @ 19:58 by Roseline Richter NP) Bipolar disorder Dizziness Fibromyalgia Herpes HPV (human papilloma virus) infection PTSD (post-traumatic stress disorder) Vertigo Surgical History History of appendectomy History of hysterectomy Hx of cholecystectomy Social History Social History Household Members: None Housing: Apartment Do you presently have visiting nurse or other home services: No Alcohol intake: never Patient Tobacco Use Status: Former Tobacco user e-Cigarette/Vaping Use: Never Used Second Hand Smoke Exposure: Yes Advance Directives: No Advance Directives Information Provided: No service: No Sexual orientation: Straight/Heterosexual Physical Exam ED Vital Signs: Vital Signs - 24 hr 09/28/22 13:58 09/28/22 18:07 09/28/22 19:17 Temperature 97 F 98.6 F Pulse Rate 71 61 58 Respiratory Rate 17 14 17 Blood Pressure 132/83 115/63 116/58 L Pulse Oximetry 98 98 99 Oxygen Delivery Method Room Air Room Air Room Air BMI result Body Mass Index 45.8 Vital signs have been reviewed and appear to be correct. Blood pressure normal. Heart rate normal. Respiratory rate normal. Temperature normal. Oxygen saturation normal. Const General: cooperative, healthy appearing and no acute distress Orientation/consciousness: oriented to person, oriented to place, oriented to time and patient oriented x3 Limitations: no limitations HENMT Head: Yes normocephalic and Yes atraumatic Ears: external ears normal General nose exam: Normal external nose present Face and sinus: Yes face symmetric Mouth: oropharynx normal and moist mucous membranes Throat: Yes uvula midline Eyes Pupils: Equal, round and reactive pupils present Neck Neck: Yes normal visual inspection and Yes supple Resp Effort & Inspection: normal respiratory effort and able to speak in complete sentences Auscultation: clear to auscultation bilaterally Cardio Rate: regular rate Rhythm: regular rhythm Heart sounds: S1 normal heart sound present and S2 normal heart sound present GI Inspection: Yes normal to inspection Palpation (GI): Soft to palpation, Tenderness to palpation present (GI) in the LLQ and suprapubicly; with no rebound tenderness and no guarding Auscultation: normoactive bowel sounds Other: Exam chaperoned by YVON Chris and YVON Krishnan. Exam limited r/t body habitus. General: Yes no CVA tenderness External Female Exam: normal external appearance Speculum Exam - Vagina: normal appearance of the vagina and normal vaginal discharge Speculum Exam - Cervix: normal appearance of the cervix, normal palpation and Cervical os closed Bimanual exam- vagina & uterus: normal palpation and cervical motion tenderness (mild) Back/Spine/Pelvis Back: no CVA tenderness Skin General skin exam: elasticity normal and turgor normal Neuro General: oriented to person, oriented to place, oriented to time, patient oriented x3, moves all extremities, no focal motor deficits and CN's II-XI intact bilaterally Cranial nerves: Yes Equal, round and reactive pupils present Cognition (Neuro): normal cognition Extrem General: Yes full ROM, Yes no pedal edema and Yes no calf tenderness Psych Mental Status: mental status grossly normal Affect: normal affect Thought process: Normal thought process present Course Course Course Narrative: RME: 41 year old female with a past medical history of bipolar, PTSD, total hysterectomy, gastric bypass s/p gastric bypass revision at [facility] 2 mos ago, presenting to the ED complaining of pelvic pain since this morning with associated nausea and dysuria/pressure. Denies fever, vomiting, vaginal bleeding/discharge, hematuria Labs, UA ordered Full HPI, ROS and PE to be performed by primary ED provider. 19:43 CT abdomen reveals mild soft tissue stranding adjacent to the pancreatic head and early pancreatitis cannot be ruled out. Patient does not have any upper abdominal pain or vomiting, lipase is WNL, likely unrelated however patient advised of results. Constipation and obstipation visualized on CT which are likely the cause of patient's symptoms. All results discussed with patient and all questions answered. Prescribed Miralax and senna, instructed patient to increase her fluid intake and follow up with her PCP this week. Return precautions discussed at bedside and patient agreeable to plan of care. Medications Administered Discontinued Medications Generic Name Dose Route Start Last Admin Trade Name Nithya PRN Reason Stop Dose Admin Ketorolac Tromethamine 30 mg 09/28/22 17:31 09/28/22 17:44 Ketorolac Tromethamine 30 Mg/Ml Vial IM 09/28/22 17:32 30 mg ONCE ONE Administration Medical Decision Making Medical Decision Making [facility] Narrative: Patient is a 41-year-old female with history of gastric bypass with recent revision 2 mos ago, hysterectomy, cholecystectomy, appendectomy, Bipolar, PTSD, fibromyalgia, HSV, HPV presenting to ED with suprapubic pain which woke her from sleep at 2am as well as mild nausea. On exam patient is awake, A+Ox3, VS WNL, afebrile, LS CTA throughout, abdomen soft, TTP LLQ, no CVA tenderness, mild CMT on pelvic exam. Labs ordered in triage unremarkable, no leukocytosis, UA shows no concern for infection, no blood, negative . Given LLQ tenderness, concern for constipation, diverticulitis, ovarian cyst. Less likely renal calculi. Unlikely UTI/pyelonephritis, ectopic. Plan: CT abdomen pelvis, pain management, pelvic swabs Please refer to course for remaining clinical decision making. Differential Diagnosis As above. Lab Data [facility] Lab Attestation statement: I reviewed the patient's lab results. 09/28/22 14:17 09/28/22 14:17 Labs: Lab Results 09/28/22 09/28/22 09/28/22 Range/Units 14:17 14:17 14:17 WBC 10.0 (4.8-10.8) X10*3/uL RBC 4.38 (4.20-5.50) X10*6/uL Hgb 12.3 (12.0-16.0) g/dl Hct 39.6 (37.0-47.0) % MCV 90.4 (80.0-98.0) fL MCH 28.1 (27.0-33.0) pg MCHC 31.1 (31.0-35.0) g/dl RDW 17.9 H (11.0-16.0) % Plt Count 458 H (160-400) X10*3/uL MPV 10.1 (9.4-12.3) fL Immature Gran % (Auto) 0.2 (0.0-0.4) % Neut % (Auto) 63.0 (45-73) % Lymph % (Auto) 28.2 (20-40) % [place] % (Auto) 7.6 (2-11) % Eos % (Auto) 0.6 (0-4) % Baso % (Auto) 0.4 (0-2) % Lymph # (Auto) 2.8 (1.2-4.9) X10*3/uL [place] # (Auto) 0.8 (0.1-1.2) X10*3/uL Eos # (Auto) 0.1 (0.0-0.4) X10*3/uL Baso # (Auto) 0.0 (0.0-0.2) X10*3/uL Abs Immat Gran (auto) 0.02 (0.00-0.03) X10*3/uL Absolute Neuts (auto) 6.3 (2.0-8.3) x10*3/uL Absolute Nucleated RBC 0.000 (0.0-0.012) X10*3/uL Nucleated RBC % (auto) 0.0 (0.0-0.2) /100WBC Sodium 140 (135-145) mmol/L Potassium 4.1 (3.3-5.1) mmol/L Chloride 115 H (96-108) mmol/L Carbon Dioxide 20 L (22-29) mmol/L Anion Gap 9 L (12-20) BUN 13 (9-16) mg/dL Creatinine 0.76 (0.5-1.4) mg/dL Estim Creat Clear Calc 131.2 Estimated GFR > 60 Random Glucose 97 (60-115) mg/dL Calcium 8.4 D (8.4-10.2) mg/dL Magnesium 2.0 (1.6-2.6) mg/dL Total Bilirubin 0.9 (0.0-1.0) mg/dL Direct Bilirubin 0.3 (0.0-0.5) mg/dL AST 19 (5-31) U/L ALT 27 (0-31) U/L Alkaline Phosphatase 93 (39-117) U/L Total Protein 5.6 L (6.5-8.0) g/dL Albumin 3.0 L (3.5-5.0) g/dL Lipase 8 (8-78) U/L Urine Color Yellow Urine Appearance Clear Urine pH 5.5 (5.0-9.0) Ur Specific [place] 1.020 (1.005-1.025) Urine Protein Negative (Neg-Trace) mg/dL Urine Glucose (UA) Negative (Negative) mg/dL Urine Ketones Negative (Negative) mg/dL Urine Blood Negative (Negative) Urine Nitrite Negative (Negative) Ur Leukocyte Esterase Negative (Negative) Urine Test (NEGATIVE) 09/28/22 Range/Units 14:17 WBC (4.8-10.8) X10*3/uL RBC (4.20-5.50) X10*6/uL Hgb (12.0-16.0) g/dl Hct (37.0-47.0) % MCV (80.0-98.0) fL MCH (27.0-33.0) pg MCHC (31.0-35.0) g/dl RDW (11.0-16.0) % Plt Count (160-400) X10*3/uL MPV (9.4-12.3) fL Immature Gran % (Auto) (0.0-0.4) % Neut % (Auto) (45-73) % Lymph % (Auto) (20-40) % [place] % (Auto) (2-11) % Eos % (Auto) (0-4) % Baso % (Auto) (0-2) % Lymph # (Auto) (1.2-4.9) X10*3/uL [place] # (Auto) (0.1-1.2) X10*3/uL Eos # (Auto) (0.0-0.4) X10*3/uL Baso # (Auto) (0.0-0.2) X10*3/uL Abs Immat Gran (auto) (0.00-0.03) X10*3/uL Absolute Neuts (auto) (2.0-8.3) x10*3/uL Absolute Nucleated RBC (0.0-0.012) X10*3/uL Nucleated RBC % (auto) (0.0-0.2) /100WBC Sodium (135-145) mmol/L Potassium (3.3-5.1) mmol/L Chloride (96-108) mmol/L Carbon Dioxide (22-29) mmol/L Anion Gap (12-20) BUN (9-16) mg/dL Creatinine (0.5-1.4) mg/dL Estim Creat Clear Calc Estimated GFR Random Glucose (60-115) mg/dL Calcium (8.4-10.2) mg/dL Magnesium (1.6-2.6) mg/dL Total Bilirubin (0.0-1.0) mg/dL Direct Bilirubin (0.0-0.5) mg/dL AST (5-31) U/L ALT (0-31) U/L Alkaline Phosphatase (39-117) U/L Total Protein (6.5-8.0) g/dL Albumin (3.5-5.0) g/dL Lipase (8-78) U/L Urine Color Urine Appearance Urine pH (5.0-9.0) Ur Specific [place] (1.005-1.025) Urine Protein (Neg-Trace) mg/dL Urine Glucose (UA) (Negative) mg/dL Urine Ketones (Negative) mg/dL Urine Blood (Negative) Urine Nitrite (Negative) Ur Leukocyte Esterase (Negative) Urine Test NEGATIVE (NEGATIVE) Independent Interpretation I performed an independent interpretation of an: CT Scan Radiology Impression Discussion of test interpretation with radiology: I have reviewed the radiologist's reading. Radiologist Impression: FINDINGS: LUNG BASES: The visualized lung bases are unremarkable. Small hiatal hernia LIVER, GALLBLADDER, BILIARY TREE: Diffuse fatty infiltration of the liver but no focal hepatic lesion nor biliary ductal dilatation appreciated. The gallbladder surgically absent PANCREAS: Mild soft tissue stranding is seen adjacent pancreatic head. Early pancreatitis cannot be excluded. Correlation with amylase and lipase levels would be recommended. SPLEEN: Unremarkable. ADRENAL GLANDS: Unremarkable. KIDNEYS AND URETERS: The kidneys are normal in size, shape, and attenuation. No hydronephrosis, hydroureter, or calculi seen. No perinephric stranding. BLADDER: Unremarkable. GASTROINTESTINAL TRACT: I do not appreciate any colonic wall thickening or pericolonic inflammatory change. The appendix is not visualized and may be surgically absent. No focal inflammatory changes are seen in the right lower quadrant. Postoperative changes are seen from Chad-en-Y gastric bypass surgery do not appreciate any obstructive changes to the small bowel. ABDOMINAL WALL: No significant hernia is appreciated. LYMPHOVASCULAR STRUCTURES: No lymphadenopathy.? The aorta is unremarkable.. PELVIC VISCERA: Surgically absent OSSEUS STRUCTURES: Degenerative changes in the lower lumbar spine CT/CT abdomen pelvis wo IV con IMPRESSION: 1.? Mild soft tissue stranding adjacent to the pancreatic head. Early pancreatitis cannot be excluded. Correlation with amylase and lipase levels would be recommended. 2.? Chronic appearing and postoperative changes otherwise as described. External Record Review External record reviewed: Inpatient record, Office record and Outpatient record Prescription Management I considered prescription management with: Other (laxative) Discharge Plan Discharge Clinical Impression: Constipation Patient Disposition: Home, Self-Care Instructions: Constipation (DC) Additional Instructions: You have been evaluated in the emergency department today for abdominal pain. Your evaluation did not show evidence of medical conditions requiring emergent intervention at this time. Your CT scan showed evidence of constipation. You are being prescribed MiraLax and senna. Ensure that you drink plenty of fluids while taking these medications. Please schedule an appointment with your primary care physician this week. Return to the emergency department if you experience worsening or uncontrolled pain, fevers 100.4? F or greater, recurrent vomiting, inability to tolerate food or fluids by mouth, bloody stools or vomit, black or tarry stools, or any other concerning symptoms. Prescriptions: New polyethylene glycol 3350 [Miralax] 17 gram/dose powder 17 g PO DAILY Qty: 119 0RF senna 8.6 mg capsule 17.2 mg PO BEDTIME PRN (Reason: constipation) Qty: 14 0RF No Action cetirizine 10 mg tablet 1 tab PO DAILY gabapentin 600 mg tablet 1 tab PO TID levothyroxine 75 mcg tablet 1 tab PO DAILY albuterol sulfate [Ventolin HFA] 90 mcg/actuation HFA aerosol inhaler 1 puff inhalation Q3-4H lithium carbonate 600 mg capsule 1 cap PO BID risperidone 2 mg Tablet 2 mg PO BID Qty: 60 0RF docusate sodium 100 mg Capsule 100 mg PO BID Qty: 60 0RF capsaicin 0.025 % Cream 1 appl topical TID PRN (Reason: knee pain) Qty: 10 0RF Protocol: Apply to: Apply to: knees benztropine 0.5 mg tablet 0.5 mg PO BID Qty: 60 0RF lithium carbonate 600 mg capsule 600 mg PO BID Qty: 60 0RF trazodone 50 mg tablet 50 mg PO BEDTIME PRN (Reason: insomnia) Qty: 30 0RF quetiapine [Seroquel] 50 mg tablet 50 mg PO BID PRN (Reason: anxiety) Qty: 60 0RF Referrals: [facility] [Provider Group]
--- NOTE | 2022-09-28 14:19 | MHC.EDTECH ---
Labs and urine collected and sent
[2022-09-28 14:23] LABS: MANUAL DIFF FLAG NO
[2022-09-28 14:26] LABS: Basophils Percent Auto 0.4 % (0-2); Eosinophils Absolute Auto 0.1 X10*3/uL (0.0-0.4); Eosinophils Percent Auto 0.6 % (0-4); Hematocrit 39.6 % (37.0-47.0); Hemoglobin 12.3 g/dl (12.0-16.0); Imm Gran Abs Auto 0.02 X10*3/uL (0.00-0.03); Imm Gran Pct Auto 0.2 % (0.0-0.4); Lymphocytes Absolute Auto 2.8 X10*3/uL (1.2-4.9); Lymphocytes Percent Auto 28.2 % (20-40); Mean Corpuscular HGB Conc 31.1 g/dl (31.0-35.0); Mean Corpuscular Hemoglobin 28.1 pg (27.0-33.0); Mean Corpuscular Volume 90.4 fL (80.0-98.0); Mean Platelet Volume 10.1 fL (9.4-12.3); Monocytes Absolute Auto 0.8 X10*3/uL (0.1-1.2); Monocytes Percent Auto 7.6 % (2-11); Neutrophils Absolute Auto 6.3 x10*3/uL (2.0-8.3); Platelet Count 458 X10*3/uL (160-400); Red Blood Count 4.38 X10*6/uL (4.20-5.50); Red Cell Distribution Width 17.9 % (11.0-16.0)
[2022-09-28 14:29] LABS: Appearance Urine Clear; Color Urine Yellow; Glucose Urine UA Negative (Negative); Leukocyte Esterase Urine Negative (Negative); Nitrite Urine Negative (Negative); PH 5.5 (5.0-9.0); Urine Blood Negative (Negative); Urine Ketones Negative (Negative); Urine Protein Negative (Neg-Trace)
[2022-09-28 14:41] LABS: Alanine Aminotransferase 27 U/L (0-31); Alkaline Phosphatase 93 U/L (39-117); Anion Gap 9 (12-20); Aspartate Amino Transferase 19 U/L (5-31); Bilirubin Direct 0.3 mg/dL (0.0-0.5); Bilirubin Total 0.9 mg/dL (0.0-1.0); Blood Urea Nitrogen 13 mg/dL (9-16); Calcium 8.4 mg/dL (8.4-10.2); Carbon Dioxide 20 mmol/L (22-29); Chloride 115 mmol/L (96-108); Creatinine Clr Calc Pharmacy 131.2; Estimated Glomerular Filt Rate > 60; Glucose Random 97 mg/dL (60-115); Lipase 8 U/L (8-78); Potassium 4.1 mmol/L (3.3-5.1); Sodium 140 mmol/L (135-145); Total Protein 5.6 g/dL (6.5-8.0)
[2022-09-28 17:24] LABS: UPreg QC Valid YES; Urine Pregnancy NEGATIVE (NEGATIVE)
[2022-09-28] MEDS: Ketorolac Tromethamine 30 MG/ML VIAL IM (17:44)
[2022-09-28 18:07] VITALS: BP 115/63; PULSE 61; RESP 14; O2SAT 98
[2022-09-28 19:17] VITALS: BP 116/58; PULSE 58; RESP 17; TEMP 37; O2SAT 99
--- NOTE | 2022-09-28 19:33 | PC.NURSE ---
Report from Shannan Webb RN, assumed care of pt at this time. Resting in bed A&Ox3 skin pwd respirations even unlabored. Offers no complaints, awaiting repeat troponin, aware of plan of care.
[2022-09-29 03:58] LABS: CT PCR NOT DETECTED (Not Detect.); NG PCR NOT DETECTED (Not Detect.)
[2022-09-29 14:13] LABS: BV Int Neg Control Negative (Negative); BV Int Pos Control Positive (Positive)
== END 2022-09-28 20:34 | disposition home or self-care (01) ==
PROVIDERS: Physician Assistant; Registered Nurse Emergency; Emergency Provider Emergency Medicine Emergency Medical Services
DX: K59.00 Constipation, unspecified (principal); R10.32 Left lower quadrant pain; Z90.710 Acquired absence of both cervix and uterus; Z90.49 Acquired absence of other specified parts of digestive tract; Z98.84 Bariatric surgery status
CPT/HCPCS: 0353U; 36415; 74176; 80048; 80076; 81003; 81025; 83690; 83735; 85025; 87480; 87510; 87660; 96372; 99283; 99284; J1885

== ENCOUNTER 2022-11-17 11:35 | Emergency (ER) | payer OTHER, SELFPAY ==
[2022-11-17 12:14] VITALS: BP 145/90; PULSE 87; RESP 18; TEMP 36.4; O2SAT 97; BMI 42.6
--- NOTE | 2022-11-17 12:14 | ED_ITS ---
HPI - Headache General Chief Complaint: Headache Stated Complaint: Migraine since Wednesday Time Seen by Provider: 11/17/22 14:49 Source: patient Mode of arrival: ambulatory Limitations: no limitations History of Present Illness HPI Narrative: Patient is a 41 year old assigned female at with a history of migraines, PTSD, and fibromyalgia presenting to the emergency department today with a migraine headache. Patient states that for the last 3 days she has had a migraine that is resistant to her usual medications. Patient denies any dizziness, lightheadedness, abdominal pain, vomiting, fever, chills, blurry vi klaus, double vision, loss of vision, chest pain, difficulty breathing, shortness of breath, back pain, night sweats, pain with urination, increased urinary frequency, increased urinary urgency, blood in her urine or stool, syncope or a near syncopal episode, recent trauma or falls, bowel incontinence, bladder incontinence, bowel retention, bladder retention, or any other complaints at this time. MD elicited complaint: migraine Onset (ago): day(s) (3) Severity: mild Pain scale (0-10): 4 Quality & Timing: dull Exacerbating factors: none Relieving factors: nothing Associated symptoms: nausea Related Data Home Medications Medication Instructions Recorded Confirmed cetirizine 10 mg tablet 1 tab PO DAILY 04/17/21 07/18/21 albuterol sulfate 90 mcg/actuation 1 puff inhalation Q3-4H 07/18/21 07/18/21 aerosol inhaler (Ventolin HFA) gabapentin 600 mg tablet 1 tab PO TID 07/18/21 07/18/21 levothyroxine 75 mcg tablet 1 tab PO DAILY 07/18/21 07/18/21 lithium carbonate 600 mg capsule 1 cap PO BID 07/18/21 07/18/21 Previous Rx's Medication Instructions Recorded benztropine 0.5 mg tablet 0.5 mg PO BID #60 tabs 07/31/21 capsaicin 0.025 % topical cream 1 appl topical TID PRN knee pain 07/31/21 #10 grams docusate sodium 100 mg capsule 100 mg PO BID #60 caps 07/31/21 lithium carbonate 600 mg capsule 600 mg PO BID #60 caps 07/31/21 quetiapine 50 mg tablet (Seroquel) 50 mg PO BID PRN anxiety #60 tabs 07/31/21 risperidone 2 mg tablet 2 mg PO BID #60 tabs 07/31/21 trazodone 50 mg tablet 50 mg PO BEDTIME PRN insomnia #30 07/31/21 tabs polyethylene glycol 3350 17 17 g PO DAILY #119 grams 09/28/22 gram/dose oral powder (Miralax) sennosides 8.6 mg capsule (senna) 17.2 mg PO BEDTIME PRN 09/28/22 constipation #14 caps Allergies Allergy/AdvReac Type Severity Reaction Status Date / Time latex [LATEX] Allergy Mild HIVES Verified 09/28/22 13:58 Review of Systems Constitutional: Constitutional: Reports no additional constitutional complaints, Denies chills, Denies fever(s), Reports headache(s) and Denies night sweats Eyes: Eyes: Reports no additional eye complaints, Denies blurry vision, Denies change in vision, Denies diplopia, Denies eye discharge, Denies loss of vision and Denies eye pain ENT: Denies dizziness and Reports headache(s) Cardiovascular: Cardiovascular: Reports no additional cardiovascular complaints, Denies chest pain, Denies lightheadedness, Denies Loss of Consciousness and Denies dyspnea Respiratory: Respiratory: Reports no additional respiratory complaints and Denies dyspnea Gastrointestinal: Gastrointestinal: Reports no additional gastrointestinal complaints, Denies abdominal pain, Denies melena, Denies hematochezia, Denies change in bowel habits, Denies change in stool character and Reports nausea Genitourinary: Genitourinary: Denies hematuria, Denies urinary frequency, Denies dysuria, Denies urinary incontinence, Denies urinary hesitancy and Denies urinary urgency Musculoskeletal: Musculoskeletal: Reports no additional musculoskeletal complaints, Denies numbness and Denies tingling Neurologic: Denies dizziness, Reports headache(s), Denies loss of vision, Denies numbness and Denies tingling Psychiatric: Psychiatric: Reports no additional psychiatric complaints Endocrine: Endocrine: Reports no additional endocrine complaints Hematologic/Lymphatic: Hematologic/Lymphatic: Reports no additional hematologic/lymphatic complaints Allergic/Immunologic: Allergic/Immunologic: Reports no additional allergic/immunologic complaints PMFSH Past Medical History Attestation statement: The following information was validated with the patient. Source: old records reviewed and nursing notes reviewed Medical History Bipolar disorder Dizziness Fibromyalgia Herpes HPV (human papilloma virus) infection PTSD (post-traumatic stress disorder) Vertigo Surgical History History of appendectomy History of hysterectomy Hx of cholecystectomy Social History Social History Household Members: None Housing: Apartment Do you presently have visiting nurse or other home services: No Alcohol intake: never Patient Tobacco Use Status: Former Tobacco user Smoked in Last 30 Days: No e-Cigarette/Vaping Use: Never Used Second Hand Smoke Exposure: Yes Use of substances other than those prescribed or required for medical reasons: No Advance Directives: No Advance Directives Information Provided: No service: No Sexual orientation: Straight/Heterosexual Physical Exam Vital Signs: Vital Signs: Last Vital Signs Temp 98.5 F 11/17/22 17:56 Pulse 54 11/17/22 17:56 Resp 16 11/17/22 17:56 BP 110/68 11/17/22 17:56 Pulse Ox 97 11/17/22 17:56 O2 Del Method Room Air 11/17/22 17:56 BMI result Body Mass Index 42.6 Const: General: cooperative, no acute distress, alert and awake Nutritional Appearance: well nourished Orientation/consciousness: patient oriented x3 Limitations: no limitations HEENT: Head: Yes normal to inspection and Yes atraumatic Ears: hearing grossly normal bilaterally and external ears normal General nose exam: Normal external nose present, no nasal discharge noted and no epistaxis Face and sinus: Yes normal facial exam, No abrasion and No laceration Mouth: Normal oral and palatal mucosa present, no drooling and no muffled voice Eyes: General: appearance normal, both eyes and all related structures Periorbital: periorbital findings normal Eyelids: Yes eyelids normal Conjunctivae: conjunctivae normal Pupils: Equal, round and reactive pupils present EOM: EOMs intact bilaterally Neck: Neck: Yes normal visual inspection, Yes full ROM and Yes no lymphadenopathy Chest: Chest palpation & inspection: normal inspection of the chest Resp: Effort & Inspection: normal respiratory effort and able to speak in complete sentences Auscultation: clear to auscultation bilaterally Cardio: Rate: regular rate Rhythm: regular rhythm GI: Inspection: Yes normal to inspection Palpation (GI): Soft to palpation, not firm, nontender and no guarding Neuro: General: patient oriented x3 and moves all extremities Cranial nerves: Yes Equal, round and reactive pupils present Cognition (Neuro): nor mal cognition Motor exam (neuro): 5/5 motor strength present throughout Sensory Exam: Normal double simultaneous stimulation for sensation Coordination: [id number] test normal Extrem: General: Yes normal to inspection, Yes full ROM and Yes capillary refill normal Psych: Appearance: grossly normal Mental Status: mental status grossly normal Affect: normal affect Attitude: cooperative Thought process: Normal thought process present Thought content: Normal thought content present Insight: Good insight present (Psych) Course Course Course Narrative: RME - 41 yo female with history of PTSD, bipolar disorder, migraines who presents to the ER for evaluation of a diffuse migraine headache for the last 4 days. She is usual for her migraines however no improvement with imitrex and OTC meds. She is also on monthly injections and follows w/ neurology. Plan: treat pain and reassess Medications Administered Discontinued Medications Generic Name Dose Route Start Last Admin Trade Name Nithya PRN Reason Stop Dose Admin Diphenhydramine HCl 25 mg 11/17/22 14:53 11/17/22 15:56 Diphenhydramine Hcl 50 Mg/Ml Vial IVPUSH 11/17/22 14:54 25 mg ONCE ONE Administration Ketorolac Tromethamine 15 mg 11/17/22 14:53 11/17/22 15:55 Ketorolac Tromethamine 15 Mg/Ml Vial IVPUSH 11/17/22 14:54 15 mg ONCE ONE Administration Ondansetron HCl 4 mg 11/17/22 14:53 11/17/22 15:55 Ondansetron Hcl 4 Mg/2 Ml Vial IVPUSH 11/17/22 14:54 4 mg ONCE ONE Administration Medical Decision Making Medical Decision Making [facility] Narrative: Patient is a 41 year old assigned female at with a history of PTSD, fibromyalgia, and migraines presenting to the emergency department today with a headache. Patient's physical exam was unremarkable. I explained my physical exam findings to the patient. I answered all questions asked by the patient. Patient received IV toradol, benadryl, and Zofran which she stated helped her symptoms significantly. I stressed the importance of the patient taking her medication as prescribed. I stressed the importance of the patient following up with her primary care provider and neurologist. I stressed the importance of the patient returning to the emergency department immediately if her symptoms were to worsen or if she were to develop any dizziness, shortness of breath, difficulty breathing, chest pain, blurry vision, loss of vision, nausea, vomiting, abdominal pain, fever, chills, back pain, or any other complaints. Patient verbalized agreement and understanding with this treatment plan and discharge. Differential Diagnosis Differential Diagnoses: The differential diagnosis associated with the presentation includes Migraine Headache Nausea Discharge Plan Discharge Clinical Impression: Migraine Patient Disposition: Home, Self-Care Instructions: Migraine Headache (ED) Additional Instructions: Follow up with your primary care provider and your neurologist. Return to the emergency department immediately if your symptoms worsen or if you develop any dizziness, shortness of breath, difficulty breathing, chest pain, blurry vision, loss of vision, nausea, vomiting, abdominal pain, fever, chills, back pain, or any other complaints. Prescriptions: No Action cetirizine 10 mg tablet 1 tab PO DAILY gabapentin 600 mg tablet 1 tab PO TID levothyroxine 75 mcg tablet 1 tab PO DAILY albuterol sulfate [Ventolin HFA] 90 mcg/actuation HFA aerosol inhaler 1 puff inhalation Q3-4H lithium carbonate 600 mg capsule 1 cap PO BID risperidone 2 mg Tablet 2 mg PO BID Qty: 60 0RF docusate sodium 100 mg Capsule 100 mg PO BID Qty: 60 0RF capsaicin 0.025 % Cream 1 appl topical TID PRN (Reason: knee pain) Qty: 10 0RF Protocol: Apply to: Apply to: knees benztropine 0.5 mg tablet 0.5 mg PO BID Qty: 60 0RF lithium carbonate 600 mg capsule 600 mg PO BID Qty: 60 0RF trazodone 50 mg tablet 50 mg PO BEDTIME PRN (Reason: insomnia) Qty: 30 0RF quetiapine [Seroquel] 50 mg tablet 50 mg PO BID PRN (Reason: anxiety) Qty: 60 0RF polyethylene glycol 3350 [Miralax] 17 gram/dose powder 17 g PO DAILY Qty: 119 0RF senna 8.6 mg capsule 17.2 mg PO BEDTIME PRN (Reason: constipation) Qty: 14 0RF Referrals: Ebonie Toledo [Primary Care Provider] - Interventions: ED Discharge Assessment Last Done: 11/17/22 18:52 Discharge Date/Time: 11/17/22 18:52 Print Language: Hebrew
[2022-11-17] MEDS: Ketorolac Tromethamine 15 MG/ML VIAL IVPUSH (15:55)
[2022-11-17] MEDS: ondansetron HCL 4 MG/2 ML VIAL IVPUSH (15:55)
[2022-11-17] MEDS: diphenhydrAMINE HCL 50 MG/ML VIAL 25 MG IVPUSH (15:56)
[2022-11-17 16:02] VITALS: BP 118/66; PULSE 50; RESP 12; TEMP 36.9; O2SAT 97
[2022-11-17 17:56] VITALS: BP 110/68; PULSE 54; RESP 16; TEMP 36.9; O2SAT 97
== END 2022-11-17 18:52 | disposition home or self-care (01) ==
PROVIDERS: Emergency Provider Emergency Medicine; PCP Internal Medicine
DX: G43.909 Migraine, unspecified, not intractable, without status migrainosus (principal); Z87.891 Personal history of nicotine dependence; Z79.899 Other long term (current) drug therapy
CPT/HCPCS: 96374; 96375; 99284; J1200; J1885; J2405

== ENCOUNTER 2022-12-16 17:41 | Inpatient (IN) | payer OTHER, SELFPAY ==
--- NOTE | 2022-12-16 18:09 | ED_ITS ---
HPI - Psych General Chief Complaint: Psychiatric Symptoms Stated Complaint: Crisis/Section 12 Time Seen by Provider: 12/16/22 18:08 Source: patient and old records reviewed Mode of arrival: EMS Limitations: no limitations History of Present Illness HPI Narrative: 42 yo female with hx of bipolar and PTSD who comes in with c/o being different and loving god. she was walking around [place] naked with her 3 year old grandchild professing her love for god. she tells me she is fine and that she just loves god. complaint: other (delusions) Onset (ago): unknown Duration: constant History of same: No Relieving factors: none Exacerbating factors: none Context: other (patient denies all of this to me) Associated psychiatric symptoms: delusions Associated symptoms: denies other symptoms Treatments prior to arrival: placed on mental health hold Related Data Home Medications Medication Instructions Recorded Confirmed albuterol sulfate 90 mcg/actuation 1 puff inhalation Q3-4H PRN 07/18/21 12/16/22 aerosol inhaler (Ventolin HFA) Shortness Of Breath Or Wheezing benztropine 0.5 mg tablet 0.5 mg PO BEDTIME PRN Parkinsonism 12/16/22 12/16/22 cetirizine 10 mg tablet 10 mg PO DAILY PRN allergies 12/16/22 12/16/22 cholecalciferol (vitamin D3) 50 50 mcg PO DAILY 12/16/22 12/16/22 mcg (2,000 unit) capsule eletriptan 40 mg tablet 40 mg PO DAILY 12/16/22 12/16/22 levothyroxine 75 mcg tablet 75 mcg PO DAILY 12/16/22 12/16/22 lithium carbonate 300 mg 300 mg PO BID 12/16/22 12/16/22 tablet,extended release quetiapine 50 mg tablet 50 mg PO BEDTIME 12/16/22 12/16/22 risperidone 1 mg tablet 1 - 2 mg PO DAILY PRN Anxiety 12/16/22 12/16/22 Allergies Allergy/AdvReac Type Severity Reaction Status Date / Time latex [LATEX] Allergy Mild HIVES Verified 09/28/22 13:58 Review of Systems Review of Systems: Constitutional : No Fever, No Chills ENT/Mouth : No Ear Pain, No Nasal Congestion, No sore throat Eyes: No Eye Pain, No Swelling, No Redness Cardiovascular : No Chest Pain, No SOB Respiratory : No Cough, No Sputum, No Dyspnea Gastrointestinal : No Nausea, No Vomiting, No Diarrhea, No Hematochezia, No Melena Genitourinary : No Dysuria, No Urinary Frequency, No Hematuria Musculoskeletal : No Myalgias Skin : No Skin Lesions, No rash Neuro : No Weakness, No Numbness, No Paresthesias, No Dizziness, No Headache Psych : no Anxiety, no Depression, no SI/HI Heme/Lymph: No Lymphadenopathy Endocrine : No Polyuria, No Polydipsia All other systems reviewed and are negative [facility] Past Medical History Attestation statement: The following information was validated with the patient. Source: old records reviewed Medical History Bipolar disorder Dizziness Fibromyalgia Herpes HPV (human papilloma virus) infection PTSD (post-traumatic stress disorder) Vertigo Surgical History History of appendectomy History of hysterectomy Hx of cholecystectomy Social History Social History Household Members: None Housing: Apartment Do you presently have visiting nurse or other home services: No Alcohol intake: never Patient Tobacco Use Status: Former Tobacco user e-Cigarette/Vaping Use: Never Used Second Hand Smoke Exposure: Yes Advance Directives: No Advance Directives Information Provided: No service: No Sexual orientation: Straight/Heterosexual Physical Exam Vital Signs: Vital Signs: Last Vital Signs Temp 97.1 F 12/16/22 18:10 Pulse 89 12/16/22 18:20 Resp 20 12/16/22 18:20 BP 152/92 H 12/16/22 18:20 Pulse Ox 97 12/16/22 18:10 O2 Del Method Room Air 12/16/22 18:10 BMI result Body Mass Index 41.2 Appearance: Alert. Oriented X3. No acute distress. very pleasant and smiling - stating she just did this for the love of god and we might not think this is normal but that is okay and she states she is not in crisis Eyes: Pupils equal, round and reactive to light. ENT: Pharynx normal. Neck: Normal inspection. Neck supple. CVS: Normal heart rate and rhythm. Pulses normal. Respiratory: No respiratory distress. Breath sounds normal. Abdomen: Soft and non-tender. Skin: Skin warm and dry. Normal skin color. Normal skin turgor. Extremities: No lower extremity edema. No calf ttp Neuro: Oriented X 3. No motor deficit. No sensory deficit. CN 2-12 intact Course Course Course Narrative: Physician observation started at 828pm. Patient placed in physician observation because the patient needed more time for placement given bed search from community [facility] At the time observation was started the patient's vitals were stable, patient is alert and oriented, Neuro: nonfocal, CV RRR, Lungs clear Medical Decision Making Medical Decision Making MDM Narrative: 42 yo female with bipolar disorder and PTSD who is very pleasant but was found wandering naked with her 3 year old grandchild through the streets while she professed her love for god. at this time labs and CARE team consult ordered. She denies medical complaints or triggers to me. Differential Diagnosis Differential Diagnoses: The differential diagnosis associated with the presentation includes bipolar disorder, delusions, substance abuse Admission/Observation Consideration of admission/observation: Escalation of care including admission/observation considered bed search S12 Consult Healthcare Provider Management of the patient was discussed with: Behavioral Health Provider Lab Data [facility] Lab Attestation statement: I reviewed the patient's lab results. 12/16/22 19:53 12/16/22 19:53 Labs: Lab Results 12/16/22 12/16/22 12/16/22 Range/Units 19:37 19:37 19:53 WBC 9.8 (4.8-10.8) X10*3/uL RBC 3.80 L (4.20-5.50) X10*6/uL Hgb 11.4 L (12.0-16.0) g/dl Hct 35.0 L (37.0-47.0) % MCV 92.1 (80.0-98.0) fL MCH 30.0 (27.0-33.0) pg MCHC 32.6 (31.0-35.0) g/dl RDW 14.6 (11.0-16.0) % Plt Count 409 H (160-400) X10*3/uL MPV 9.9 (9.4-12.3) fL Immature Gran % (Auto) 0.3 (0.0-0.4) % Neut % (Auto) 72.0 (45-73) % Lymph % (Auto) 19.6 L (20-40) % Richardson % (Auto) 7.7 (2-11) % Eos % (Auto) 0.2 (0-4) % Baso % (Auto) 0.2 (0-2) % Lymph # (Auto) 1.9 (1.2-4.9) X10*3/uL Richardson # (Auto) 0.8 (0.1-1.2) X10*3/uL Eos # (Auto) 0.0 (0.0-0.4) X10*3/uL Baso # (Auto) 0.0 (0.0-0.2) X10*3/uL Abs Immat Gran (auto) 0.03 (0.00-0.03) X10*3/uL Absolute Neuts (auto) 7.0 (2.0-8.3) x10*3/uL Absolute Nucleated RBC 0.000 (0.0-0.012) X10*3/uL Nucleated RBC % (auto) 0.0 (0.0-0.2) /100WBC Urine Color Dark Yellow Urine Appearance Clear Urine pH 5.5 (5.0-9.0) Ur Specific Starbuck 1.020 (1.005-1.025) Urine Protein Trace (Neg-Trace) mg/dL Urine Glucose (UA) Negative (Negative) mg/dL Urine Ketones Trace (Negative) mg/dL Urine Blood Negative (Negative) Urine Nitrite Negative (Negative) Ur Leukocyte Esterase Negative (Negative) Urine RBC 0-2 (0-2) /HPF Urine WBC 0-5 (0-5) /HPF Ur Squamous Epith Cells 3-5 (0-2) /HPF Urine Bacteria Trace (None Seen) Hyaline Casts 11-20 (0-2) /LPF Urine Opiates Screen Not Detected (Not Detect) Urine Fentanyl Screen Not Detected (Not Detect) Ur Barbiturates Screen Not Detected (Not Detect) Ur Phencyclidine Scrn Not Detected (Not Detect) Ur Amphetamines Screen Not Detected (Not Detect) U Benzodiazepines Scrn Not Detected (Not Detect) Urine Cocaine Screen Not Detected (Not Detect) U Marijuana (THC) Screen Not Detected (Not Detect) Independent Historian Clinical information obtained from an independent historian. History obtained from or confirmed by: EMS External Record Review External record reviewed: Inpatient record Discharge Plan Discharge Clinical Impression: Acute psychosis Patient Disposition: Still a Patient Prescriptions: No Action albuterol sulfate [Ventolin HFA] 90 mcg/actuation HFA aerosol inhaler 1 puff inhalation Q3-4H PRN (Reason: Shortness Of Breath Or Wheezing) cetirizine 10 mg tablet 10 mg PO DAILY PRN (Reason: allergies) lithium carbonate 300 mg tablet extended release 300 mg PO BID levothyroxine 75 mcg tablet 75 mcg PO DAILY eletriptan 40 mg tablet 40 mg PO DAILY quetiapine 50 mg tablet 50 mg PO BEDTIME cholecalciferol (vitamin D3) 50 mcg (2,000 unit) capsule 50 mcg PO DAILY benztropine 0.5 mg tablet 0.5 mg PO BEDTIME PRN (Reason: Parkinsonism) risperidone 1 mg tablet 1 - 2 mg PO DAILY PRN (Reason: Anxiety)
[2022-12-16 18:10] VITALS: BP 126/72; BP 173/103; PULSE 105; PULSE 90; RESP 18; TEMP 36.2; O2SAT 97; O2SAT 98; BMI 41.2
[2022-12-16 18:20] VITALS: BP 152/92; PULSE 89; RESP 20
[2022-12-16 19:55] LABS: Appearance Urine Clear; Color Urine Dark Yellow; Glucose Urine UA Negative (Negative); Leukocyte Esterase Urine Negative (Negative); Nitrite Urine Negative (Negative); PH 5.5 (5.0-9.0); Urine Blood Negative (Negative); Urine Ketones Trace mg/dL (Negative); Urine Protein Trace mg/dL (Neg-Trace)
[2022-12-16 20:00] LABS: Amphetamine Screen Urine Not Detected (Not Detect); Barbiturates, Urine Not Detected (Not Detect); Benzodiazepines Screen Urine Not Detected (Not Detect); Cannabinoid Screen Urine Not Detected (Not Detect); Cocaine Screen Urine Not Detected (Not Detect); Fentanyl, urine Not Detected (Not Detect); Opiate Screen Urine Not Detected (Not Detect); Phencyclidine Screen Urine Not Detected (Not Detect)
[2022-12-16 20:03] LABS: MANUAL DIFF FLAG NO
[2022-12-16 20:08] LABS: Basophils Percent Auto 0.2 % (0-2); Eosinophils Percent Auto 0.2 % (0-4); Hemoglobin 11.4 g/dl (12.0-16.0); Imm Gran Abs Auto 0.03 X10*3/uL (0.00-0.03); Imm Gran Pct Auto 0.3 % (0.0-0.4); Lymphocytes Absolute Auto 1.9 X10*3/uL (1.2-4.9); Lymphocytes Percent Auto 19.6 % (20-40); Mean Corpuscular HGB Conc 32.6 g/dl (31.0-35.0); Mean Corpuscular Volume 92.1 fL (80.0-98.0); Mean Platelet Volume 9.9 fL (9.4-12.3); Monocytes Absolute Auto 0.8 X10*3/uL (0.1-1.2); Monocytes Percent Auto 7.7 % (2-11); Platelet Count 409 X10*3/uL (160-400); Red Cell Distribution Width 14.6 % (11.0-16.0); White Blood Count 9.8 X10*3/uL (4.8-10.8)
[2022-12-16 20:08] LABS: Bacteria Urine Trace (None Seen); RBC Urine 0-2 /HPF (0-2); WBC Urine 0-5 /HPF (0-5)
[2022-12-16 20:32] LABS: Lithium < 0.10 mmol/L (0.60-1.20)
[2022-12-16 20:41] LABS: Salicylate < 5.0 mg/dL (15-30)
[2022-12-16 20:46] LABS: Alanine Aminotransferase 42 U/L (0-31); Albumin Level 2.9 g/dL (3.5-5.0); Alkaline Phosphatase 101 U/L (39-117); Anion Gap 14 (12-20); Aspartate Amino Transferase 55 U/L (5-31); Bilirubin Direct 0.5 mg/dL (0.0-0.5); Blood Urea Nitrogen 8 mg/dL (9-16); Calcium 8.4 mg/dL (8.4-10.2); Carbon Dioxide 23 mmol/L (22-29); Chloride 108 mmol/L (96-108); Creatinine Clr Calc Pharmacy 117.4; Estimated Glomerular Filt Rate > 60; Ethanol < 10 mg/dL; Glucose Random 86 mg/dL (60-115); Potassium 4.4 mmol/L (3.3-5.1); Sodium 141 mmol/L (135-145); Total Protein 5.9 g/dL (6.5-8.0)
[2022-12-16 21:00] LABS: HCG Quantitative < 2 mIU/mL; TSH reflex Free T4 2.53 uIU/mL (0.32-4.0)
[2022-12-16 21:26] LABS: COVID-19 Test Negative (Negative); IDNOW Serial# 08D9AD1C
[2022-12-16 22:19] LABS: Acetaminophen LAB < 17 mcg/mL (<30)
[2022-12-17] VITALS (8 sets, daily range): BP systolic 119–170; BP diastolic 80–96; PULSE 71–100; RESP 16–20; TEMP 35.9–36.8; O2SAT 96–98
--- NOTE | 2022-12-17 05:30 | PC.NURSE ---
Patient slept through the night, no distress observed/reported, thought content paranoid due to non compliant with her medication, med rec completed/pending provider's approval, disposition per [facility] is section-12 inpatient bed search, VSS, labs completed/resulted, will continue to monitor.
--- NOTE | 2022-12-17 08:11 | PHA.MEDREC ---
Pharmacy Consult ? Medication Reconciliation Pharmacy has REVIEWED the medication reconciliatio done by CARLOZ
[2022-12-17] MEDS: Omeprazole 40 MG CAPSULE.DR PO (10:12)
[2022-12-17] MEDS: Levothyroxine Sodium 75 MCG TABLET PO (10:13)
[2022-12-17] MEDS: Cholecalciferol (Vitamin D3) 25 MCG TABLET 50 MCG PO (10:13)
[2022-12-17] MEDS: Lithium Carbonate ER 300 MG TABLET.ER PO ×2 (10:13→20:36)
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
--- NOTE | 2022-12-17 12:48 | PC.NURSE ---
pt met with Vic cole
[2022-12-17] MEDS: Haloperidol Lactate 5 MG/ML VIAL IM (14:10)
[2022-12-17] MEDS: LORazepam 2 MG/ML VIAL IM (14:10)
[2022-12-17] MEDS: diphenhydrAMINE HCL 50 MG/ML VIAL 25 MG IM (14:10)
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
--- NOTE | 2022-12-17 14:40 | PC.NURSE ---
RA restraint removed, ROM checked, pt reports that they are feeling calmer. will assess for continued removal of restraints
--- NOTE | 2022-12-17 14:55 | PC.NURSE ---
all restrains removed, pt reports that they will not be aggressive, pt moved to a room with a TV for comfort, OJ given. will ctm.
[2022-12-17] MEDS: Simethicone 80 MG TAB.CHEW 160 MG PO (17:04)
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
--- NOTE | 2022-12-17 18:27 | MHC.EDTECH ---
Patient still unavailable to complete EKG. Continues to ask to leave while acting in an eratic manner.
[2022-12-17] MEDS: QUEtiapine Fumarate 50 MG TABLET PO (20:35)
[2022-12-17] MEDS: risperiDONE 1 MG TABLET PO (21:25)
[2022-12-18] MEDS: Levothyroxine Sodium 75 MCG TABLET PO (06:21)
[2022-12-18] MEDS: Cholecalciferol (Vitamin D3) 25 MCG TABLET 50 MCG PO (08:23)
[2022-12-18] MEDS: Lithium Carbonate ER 300 MG TABLET.ER PO (08:23)
[2022-12-18 08:35] VITALS: BP 114/78; PULSE 94; RESP 16; TEMP 36.4; O2SAT 99
[2022-12-18 09:18] LABS: Estimated Average Glucose 77 mg/dL; Hemoglobin A1c % 4.3 % (<6.0)
[2022-12-18 10:00] LABS: Cholesterol 112 mg/dL (<200); HDL Cholesterol 40 mg/dL (>40); LDL Cholesterol Calculated 60 mg/dL (<100); Magnesium 2.2 mg/dL (1.6-2.6); Triglycerides 64 mg/dL (<150)
[2022-12-18 10:17] LABS: Free T4 (Free Thyroxine) 1.12 ng/dL (0.71-1.85); Thyroid Stimulating Hormone 2.63 uIU/mL (0.32-4.0)
[2022-12-18 10:59] LABS: Folate 15.2 ng/mL (> or = 4.0); Vitamin B12 1115 pg/mL (200-900)
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
--- NOTE | 2022-12-18 18:08 | PC.NURSE ---
Patient appproached this senior mortgage underwriter and asked if a text could be sent to Brenda Lu to stop the Risperdal, pt believes is causing water retention,,, patient made awre of change. and change to Abilify. Text was done and provider aware; medication will be changed
[2022-12-18 20:55] VITALS: BP 132/82; PULSE 106; TEMP 35.7; O2SAT 98
[2022-12-18] MEDS: Lithium Carbonate ER 450 MG TABLET.ER PO (20:58)
[2022-12-18] MEDS: QUEtiapine Fumarate 50 MG TABLET PO ×2 (20:58→23:06)
[2022-12-18] MEDS: risperiDONE 1 MG TABLET PO ×2 (20:59→23:06)
[2022-12-19] MEDS: traZODone HCL 50 MG TABLET PO ×2 (00:39→21:57)
[2022-12-19] MEDS: risperiDONE 1 MG TABLET PO (02:24)
[2022-12-19] MEDS: Levothyroxine Sodium 75 MCG TABLET PO (06:26)
[2022-12-19] MEDS: Lithium Carbonate ER 450 MG TABLET.ER PO ×2 (08:50→21:58)
[2022-12-19] MEDS: Cholecalciferol (Vitamin D3) 25 MCG TABLET 50 MCG PO (08:50)
[2022-12-19 08:51] VITALS: BP 112/55; PULSE 119; RESP 16; TEMP 36.4; O2SAT 98
--- NOTE | 2022-12-19 09:06 | HO.PSYCHPN ---
Subjective Subjective Date of Service: 12/19/22 Reason For Visit: PTSD,Bipolar Disorder Interim History: met with patient; discussed with team; reviewed progress notes/chart She says she has been very sleepy and although her mind is still racing, it is much less than prior to admission and that she is overall feeling better due to rest. Senior Software Manager asked why she was here and she explained that she was out walking naked, with her grandchild, talking about Luis; then she shrugged her shoulders. Patient has been calm and in behavioral and impulse control. Patient reports trouble with racing mind at bedtime and though medications still becoming therapeutic would like to try clonidine to see if it helps. Mental Status Exam Mental Status Exam Narrative: Pt is alert and oriented; behavior is cooperative, friendly and calm; patient is not in distress; dressed in casual attire with unkempt hair but adequate hygiene; mood is described as better and affect congruent; eye contact appropriate; Speech is normal rate, volume and prosody and not pressured; no psychomotor agitation/retardation present; thought process is organized and goal directed; Thought content is on tx; otherwise pertinent to relevant topics; patient has not expressed any delusional content, paranoid ideations or grandiosity; denies any SI/HI. There is no evidence of perceptual disturbance. Patients insight and judgment impaired but improving Diagnostics Vital Signs (24Hr): Vital Signs - 24 hr 12/18/22 20:55 12/19/22 08:51 Temperature 96.2 F L 97.6 F Pulse Rate 106 H 119 H Respiratory Rate 16 Blood Pressure 132/82 112/55 L Pulse Oximetry 98 98 Oxygen Delivery Method Room Air Room Air BMI result Body Mass Index 41.2 Labs 12/16/22 19:53 12/16/22 19:53 Labs: Laboratory Results - last 48 hr 12/18/22 12/18/22 12/18/22 08:17 08:17 08:17 Estimat Average Glucose 77 Hemoglobin A1c % 4.3 Magnesium 2.2 Triglycerides 64 Cholesterol 112 LDL Cholesterol, Calc 60 HDL Cholesterol 40 L Vitamin B12 1115 H Folate 15.2 TSH 2.63 Free T4 1.12 Medications Medications Current Medications Acetaminophen (Acetaminophen 325 Mg Tablet) 650 mg PO Q6H PRN PRN Reason: Headache/Pain Mild Scale (1-3) Al Hydroxide/Mg Hydroxide (Magnesium Hydrox/Alum Hydrox 30 Ml Oral.Susp) 30 ml PO Q6H PRN PRN Reason: Heartburn/Nausea Albuterol Sulfate (Albuterol Sulfate 90 Mcg 8 Gm Inhaler) 1 puff INHALE RQ4H PRN PRN Reason: Shortness Of Breath Or Wheezing Benztropine Mesylate (Benztropine Mesylate 0.5 Mg Tablet) 0.5 mg PO BEDTIME PRN PRN Reason: Parkinsonism Hydroxyzine HCl (Hydroxyzine Hcl 25 Mg Tablet) 25 mg PO Q6H PRN PRN Reason: Anxiety Levothyroxine Sodium (Levothyroxine Sodium 75 Mcg Tablet) 75 mcg PO DAILY@0600 [facility] Last Admin: 12/19/22 06:26 Dose: 75 mcg [place] Carbonate ([place] Carbonate Er 450 Mg Tablet.Er) 450 mg PO BID [facility] Last Admin: 12/19/22 08:50 Dose: 450 mg Loratadine (Loratadine 10 Mg Tablet) 10 mg PO DAILY PRN PRN Reason: allergies Magnesium Hydroxide (Milk Of Magnesia 30 Ml Oral.Susp) 30 ml PO DAILY PRN PRN Reason: Constipation Non-Formulary Medication (Eletriptan) 40 mg PO DAILY PRN PRN Reason: Migraine Headache Non-Formulary Medication (Erenumab-Aooe [Aimovig Autoinjector]) 70 mg SUBCUT QMONTH [facility] Quetiapine Fumarate (Quetiapine Fumarate 50 Mg Tablet) 50 mg PO BEDTIME [facility] Last Admin: 12/18/22 20:58 Dose: 50 mg Quetiapine Fumarate (Quetiapine Fumarate 50 Mg Tablet) 50 mg PO TID PRN PRN Reason: martine Last Admin: 12/18/22 23:06 Dose: 50 mg Risperidone (Risperidone 1 Mg Tablet) 1 mg PO BEDTIME MRX1 PRN PRN Reason: Anxiety Last Admin: 12/19/22 02:24 Dose: 1 mg Trazodone HCl (Trazodone Hcl 50 Mg Tablet) 50 mg PO BEDTIME MRX1 PRN PRN Reason: Insomnia Last Admin: 12/19/22 00:39 Dose: 50 mg Vitamin D (Cholecalciferol (Vitamin D3) 25 Mcg Tablet) 50 mcg PO DAILY [facility] Last Admin: 12/19/22 08:50 Dose: 50 mcg Allergies Allergies Allergy/AdvReac Type Severity Reaction Status Date / Time latex [LATEX] Allergy Mild HIVES Verified 09/28/22 13:58 Assessment & Plan Assessment & Plan (1) PTSD (post-traumatic stress disorder): Status: Acute Code(s): F43.10 - Post-traumatic stress disorder, unspecified (2) Bipolar 1 disorder: Status: Acute Code(s): F31.9 - Bipolar disorder, unspecified (3) Acute psychosis: Status: Acute Code(s): F23 - Brief psychotic disorder Plan 42 yo female, history of PTSD, Bipolar Disorder, Psychosis, currently with symptoms of martine. Section 12B Hospital course: 12/19 patient seems to be improving and has demonstrated behavioral and impulse control on the unit, with no observable will manic symptoms. Sleeping. Reports continued racing mind but that it is lessening. Would like to try clonidine to see if it helps at bedtime. Plan: Add clonidine 0.1 mg q.h.s. to see if it helps with racing mind/insomnia Increase [place] to 450 mg bid Add Seroquel 50 mg tid prn sx of martine Collateral contact Aftercare planning. Patient educated on: diagnosis and medication risk/benefits Informed Consent: understands and further education needed Reason for continued inpatient stay Substantial Risk for: rapid decompensation Time Spent With Patient Time: Total time managing care of this patient today ____ minutes.
[2022-12-19 16:00] VITALS: BP 130/69; PULSE 109; TEMP 35.6
[2022-12-19] MEDS: QUEtiapine Fumarate 50 MG TABLET PO ×2 (16:05→21:55)
[2022-12-19] MEDS: hydrOXYzine HCL 25 MG TABLET PO (16:05)
[2022-12-19] MEDS: cloNIDine HCL 0.1 MG TABLET PO (21:58)
[2022-12-20] MEDS: risperiDONE 1 MG TABLET PO (01:01)
[2022-12-20] MEDS: Levothyroxine Sodium 75 MCG TABLET PO (06:32)
[2022-12-20] MEDS: Lithium Carbonate ER 450 MG TABLET.ER PO ×2 (08:27→20:53)
[2022-12-20] MEDS: Cholecalciferol (Vitamin D3) 25 MCG TABLET 50 MCG PO (08:27)
[2022-12-20 08:30] VITALS: BP 117/77; PULSE 79; RESP 18; TEMP 36.4; O2SAT 99
--- NOTE | 2022-12-20 09:55 | P.PNPSI_ITS ---
Subjective Subjective Date of Service: 12/20/22 Reason For Visit: PTSD,Bipolar Disorder Interim History: Met with Patient; discussed with team Patient remains much improved; calm, appropriate behaviors on the unit. She has insight and talks about her bipolar disorder recent manic episode, saying she would never do such a thing if she was her regular self. She does not know which triggered it since she says she was on her medications. Patient says that still having trouble sleeping and that her mind is a little bit racing. Discussed medication and patient agrees to increase Seroquel to 100 mg q.h.s. to help insomnia. community supports whom she wants involved are: Mom: Thao Holbrook Son: Jose G Mcbride Partner: Maximus Brunner Mental Status Exam Mental Status Exam Narrative: Pt is alert and oriented; behavior is cooperative, friendly and calm; patient is not in distress; dressed in casual attire with unkempt hair but adequate hygiene; mood is described as better and affect congruent; eye contact appropriate; Speech is normal rate, volume and prosody and not pressured; no psychomotor agitation/retardation present; thought process is organized and goal directed; Thought content is on tx; otherwise pertinent to relevant topics; patient has not expressed any delusional content, paranoid ideations or grandiosity; denies any SI/HI. There is no evidence of perceptual disturbance. Patients insight and judgment fair Diagnostics Vital Signs (24Hr): Vital Signs - 24 hr 12/19/22 16:00 12/20/22 08:30 Temperature 96.1 F L 97.6 F Pulse Rate 109 H 79 Respiratory Rate 18 Blood Pressure 130/69 117/77 Pulse Oximetry 99 Oxygen Delivery Method Room Air BMI result Body Mass Index 41.2 Labs 12/16/22 19:53 12/16/22 19:53 Labs: Laboratory Results - last 48 hr 12/18/22 12/18/22 08:17 08:17 Magnesium 2.2 Triglycerides 64 Cholesterol 112 LDL Cholesterol, Calc 60 HDL Cholesterol 40 L Vitamin B12 1115 H Folate 15.2 TSH 2.63 Free T4 1.12 Medications Medications Current Medications Acetaminophen (Acetaminophen 325 Mg Tablet) 650 mg PO Q6H PRN PRN Reason: Headache/Pain Mild Scale (1-3) Al Hydroxide/Mg Hydroxide (Magnesium Hydrox/Alum Hydrox 30 Ml Oral.Susp) 30 ml PO Q6H PRN PRN Reason: Heartburn/Nausea Albuterol Sulfate (Albuterol Sulfate 90 Mcg 8 Gm Inhaler) [address] PRN Reason: Shortness Of Breath Or Wheezing Benztropine Mesylate (Benztropine Mesylate 0.5 Mg Tablet) 0.5 mg PO BEDTIME PRN PRN Reason: Parkinsonism Clonidine HCl (Clonidine Hcl 0.1 Mg Tablet) 0.1 mg PO BEDTIME SOFIE; Protocol Last Admin: 12/19/22 21:58 Dose: 0.1 mg Clonidine HCl (Clonidine Hcl 0.1 Mg Tablet) 0.1 mg PO BID PRN; Protocol PRN Reason: Anxiety Hydroxyzine HCl (Hydroxyzine Hcl 25 Mg Tablet) 25 mg PO Q6H PRN PRN Reason: Anxiety Last Admin: 12/19/22 16:05 Dose: 25 mg Levothyroxine Sodium (Levothyroxine Sodium 75 Mcg Tablet) 75 mcg PO DAILY@0600 [facility] Last Admin: 12/20/22 06:32 Dose: 75 mcg Secor Carbonate (Secor Carbonate Er 450 Mg Tablet.Er) 450 mg PO BID [facility] Last Admin: 12/20/22 08:27 Dose: 450 mg Loratadine (Loratadine 10 Mg Tablet) 10 mg PO DAILY PRN PRN Reason: allergies Magnesium Hydroxide (Milk Of Magnesia 30 Ml Oral.Susp) 30 ml PO DAILY PRN PRN Reason: Constipation Non-Formulary Medication (Eletriptan) 40 mg PO DAILY PRN PRN Reason: Migraine Headache Non-Formulary Medication (Erenumab-Aooe [Aimovig Autoinjector]) 70 mg SUBCUT QMONTH [facility] Quetiapine Fumarate (Quetiapine Fumarate 50 Mg Tablet) 50 mg PO BEDTIME [facility] Last Admin: 12/19/22 21:55 Dose: 50 mg Quetiapine Fumarate (Quetiapine Fumarate 50 Mg Tablet) 50 mg PO TID PRN PRN Reason: martine Last Admin: 12/19/22 16:05 Dose: 50 mg Risperidone (Risperidone 1 Mg Tablet) 1 mg PO BEDTIME MRX1 PRN PRN Reason: Anxiety Last Admin: 12/20/22 01:01 Dose: 1 mg Trazodone HCl (Trazodone Hcl 50 Mg Tablet) 50 mg PO BEDTIME MRX1 PRN PRN Reason: Insomnia Last Admin: 09/02/23 21:57 Dose: 50 mg Vitamin D (Cholecalciferol (Vitamin D3) 25 Mcg Tablet) 50 mcg PO DAILY SO[facility] Last Admin: 12/20/22 08:27 Dose: 50 mcg Allergies Allergies Allergy/AdvReac Type Severity Reaction Status Date / Time latex [LATEX] Allergy Mild HIVES Verified 09/28/22 13:58 Assessment & Plan Assessment & Plan (1) PTSD (post-traumatic stress disorder): Status: Acute Code(s): F43.10 - Post-traumatic stress disorder, unspecified (2) Bipolar 1 disorder: Status: Acute Code(s): F31.9 - Bipolar disorder, unspecified (3) Acute psychosis: Status: Acute Code(s): F23 - Brief psychotic disorder Plan 42 yo female, history of PTSD, Bipolar Disorder, Psychosis, currently with symptoms of martine. Section 12B Hospital course: 12/19 patient seems to be improving and has demonstrated behavioral and impulse control on the unit, with no observable will manic symptoms. Sleeping. Reports continued racing mind but that it is lessening. Would like to try clonidine to see if it helps at bedtime. 12/20 Patient remains much improved; calm, appropriate behaviors on the unit. She has insight and talks about her bipolar disorder recent manic episode, saying she would never do such a thing if she was her regular self. She does not know which triggered it since she says she was on her medications. Patient says that still having trouble sleeping and that her mind is a little bit racing. Discussed medication and patient agrees to increase Seroquel to 100 mg q.h.s. to help insomnia. Plan: 12b ? Increase Seroquel to 100mg qhs for continued struggles with insomnia dc'd risperdal; no longer taking dc'd trazodone; does not help Continue Secor to 450 mg bid Continue Seroquel 50 mg tid prn sx of agitation/insomnia Aftercare planning. Collateral contact Patient asks for the following community supports to be involved in her care Mom: Thao Holbrook Son: Jose G Mcbride Partner: Maximus Brunner Patient educated on: diagnosis and medication risk/benefits Informed Consent: understands Reason for continued inpatient stay Substantial Risk for: stable for discharge Time Spent With Patient Time: Total time managing care of this patient today ____ minutes.
[2022-12-20 19:27] VITALS: BP 140/67; PULSE 84; RESP 18; TEMP 36.4; O2SAT 98
[2022-12-20] MEDS: QUEtiapine Fumarate 100 MG TABLET PO (20:53)
[2022-12-21] MEDS: QUEtiapine Fumarate 50 MG TABLET PO ×2 (00:12→23:54)
[2022-12-21] MEDS: Levothyroxine Sodium 75 MCG TABLET PO (06:10)
[2022-12-21 07:28] LABS: Lithium 0.85 mmol/L (0.60-1.20)
[2022-12-21] MEDS: Cholecalciferol (Vitamin D3) 25 MCG TABLET 50 MCG PO (08:52)
[2022-12-21] MEDS: Lithium Carbonate ER 450 MG TABLET.ER PO ×2 (08:52→19:41)
[2022-12-21 08:54] VITALS: BP 118/80; PULSE 100; RESP 18; TEMP 36.2; O2SAT 98
--- NOTE | 2022-12-21 10:19 | HO.PSYCHPN ---
Subjective Subjective Date of Service: 12/21/22 Reason For Visit: PTSD,Bipolar Disorder Interim History: Met with Patient; discussed with team Patient reports she is feeling better however still did not sleep at all last night. She agrees to increase Seroquel to 200 mg q.h.s.. Patient also shows account underwriter her legs and says that she is getting bilateral leg swelling, which she is and that she normally takes Lasix 40 mg for a day or 2. Ceramic Painter discussed risks of Lasix while on lithium including injury to the kidney as well as dehydration and lithium toxicity. Patient says she is well aware of these risks and that is why she only takes it for 1 or 2 days at most but that it fully reduce his swelling. Both agreed to Lasix 40 mg 1 time dose today and see how it goes. Diagnostics Vital Signs (24Hr): Vital Signs - 24 hr 12/20/22 19:27 12/21/22 08:54 Temperature 97.5 F 97.1 F Pulse Rate 84 100 Respiratory Rate 18 18 Blood Pressure 140/67 H 118/80 Pulse Oximetry 98 98 Oxygen Delivery Method Room Air BMI result Body Mass Index 41.2 Labs 12/16/22 19:53 12/16/22 19:53 Labs: Laboratory Results - last 48 hr 12/21/22 07:06 [place] 0.85 Medications Medications Current Medications Acetaminophen (Acetaminophen 325 Mg Tablet) 650 mg PO Q6H PRN PRN Reason: Headache/Pain Mild Scale (1-3) Al Hydroxide/Mg Hydroxide (Magnesium Hydrox/Alum Hydrox 30 Ml Oral.Susp) 30 ml PO Q6H PRN PRN Reason: Heartburn/Nausea Albuterol Sulfate (Albuterol Sulfate 90 Mcg 8 Gm Inhaler) 1 puff INHALE RQ4H PRN PRN Reason: Shortness Of Breath Or Wheezing Benztropine Mesylate (Benztropine Mesylate 0.5 Mg Tablet) 0.5 mg PO BEDTIME PRN PRN Reason: Parkinsonism Clonidine HCl (Clonidine Hcl 0.1 Mg Tablet) 0.1 mg PO BID PRN; Protocol PRN Reason: Anxiety Hydroxyzine HCl (Hydroxyzine Hcl 25 Mg Tablet) 25 mg PO Q6H PRN PRN Reason: Anxiety Last Admin: 12/19/22 16:05 Dose: 25 mg Levothyroxine Sodium (Levothyroxine Sodium 75 Mcg Tablet) 75 mcg PO DAILY@0600 [facility] Last Admin: 12/21/22 06:10 Dose: 75 mcg [place] Carbonate ([place] Carbonate Er 450 Mg Tablet.Er) 450 mg PO BID [facility] Last Admin: 12/21/22 08:52 Dose: 450 mg Loratadine (Loratadine 10 Mg Tablet) 10 mg PO DAILY PRN PRN Reason: allergies Magnesium Hydroxide (Milk Of Magnesia 30 Ml Oral.Susp) 30 ml PO DAILY PRN PRN Reason: Constipation Non-Formulary Medication (Eletriptan) 40 mg PO DAILY PRN PRN Reason: Migraine Headache Non-Formulary Medication (Erenumab-Aooe [Aimovig Autoinjector]) 70 mg SUBCUT QMONTH [facility] Quetiapine Fumarate (Quetiapine Fumarate 100 Mg Tablet) 100 mg PO BEDTIME [facility] Last Admin: 12/20/22 20:53 Dose: 100 mg Quetiapine Fumarate (Quetiapine Fumarate 50 Mg Tablet) 50 mg PO TID PRN PRN Reason: agitation or insomnia Last Admin: 12/21/22 00:12 Dose: 50 mg Vitamin D (Cholecalciferol (Vitamin D3) 25 Mcg Tablet) 50 mcg PO DAILY [facility] Last Admin: 12/21/22 08:52 Dose: 50 mcg Allergies Allergies Allergy/AdvReac Type Severity Reaction Status Date / Time latex [LATEX] Allergy Mild HIVES Verified 09/28/22 13:58 Assessment & Plan Assessment & Plan (1) PTSD (post-traumatic stress disorder): Status: Acute Code(s): F43.10 - Post-traumatic stress disorder, unspecified (2) Bipolar 1 disorder: Status: Acute Code(s): F31.9 - Bipolar disorder, unspecified (3) Acute psychosis: Status: Acute Code(s): F23 - Brief psychotic disorder Plan 42 yo female, history of PTSD, Bipolar Disorder, Psychosis, currently with symptoms of martine. Section 12B Hospital course: 12/19 patient seems to be improving and has demonstrated behavioral and impulse control on the unit, with no observable will manic symptoms. Sleeping. Reports continued racing mind but that it is lessening. Would like to try clonidine to see if it helps at bedtime. 12/20 Patient remains much improved; calm, appropriate behaviors on the unit. She has insight and talks about her bipolar disorder recent manic episode, saying she would never do such a thing if she was her regular self. She does not know which triggered it since she says she was on her medications. Patient says that still having trouble sleeping and that her mind is a little bit racing. Discussed medication and patient agrees to increase Seroquel to 100 mg q.h.s. to help insomnia. 12/21 Patient reports she is feeling better however still did not sleep at all last night. -She agrees to increase Seroquel to 200 mg q.h.s.. P- -bilateral leg swelling, which she is and that she normally takes Lasix 40 mg for a day or 2. Ceramic Painter discussed risks of Lasix while on lithium including injury to the kidney as well as dehydration and lithium toxicity. Patient says she is well aware of these risks and that is why she only takes it for 1 or 2 days at most but that it fully reduce his swelling. Both agreed to Lasix 40 mg 1 time dose today and see how it goes. Plan: 12b ? Lasix 40mg one time dose for bilateral lower limb edema; intermittent/chronic Increase Seroquel to 200mg qhs for continued struggles with insomnia dc'd risperdal; no longer taking dc'd trazodone; does not help Continue [place] to 450 mg bid Continue Seroquel 50 mg tid prn sx of agitation/insomnia Aftercare planning. Collateral contact Patient asks for the following community supports to be involved in her care Mom: Thao Holbrook Son: Jose G Rebollarriquez Partner: Maximus Brunner Patient educated on: diagnosis, medication risk/benefits and medical condition Informed Consent: understands Reason for continued inpatient stay Substantial Risk for: stable for discharge Time Spent With Patient Time: Total time managing care of this patient today ____ minutes.
[2022-12-21] MEDS: Furosemide 40 MG TABLET PO (13:44)
[2022-12-21 18:00] VITALS: BP 122/69; PULSE 94; RESP 16; TEMP 36.3; O2SAT 98
[2022-12-21] MEDS: QUEtiapine Fumarate 200 MG TABLET PO (19:41)
[2022-12-22] MEDS: Levothyroxine Sodium 75 MCG TABLET PO (05:21)
[2022-12-22 06:00] VITALS: BP 159/79; PULSE 83; RESP 20; TEMP 36.2; O2SAT 98
[2022-12-22] MEDS: Cholecalciferol (Vitamin D3) 25 MCG TABLET 50 MCG PO (08:59)
[2022-12-22] MEDS: Lithium Carbonate ER 450 MG TABLET.ER PO (08:59)
--- NOTE | 2022-12-22 16:34 | P.DS_ITS ---
DS: Providers Provider Date of Service: 12/22/22 Date of admission: 12/17/22 21:45 Date of discharge: 12/22/22 Primary care physician: Unknown Physician Admitting clinician: Nadege Nj Attending physician on admission: Lyle Weaver Attending physician on discharge: Lyle Weaver Discharging clinician: Nadege Nj DS: Diagnosis Discharge Diagnosis (1) PTSD (post-traumatic stress disorder): Status: Acute (2) Bipolar 1 disorder: Status: Acute (3) Acute psychosis: Status: Resolved DS: Medications Discharge Medications Home Medications: Home Medications Medication Instructions Recorded Confirmed albuterol sulfate 90 mcg/actuation 1 puff inhalation Q3-4H PRN 07/18/21 12/16/22 aerosol inhaler (Ventolin HFA) Shortness Of Breath Or Wheezing cetirizine 10 mg tablet 10 mg PO DAILY PRN allergies 12/16/22 12/16/22 cholecalciferol (vitamin D3) 50 50 mcg PO DAILY 12/16/22 12/16/22 mcg (2,000 unit) capsule eletriptan 40 mg tablet 40 mg PO DAILY PRN Migraine 12/16/22 12/16/22 Headache erenumab-aooe 70 mg/mL 70 mg subcut QMONTH 12/16/22 12/16/22 subcutaneous auto-injector (Aimovig Autoinjector) levothyroxine 75 mcg tablet 75 mcg PO DAILY 12/16/22 12/16/22 Previous Rx's Medication Instructions Recorded benztropine 0.5 mg tablet 0.5 mg PO BEDTIME PRN Parkinsonism 12/22/22 #30 tabs lithium carbonate 450 mg 450 mg PO BID #60 tabs 12/22/22 tablet,extended release quetiapine 200 mg tablet 200 mg PO BEDTIME #30 tabs 12/22/22 Mental Status Exam Mental Status Exam Patient Appearance: Appropriate Patient Orientation: Person, Place, Time and Situation Level of Consciousness: Alert Patient Behavior: Talkative and Good Eye Contact Mood Description: Appropriate Affect Description: Appropriate and Expansive Patient Cognition Impaired: No Ability to Follow Directions: Good Speech Pattern: Spontaneous Speech Memory Description: Episodic Impaired Hallucinations: None Delusions: Not Present Thought Content: positive for Circumstantial Judgement: Good Data Data Completed and Pending Completed studies during hospitalization [Text1]: 12/16/22 12/16/22 12/16/22 19:37 19:37 19:53 WBC 9.8 RBC 3.80 L Hgb 11.4 L Hct 35.0 L MCV 92.1 MCH 30.0 MCHC 32.6 RDW 14.6 Plt Count 409 H MPV 9.9 Immature Gran % (Auto) 0.3 Neut % (Auto) 72.0 Lymph % (Auto) 19.6 L [place] % (Auto) 7.7 Eos % (Auto) 0.2 Baso % (Auto) 0.2 Lymph # (Auto) 1.9 [place] # (Auto) 0.8 Eos # (Auto) 0.0 Baso # (Auto) 0.0 Abs Immat Gran (auto) 0.03 Absolute Neuts (auto) 7.0 Absolute Nucleated RBC 0.000 Nucleated RBC % (auto) 0.0 Sodium Potassium Chloride Carbon Dioxide Anion Gap BUN Creatinine Estim Creat Clear Calc Estimated GFR Random Glucose Estimat Average Glucose Hemoglobin A1c % Calcium Magnesium Total Bilirubin Direct Bilirubin AST ALT Alkaline Phosphatase Total Protein Albumin Triglycerides Cholesterol LDL Cholesterol, Calc HDL Cholesterol Vitamin B12 Folate TSH Free T4 Beta HCG, Quant Urine Color Dark Yellow Urine Appearance Clear Urine pH 5.5 Ur Specific [place] 1.020 Urine Protein Trace Urine Glucose (UA) Negative Urine Ketones Trace Urine Blood Negative Urine Nitrite Negative Ur Leukocyte Esterase Negative Urine RBC 0-2 Urine WBC 0-5 Ur Squamous Epith Cells 3-5 Urine Bacteria Trace Hyaline Casts 11-20 Salicylates Urine Opiates Screen Not Detected Urine Fentanyl Screen Not Detected Acetaminophen Ur Barbiturates Screen Not Detected Ur Phencyclidine Scrn Not Detected Ur Amphetamines Screen Not Detected U Benzodiazepines Scrn Not Detected [place] Urine Cocaine Screen Not Detected U Marijuana (THC) Screen Not Detected Ethyl Alcohol COVID-19 (NIKHIL) COVID-19 Clin Com 12/16/22 12/16/22 12/16/22 19:53 19:53 19:53 WBC RBC Hgb Hct MCV MCH MCHC RDW Plt Count MPV Immature Gran % (Auto) Neut % (Auto) Lymph % (Auto) [place] % (Auto) Eos % (Auto) Baso % (Auto) Lymph # (Auto) [place] # (Auto) Eos # (Auto) Baso # (Auto) Abs Immat Gran (auto) Absolute Neuts (auto) Absolute Nucleated RBC Nucleated RBC % (auto) Sodium 141 Potassium 4.4 Chloride 108 Carbon Dioxide 23 Anion Gap 14 BUN 8 L Creatinine 0.79 Estim Creat Clear Calc 117.4 Estimated GFR > 60 Random Glucose 86 Estimat Average Glucose Hemoglobin A1c % Calcium 8.4 Magnesium Total Bilirubin 1.0 Direct Bilirubin 0.5 AST 55 H ALT 42 H Alkaline Phosphatase 101 Total Protein 5.9 L Albumin 2.9 L Triglycerides Cholesterol LDL Cholesterol, Calc HDL Cholesterol Vitamin B12 Folate TSH 2.53 Free T4 Beta HCG, Quant < 2 Urine Color Urine Appearance Urine pH Ur Specific [place] Urine Protein Urine Glucose (UA) Urine Ketones Urine Blood Urine Nitrite Ur Leukocyte Esterase Urine RBC Urine WBC Ur Squamous Epith Cells Urine Bacteria Hyaline Casts Salicylates < 5.0 L Urine Opiates Screen Urine Fentanyl Screen Acetaminophen < 17 Ur Barbiturates Screen Ur Phencyclidine Scrn Ur Amphetamines Screen U Benzodiazepines Scrn [place] < 0.10 L Urine Cocaine Screen U Marijuana (THC) Screen Ethyl Alcohol < 10 COVID-19 (NIKHIL) COVID-19 [employer] Com 12/16/22 12/18/22 12/18/22 20:59 08:17 08:17 WBC RBC Hgb Hct MCV MCH MCHC RDW Plt Count MPV Immature Gran % (Auto) Neut % (Auto) Lymph % (Auto) [place] % (Auto) Eos % (Auto) Baso % (Auto) Lymph # (Auto) [place] # (Auto) Eos # (Auto) Baso # (Auto) Abs Immat Gran (auto) Absolute Neuts (auto) Absolute Nucleated RBC Nucleated RBC % (auto) Sodium Potassium Chloride Carbon Dioxide Anion Gap BUN Creatinine Estim Creat Clear Calc Estimated GFR Random Glucose Estimat Average Glucose 77 Hemoglobin A1c % 4.3 Calcium Magnesium 2.2 Total Bilirubin Direct Bilirubin AST ALT Alkaline Phosphatase Total Protein Albumin Triglycerides 64 Cholesterol 112 LDL Cholesterol, Calc 60 HDL Cholesterol 40 L Vitamin B12 Folate TSH 2.63 Free T4 1.12 Beta HCG, Quant Urine Color Urine Appearance Urine pH Ur Specific [place] Urine Protein Urine Glucose (UA) Urine Ketones Urine Blood Urine Nitrite Ur Leukocyte Esterase Urine RBC Urine WBC Ur Squamous Epith Cells Urine Bacteria Hyaline Casts Salicylates Urine Opiates Screen Urine Fentanyl Screen Acetaminophen Ur Barbiturates Screen Ur Phencyclidine Scrn Ur Amphetamines Screen U Benzodiazepines Scrn [place] Urine Cocaine Screen U Marijuana (THC) Screen Ethyl Alcohol COVID-19 (NIKHIL) Negative COVID-19 Clin Com See Note 12/18/22 12/21/22 08:17 07:06 WBC RBC Hgb Hct MCV MCH MCHC RDW Plt Count MPV Immature Gran % (Auto) Neut % (Auto) Lymph % (Auto) [place] % (Auto) Eos % (Auto) Baso % (Auto) Lymph # (Auto) [place] # (Auto) Eos # (Auto) Baso # (Auto) Abs Immat Gran (auto) Absolute Neuts (auto) Absolute Nucleated RBC Nucleated RBC % (auto) Sodium Potassium Chloride Carbon Dioxide Anion Gap BUN Creatinine Estim Creat Clear Calc Estimated GFR Random Glucose Estimat Average Glucose Hemoglobin A1c % Calcium Magnesium Total Bilirubin Direct Bilirubin AST ALT Alkaline Phosphatase Total Protein Albumin Triglycerides Cholesterol LDL Cholesterol, Calc HDL Cholesterol Vitamin B12 1115 H Folate 15.2 TSH Free T4 Beta HCG, Quant Urine Color Urine Appearance Urine pH Ur Specific [place] Urine Protein Urine Glucose (UA) Urine Ketones Urine Blood Urine Nitrite Ur Leukocyte Esterase Urine RBC Urine WBC Ur Squamous Epith Cells Urine Bacteria Hyaline Casts Salicylates Urine Opiates Screen Urine Fentanyl Screen Acetaminophen Ur Barbiturates Screen Ur Phencyclidine Scrn Ur Amphetamines Screen U Benzodiazepines Scrn [place] 0.85 Urine Cocaine Screen U Marijuana (THC) Screen Ethyl Alcohol COVID-19 (NIKHIL) COVID-19 Clin Com DS: Summary Hospital Course Hospital Course: Admission to adult psychiatry for exacerbation of bipolar disorder with psychosis. Pt was found walking in the community without clothing, with belief that God had wanted her to do this to demonstrate her devotion to her jehovah's witness ramiro. Pt reports that prior to admission she and her team were tapering [place] as it was no longer needed. Pt was well engaged, she agreed to re-initiate and titrate [place] and add prn Seroquel. She was appropriate in the milieu and was able to sign a three day notice and return to her out patient team and home with stable mood, absence of delusions and understanding of the need to remain on her regime. Status at Discharge Functional status at discharge: independent ambulation Overall status at discharge: patient is progressing back to baseline Time Spent with Patient Time attestation: Total time managing care of this patient today ____ minutes. Time spent: Greater than 30 minutes Discharge Plan Discharge Anticipated Discharge Date/Time: 12/22/22 15:00 Patient Disposition: Home, Self-Care Discharge Diagnosis: PTSD Bipolar Disorder Referrals: Psychiatrist: Deanna Raygoza ([facility]) [Other] - 12/30/22 1:20 pm (Telehealth- Dr. Raygoza will call your phone at the appointment time ) Therapy: Kalee Garcia ([facility]) [Other] - 01/01/23 10:00 am (Telehealth- Kalee will call your phone at the appointment time ) Ebonie Toledo [Resident] - 1 Week (OFFICE WILL REACH OUT TO PT FOR F/U APPOINTMENT) Discharge Medications: New quetiapine 200 mg Tablet 200 mg PO BEDTIME Qty: 30 0RF lithium carbonate 450 mg Tablet Extended Release 450 mg PO BID Qty: 60 0RF Continued albuterol sulfate [Ventolin HFA] 90 mcg/actuation HFA aerosol inhaler 1 puff inhalation Q3-4H PRN (Reason: Shortness Of Breath Or Wheezing) cetirizine 10 mg tablet 10 mg PO DAILY PRN (Reason: allergies) levothyroxine 75 mcg tablet 75 mcg PO DAILY eletriptan 40 mg tablet 40 mg PO DAILY PRN (Reason: Migraine Headache) cholecalciferol (vitamin D3) 50 mcg (2,000 unit) capsule 50 mcg PO DAILY Aimovig Autoinjector 70 mg/mL auto-injector 70 mg subcut QMONTH benztropine 0.5 mg tablet 0.5 mg PO BEDTIME PRN (Reason: Parkinsonism) Qty: 30 0RF Discontinued lithium carbonate 300 mg tablet extended release 300 mg PO BID quetiapine 50 mg tablet 50 mg PO BEDTIME risperidone 1 mg tablet 1 - 2 mg PO BEDTIME PRN (Reason: Anxiety) Discharge Orders: Discharge Order (Routine); Ordered 12/22/22 Ordered By: Nadege Nj Diet: Advance to usual diet Activity on Discharge: As tolerated Stand Alone Forms: Patient Portal Discharge page, Community Support Care Plan Goals: Mood and Behavioral Stabilization Health Concerns: Mood and Behavioral Stabilization Plan of Treatment: Attend follow up appointments Take medications as directed Assessment: Pt interviewed prior to discharge and found to be fully oriented and without any SI/HI. Pt has insight and demonstrates good judgment in terms of wanting to pursue treatment. Pt is not in imminent risk of harm to self or others and has a safety plan that includes presenting to the closest ER or calling 911 if feeling unsafe. Pt has been observed closely by nursing and unit staff throughout admission. Pt has not engaged in any behaviors that suggest dangerousness to self or others and has demonstrated appropriate behaviors and impulse control. Discharge Date/Time: 12/22/22 16:30
--- NOTE | 2022-12-22 16:51 | PC.NURSE ---
Pt. Alert and oriented X 4. Reports readiness for discharge, I feel much better. I'm so glad I came in. Discharge instructions and medications reviewed with pt., who verbalized understanding. Pt. left unit at 16:30 accompanied by 2 staff to assist with luggage.
== END 2022-12-22 16:30 | disposition home or self-care (01) | DRG 885 ==
LOC: HO.ED 20:17 → HO.PM5 12-17 22:08
PROVIDERS: Admitting Provider Psychiatry & Neurology Psychiatry; Emergency Provider Emergency Medicine; Visit Provider Clinical Nurse Specialist Psychiatric/Mental Health, Adult
DX: F29 Unspecified psychosis not due to a substance or known physiological condition (principal); F31.9 Bipolar disorder, unspecified; F43.10 Post-traumatic stress disorder, unspecified; Z20.822 Contact with and (suspected) exposure to COVID-19; Z87.891 Personal history of nicotine dependence; Z79.890 Hormone replacement therapy; Z79.899 Other long term (current) drug therapy
CPT/HCPCS: 36415; 80053; 80061; 80076; 80143; 80178; 80179; 80307; 81001; 82607; 82746; 83036; 83735; 84439; 84443; 84702; 85025; 87635; 99285; J1200; J2060

== ENCOUNTER → 2022-12-17 21:45 | Outpatient (BNV) | payer OTHER, SELFPAY | PROVIDERS: Admitting Provider Psychiatry & Neurology Psychiatry; Emergency Provider Emergency Medicine; Visit Provider Clinical Nurse Specialist Psychiatric/Mental Health, Adult | DX: F43.11 Post-traumatic stress disorder, acute (principal); F31.9 Bipolar disorder, unspecified; F23 Brief psychotic disorder | CPT/HCPCS: 90792; 99232; 99239 ==

== ENCOUNTER 2023-02-25 09:52 | Outpatient (REF) | payer OTHER, SELFPAY ==
[2023-02-25 11:08] LABS: Lithium 0.72 mmol/L (0.60-1.20)
== END 2023-02-25 09:53 | disposition home or self-care (01) ==
LOC: HO.LAB 09:52
PROVIDERS: PCP Internal Medicine; Visit Provider Psychiatry & Neurology Psychiatry
DX: Z79.899 Other long term (current) drug therapy (principal)
CPT/HCPCS: 36415; 80178

== ENCOUNTER 2023-03-16 14:14 | Emergency (ER) | payer OTHER, SELFPAY ==
--- NOTE | ~2023-03-16 | XR_ITS ---
EXAMINATION: XR CHEST CLINICAL INFORMATION: Shortness of breath. COMPARISON: 07/20/2019 TECHNIQUE: Frontal view of the chest was obtained. FINDINGS: No significant abnormality is noted involving the heart, lungs, mediastinum, bony thorax or soft tissues. XR/XR chest 1V IMPRESSION: Unremarkable examination.
[2023-03-16 14:40] VITALS: BP 127/85; BP 138/90; PULSE 89; PULSE 93; RESP 18; TEMP 35.7; O2SAT 100; O2SAT 97; BMI 39.4
--- NOTE | 2023-03-16 14:40 | ECG_ITS ---
Test Reason : leg swelling Blood Pressure : / mmHG Vent. Rate : 078 BPM Atrial Rate : 078 BPM P-R Int : 140 ms QRS Dur : 074 ms QT Int : 374 ms P-R-T Axes : 000 -20 045 degrees QTc Int : 426 ms Normal sinus rhythm Nonspecific T wave abnormality Low voltage QRS Abnormal ECG T wave amplitude has decreased in Anterolateral leads Referred By: Rolando Santiago Electronically Signed By:TASHA WILLARD MD
--- NOTE | 2023-03-16 14:40 | ED.GENADULT ---
HPI - General Adult General Chief complaint: General Medical Stated complaint: BLE SWELLING,NAUSEA,VOMITING,?FEVER PER EMS Time Seen by Provider: 03/16/23 21:22 Source: patient Mode of arrival: ambulatory Limitations: no limitations History of Present Illness HPI narrative: Patient history of hypothyroidism fibromyalgia PTSD on levothyroxine TSH check was 1 month ago no change in the dosage comes here for increased leg swelling for last 4 days no shortness of breath no leg pain no chest pain swelling is there all the time also patient does have nausea vomiting for last 4 days getting better no abdominal pain. No history of similar swelling in the past Related Data Home Medications Medication Instructions Recorded Confirmed albuterol sulfate 90 mcg/actuation 1 puff inhalation Q3-4H PRN 07/18/21 12/16/22 aerosol inhaler (Ventolin HFA) Shortness Of Breath Or Wheezing cetirizine 10 mg tablet 10 mg PO DAILY PRN allergies 12/16/22 12/16/22 cholecalciferol (vitamin D3) 50 50 mcg PO DAILY 12/16/22 12/16/22 mcg (2,000 unit) capsule eletriptan 40 mg tablet 40 mg PO DAILY PRN Migraine 12/16/22 12/16/22 Headache erenumab-aooe 70 mg/mL 70 mg subcut QMONTH 12/16/22 12/16/22 subcutaneous auto-injector (Aimovig Autoinjector) levothyroxine 75 mcg tablet 75 mcg PO DAILY 12/16/22 12/16/22 Previous Rx's Medication Instructions Recorded benztropine 0.5 mg tablet 0.5 mg PO BEDTIME PRN Parkinsonism 12/22/22 #30 tabs lithium carbonate 450 mg 450 mg PO BID #60 tabs 12/22/22 tablet,extended release quetiapine 200 mg tablet 200 mg PO BEDTIME #30 tabs 12/22/22 hydrochlorothiazide 25 mg tablet 25 mg PO QAM #20 tabs 03/16/23 Allergies Allergy/AdvReac Type Severity Reaction Status Date / Time latex [LATEX] Allergy Mild HIVES Verified 09/28/22 13:58 Review of Systems Review of Systems: Yes all other systems are reviewed and are negative PMFSH Past Medical History Medical History (Updated 03/17/23 @ 00:01 by Yann Posada) PTSD (post-traumatic stress disorder) HPV (human papilloma virus) infection Herpes Fibromyalgia Bipolar disorder Vertigo Dizziness Surgical History (Updated 03/16/23 @ 21:53 by Miguel Ibrahim MD) Gastric bypass status for obesity Hx of cholecystectomy History of appendectomy History of hysterectomy Social History Social History Household Members: None Housing: Apartment Do you presently have visiting nurse or other home services: No Alcohol intake: never Patient Tobacco Use Status: Former Tobacco user e-Cigarette/Vaping Use: Never Used Second Hand Smoke Exposure: No Advance Directives: No Advance Directives Information Provided: Yes service: No Sexual orientation: Straight/Heterosexual Physical Exam ED Vital Signs: Vital Signs - 24 hr 03/16/23 14:40 03/16/23 22:00 Temperature 96.2 F L Pulse Rate 89 92 Respiratory Rate 18 16 Blood Pressure 127/85 149/94 H Pulse Oximetry 97 100 Oxygen Delivery Method Room Air Room Air BMI result Body Mass Index 39.4 Appearance: Alert. Oriented X3. No acute distress. Eyes: pallor+ ENT: Pharynx normal. Oral Mucosa moist Neck: Normal inspection. Neck supple. CVS: Normal heart rate and rhythm. Pulses normal. Respiratory: No respiratory distress. Equal air entry bilateral, no wheezing/rales/rhonchi Abdomen: Soft and nontender. Bowel sounds are present, no mass palpable, no CVA tenderness Skin: Skin warm and dry. Normal skin color. Normal skin turgor. Extremities: 2+ lower extremity edema. No calf tenderness Neuro: Oriented X 3. No motor deficit. No sensory deficit.No cerebellar signs , cranial nerves II-XII intact Course Course Course Narrative: This is an RME: Additional HPI, ROS, PE not included below will be deferred to primary provider. 42 year old female presents w/ n, v, abd pain X4 days. also worsening lower extremity swelling and orthopnea. Noticed shes pale also. Plan- labs, ekg, ua Medical Decision Making Medical Decision Making MDM Narrative: Patient dependent leg edema with increased tiredness workup showed hypoalbuminemia 1.8 patient had a gastric bypass surgery status post revision in 09/08 and since then albumin level has been low was 3.0 in 10/09 now it is 1.8 likely the cause for likely edema patient is supposed to be on protein shakes which she is not taking will give diuretics and advised patient to start taking protein shakes as advised by bariatrics patient TSH level was 2.6 in 01/09 and there is no change in the medication dosage Differential Diagnosis Differential Diagnoses: The differential diagnosis associated with the presentation includes Dependent leg edema/hypothyroidism/CHF/hypoalbuminemia Lab Data MDM Lab Attestation statement: I reviewed the patient's lab results. 03/16/23 15:16 03/16/23 15:14 Labs: Lab Results 03/16/23 03/16/23 Range/Units 15:14 15:16 WBC 6.8 (4.8-10.8) X10*3/uL RBC 3.54 L (4.20-5.50) X10*6/uL Hgb 10.5 L (12.0-16.0) g/dl Hct 32.2 L (37.0-47.0) % MCV 91.0 (80.0-98.0) fL MCH 29.7 (27.0-33.0) pg MCHC 32.6 (31.0-35.0) g/dl RDW 16.4 H (11.0-16.0) % Plt Count 447 H (160-400) X10*3/uL MPV 10.8 (9.4-12.3) fL Immature Gran % (Auto) 0.1 (0.0-0.4) % Neut % (Auto) 65.3 (45-73) % Lymph % (Auto) 27.6 (20-40) % [place] % (Auto) 5.4 (2-11) % Eos % (Auto) 1.0 (0-4) % Baso % (Auto) 0.6 (0-2) % Lymph # (Auto) 1.9 (1.2-4.9) X10*3/uL [place] # (Auto) 0.4 (0.1-1.2) X10*3/uL Eos # (Auto) 0.1 (0.0-0.4) X10*3/uL Baso # (Auto) 0.0 (0.0-0.2) X10*3/uL Abs Immat Gran (auto) 0.01 (0.00-0.03) X10*3/uL Absolute Neuts (auto) 4.5 (2.0-8.3) x10*3/uL Absolute Nucleated RBC 0.000 (0.0-0.012) X10*3/uL Nucleated RBC % (auto) 0.0 (0.0-0.2) /100WBC PT 16.0 H (11.1-13.3) SEC INR 1.3 H (0.9-1.1) Sodium 137 (135-145) mmol/L Potassium 3.8 (3.3-5.1) mmol/L Chloride 110 H (96-108) mmol/L Carbon Dioxide 22 (22-29) mmol/L Anion Gap 9 L (12-20) BUN 8 L (9-16) mg/dL Creatinine 0.88 (0.5-1.4) mg/dL Estim Creat Clear Calc 102.8 Estimated GFR > 60 Random Glucose 104 (60-115) mg/dL Calcium 7.5 L D (8.4-10.2) mg/dL Magnesium 2.0 (1.6-2.6) mg/dL Total Bilirubin 1.4 H (0.0-1.0) mg/dL AST 31 (5-31) U/L ALT 29 (0-31) U/L Alkaline Phosphatase 125 H (39-117) U/L Troponin I High Sens < 2.7 (<3.5-17.0) ng/L B-Natriuretic Peptide 27 (<100) pg/mL Total Protein 4.5 L (6.5-8.0) g/dL Albumin 1.8 L (3.5-5.0) g/dL Lipase 4 L (8-78) U/L TSH 2.37 (0.32-4.0) uIU/mL Discharge Plan Discharge Clinical Impression: Edema due to hypoalbuminemia Patient Disposition: Home, Self-Care Instructions: Edema (ED) Additional Instructions: Your swelling of legs are because of low protein level Start taking protein shakes as you are not absorbing protein because of gastric bypass surgery Take water pill daily as Advised Prescriptions: New hydrochlorothiazide 25 mg tablet 25 mg PO QAM Qty: 20 0RF No Action albuterol sulfate [Ventolin HFA] 90 mcg/actuation HFA aerosol inhaler 1 puff inhalation Q3-4H PRN (Reason: Shortness Of Breath Or Wheezing) cetirizine 10 mg tablet 10 mg PO DAILY PRN (Reason: allergies) levothyroxine 75 mcg tablet 75 mcg PO DAILY eletriptan 40 mg tablet 40 mg PO DAILY PRN (Reason: Migraine Headache) cholecalciferol (vitamin D3) 50 mcg (2,000 unit) capsule 50 mcg PO DAILY Aimovig Autoinjector 70 mg/mL auto-injector 70 mg subcut QMONTH quetiapine 200 mg Tablet 200 mg PO BEDTIME Qty: 30 0RF lithium carbonate 450 mg Tablet Extended Release 450 mg PO BID Qty: 60 0RF benztropine 0.5 mg tablet 0.5 mg PO BEDTIME PRN (Reason: Parkinsonism) Qty: 30 0RF Interventions: ED Discharge Assessment Last Done: 03/16/23 22:12 Discharge Date/Time: 03/16/23 22:13
[2023-03-16 15:23] LABS: MANUAL DIFF FLAG NO
[2023-03-16 15:39] LABS: Alanine Aminotransferase 29 U/L (0-31); Albumin Level 1.8 g/dL (3.5-5.0); Alkaline Phosphatase 125 U/L (39-117); Anion Gap 9 (12-20); Aspartate Amino Transferase 31 U/L (5-31); Bilirubin Total 1.4 mg/dL (0.0-1.0); Blood Urea Nitrogen 8 mg/dL (9-16); Calcium 7.5 mg/dL (8.4-10.2); Carbon Dioxide 22 mmol/L (22-29); Chloride 110 mmol/L (96-108); Creatinine Clr Calc Pharmacy 102.8; Estimated Glomerular Filt Rate > 60; Glucose Random 104 mg/dL (60-115); Lipase 4 U/L (8-78); Potassium 3.8 mmol/L (3.3-5.1); Sodium 137 mmol/L (135-145); Total Protein 4.5 g/dL (6.5-8.0)
[2023-03-16 15:41] LABS: Basophils Percent Auto 0.6 % (0-2); Eosinophils Absolute Auto 0.1 X10*3/uL (0.0-0.4); Hematocrit 32.2 % (37.0-47.0); Hemoglobin 10.5 g/dl (12.0-16.0); Imm Gran Abs Auto 0.01 X10*3/uL (0.00-0.03); Imm Gran Pct Auto 0.1 % (0.0-0.4); Lymphocytes Absolute Auto 1.9 X10*3/uL (1.2-4.9); Lymphocytes Percent Auto 27.6 % (20-40); Mean Corpuscular HGB Conc 32.6 g/dl (31.0-35.0); Mean Corpuscular Hemoglobin 29.7 pg (27.0-33.0); Mean Platelet Volume 10.8 fL (9.4-12.3); Monocytes Absolute Auto 0.4 X10*3/uL (0.1-1.2); Monocytes Percent Auto 5.4 % (2-11); Neutrophils Absolute Auto 4.5 x10*3/uL (2.0-8.3); Neutrophils Percent Auto 65.3 % (45-73); Platelet Count 447 X10*3/uL (160-400); Red Blood Count 3.54 X10*6/uL (4.20-5.50); Red Cell Distribution Width 16.4 % (11.0-16.0); White Blood Count 6.8 X10*3/uL (4.8-10.8)
[2023-03-16 15:42] LABS: INTERNATIONAL NORM RATIO 1.3 (0.9-1.1)
[2023-03-16 15:47] LABS: B Type Natriuretic Peptide 27 pg/mL (<100)
[2023-03-16 15:52] LABS: Troponin-I High Sensitivity < 2.7 ng/L (<3.5-17.0)
[2023-03-16 22:00] VITALS: BP 149/94; PULSE 92; RESP 16; O2SAT 100
[2023-03-16 22:27] LABS: Thyroid Stimulating Hormone 2.37 uIU/mL (0.32-4.0)
== END 2023-03-16 22:13 | disposition home or self-care (01) ==
PROVIDERS: Physician Assistant; Emergency Provider Internal Medicine; PCP Internal Medicine
DX: R60.0 Localized edema (principal); E88.09 Other disorders of plasma-protein metabolism, not elsewhere classified; R06.01 Orthopnea; Z87.891 Personal history of nicotine dependence; Z79.899 Other long term (current) drug therapy
CPT/HCPCS: 36415; 71045; 80053; 83690; 83735; 83880; 84443; 84484; 85025; 85610; 93005; 99283; 99284

== ENCOUNTER 2023-03-22 11:53 | Emergency (ER) | payer OTHER, SELFPAY ==
[2023-03-22] VITALS (8 sets, daily range): BP systolic 98–144; BP diastolic 61–90; PULSE 73–107; RESP 14–20; TEMP 36–36.8; O2SAT 98–100; BMI 39.4
--- NOTE | ~2023-03-22 | US_ITS ---
EXAMINATION: US VENOUS ULTRASOUND WITH DOPPLER LOWER EXTREMITY, BILATERAL CLINICAL INFORMATION: Bilateral lower extremity edema COMPARISON: DVT study right lower extremity 11/12/2019 TECHNIQUE: Ultrasound of the deep veins is performed from the hip to the calf with compression sonography and color and pulse Doppler assessment. Spectral analysis with color-flow imaging is performed. FINDINGS: RIGHT: There is normal venous compression and respiratory variation and augmented flow. The visualized common femoral vein, superficial femoral vein, profunda femoral vein, popliteal vein, and the trifurcation region shows no evidence of deep venous thrombosis. There is no significant popliteal fossa cyst. LEFT: There is normal venous compression and respiratory variation and augmented flow. The visualized common femoral vein, superficial femoral vein, profunda femoral vein, popliteal vein, and the trifurcation region shows no evidence of deep venous thrombosis. There is a Donato's cyst present measuring 4.3 x 1.6 x 2.8 cm. If the patient's symptoms persist, followup ultrasound in 5 days 7 days might be of value to exclude proximal propagation from a non-visualized calf vein. US/US venous duplex LE BI IMPRESSION: 1. No DVT demonstrated in either lower extremity. 2. Left-sided Donato's cyst.
--- NOTE | ~2023-03-22 | XR_ITS ---
EXAMINATION: XR CHEST CLINICAL INFORMATION: Fatigue. Pedal edema. COMPARISON: Chest x-ray 03/16/2023 TECHNIQUE: 2 views of the chest were obtained. FINDINGS: Cardiac silhouette is normal in size. The lungs are well aerated. There is no lobar consolidation. No pleural effusion or pneumothorax. Mild degenerative changes of the spine. Surgical clips of the upper abdomen again noted. XR/XR chest 2V IMPRESSION: No acute pulmonary pathology.
--- NOTE | 2023-03-22 12:06 | ED.GENADULT ---
HPI - General Adult General Chief complaint: Weakness Stated complaint: GENERALIZED MUSCLE PAIN/WEAKNESS PER EMS Time Seen by Provider: 03/22/23 15:27 Source: patient, RN notes reviewed and old records reviewed Mode of arrival: ambulatory History of Present Illness HPI narrative: 42-year-old female with a past medical history of HPV, PTSD, bipolar, fibromyalgia, vertigo, dizziness, s/p gastric bypass revision on in July at [facility], presenting to the ED complaining of intermittent room spinning dizziness, generalized fatigue/myalgias, nausea and pedal edema x 1 week. Patient was seen and treated in our ED on 03/16 for similar symptoms, diagnosed with anemia and hypoalbuminemia, prescribed HCTZ for discharge however has not filled pharmacy. Denies fever, cough, chest pain/shortness of breath, abdominal pain, vomiting, diarrhea, melena/brbpr Related Data Home Medications Medication Instructions Recorded Confirmed albuterol sulfate 90 mcg/actuation 1 puff inhalation Q3-4H PRN 07/18/21 12/16/22 aerosol inhaler (Ventolin HFA) Shortness Of Breath Or Wheezing cetirizine 10 mg tablet 10 mg PO DAILY PRN allergies 12/16/22 12/16/22 cholecalciferol (vitamin D3) 50 50 mcg PO DAILY 12/16/22 12/16/22 mcg (2,000 unit) capsule eletriptan 40 mg tablet 40 mg PO DAILY PRN Migraine 12/16/22 12/16/22 Headache erenumab-aooe 70 mg/mL 70 mg subcut QMONTH 12/16/22 12/16/22 subcutaneous auto-injector (Aimovig Autoinjector) levothyroxine 75 mcg tablet 75 mcg PO DAILY 12/16/22 12/16/22 Previous Rx's Medication Instructions Recorded benztropine 0.5 mg tablet 0.5 mg PO BEDTIME PRN Parkinsonism 12/22/22 #30 tabs lithium carbonate 450 mg 450 mg PO BID #60 tabs 12/22/22 tablet,extended release quetiapine 200 mg tablet 200 mg PO BEDTIME #30 tabs 12/22/22 hydrochlorothiazide 25 mg tablet 25 mg PO QAM #20 tabs 03/16/23 Allergies Allergy/AdvReac Type Severity Reaction Status Date / Time latex [LATEX] Allergy Mild HIVES Verified 03/22/23 12:10 Review of Systems Review of Systems: Constitutional: No Fever, No Chills, + Fatigue, + Malaise ENT/Mouth: No Hearing loss, No Ear Pain, No Nasal Congestion, No sore throat, No Rhinorrhea, No Swallowing Difficulty Eyes: No Eye Pain, No Swelling, No Redness, No Vision Changes Cardiovascular: No Chest Pain, No SOB, No Palpitations, +LE edema Respiratory: No Cough, No Sputum, No Dyspnea Gastrointestinal: + Nausea, No Vomiting, No Diarrhea, No Constipation, No Abdominal pain Genitourinary: No Dysuria, No Urinary Frequency, No Hematuria, No Flank Pain Musculoskeletal: No joint pain, + Myalgias, No Joint Swelling Skin: No Skin Lesions, No rash Neuro: + generalized Weakness, No Numbness, No Paresthesias, No Loss of Consciousness, + Dizziness, No Headache Yes all other systems are reviewed and are negative Constitutional: Constitutional: Reports as per [facility] Past Medical History Attestation statement: The following information was validated with the patient. Source: old records reviewed Medical History PTSD (post-traumatic stress disorder) HPV (human papilloma virus) infection Herpes Fibromyalgia Bipolar disorder Vertigo Dizziness Surgical History Gastric bypass status for obesity Hx of cholecystectomy History of appendectomy History of hysterectomy Social History Social History Household Members: None Housing: Apartment Do you presently have visiting nurse or other home services: No Alcohol intake: never Patient Tobacco Use Status: Former Tobacco user Smoked in Last 30 Days: No e-Cigarette/Vaping Use: Never Used Second Hand Smoke Exposure: No Use of substances other than those prescribed or required for medical reasons: No Advance Directives: No Advance Directives Information Provided: No service: No Sexual orientation: Straight/Heterosexual Physical Exam ED Vital Signs: Vital Signs - 24 hr 03/22/23 12:06 03/22/23 16:00 03/22/23 17:44 Temperature 96.8 F 98.2 F Pulse Rate 104 H 73 83 Respiratory Rate 20 17 18 Blood Pressure 110/62 129/84 116/79 Pulse Oximetry 99 98 98 Oxygen Delivery Method Room Air Room Air 03/22/23 18:09 03/22/23 18:13 03/22/23 18:16 Temperature Pulse Rate 85 94 107 H Respiratory Rate Blood Pressure 121/73 124/76 98/61 Pulse Oximetry Oxygen Delivery Method BMI result Body Mass Index 39.4 Const General: cooperative, healthy appearing and no acute distress Orientation/consciousness: patient oriented x3 Limitations: no limitations HENMT Head: Yes normal to inspection and Yes atraumatic Ears: hearing grossly normal bilaterally General nose exam: Normal external nose present Face and sinus: Yes normal facial exam Eyes General: appearance normal, both eyes and all related structures EOM: EOMs intact bilaterally Neck Neck: Yes normal visual inspection and Yes no meningeal signs Resp Effort & Inspection: normal respiratory effort and no respiratory distress Auscultation: clear to auscultation bilaterally, no rales, no rhonchi and no wheezes Cardio Rate: regular rate Heart sounds: S1 normal heart sound present and S2 normal heart sound present GI Inspection: Yes normal to inspection Palpation (GI): Soft to palpation, nontender, no guarding and not rigid General: Yes no CVA tenderness Back/Spine/Pelvis Back: no CVA tenderness Skin Rashes: no rashes Wounds: no wounds Neuro General: patient oriented x3, tone normal, moves all extremities, no meningeal signs, no focal motor deficits and CN's II-XI intact bilaterally Cranial nerves: Yes CN's II-XII intact bilaterally Motor exam (neuro): 5/5 motor strength present throughout Extrem General: Yes edema (2+ bilateral LE pitting edema) Course Course Course Narrative: RME performed by Gisele Leone PA-C. Patient is a 42 year old assigned female at presenting to the emergency department feeling generally unwell. Labs and swabs ordered. Patient placed back in the waiting room pending room availability and results. -1545--COVID/FLU/RSV negative -albumin acute on chronically low > will give 1 bottle albumin while in the ED -1630--ED care transferred to [facility] pending remaining labs, UA, CXR, venous duplex US, Orthostatics and re-evaluation Reevaluation(s) Reevaluation #1: CBC is without leukocytosis, microcytic anemia which is consistent with prior levels. BMP within normal limits. Chest x-ray without acute cardio pulmonary process. Venous duplex ultrasound is negative for DVT. Orthostatic vital signs are positive, I suspect this is secondary to her volume depleted state. She has not been compliant with her protein shakes, I suspect that this is likely the etiology of her hypoalbuminemia, do not feel that fludrocortisone would be of benefit for her as this may result in worsening edema, furthermore given lack of compliance with protein shakes, concern if prescribing midodrine and no follow-up that this may result in hypertension. Discussed encouragement of appropriate fluid intake, protein shakes, compression stockings, elevation of the legs, changing positions slowly, and outpatient follow-up with primary care provider. Discussed worrisome signs and symptoms that would warrant re-evaluation in the emergency department. All questions answered. Stable for discharge. Ambulatory with a steady gait. Time: 19:29 Medications Administered Discontinued Medications Generic Name Dose Route Start Last Admin Trade Name Freq PRN Reason Stop Dose Admin Albumin Human 100 mls @ 100 mls/hr 03/22/23 15:41 03/22/23 17:38 Kedbumin 25 % IV 03/22/23 16:40 100 mls/hr ONCE ONE Administration Medical Decision Making Medical Decision Making [facility] Narrative: 42-year-old female with a past medical history of HPV, PTSD, bipolar, fibromyalgia, vertigo, dizziness, s/p gastric bypass revision on in July at [facility], presenting to the ED complaining of intermittent room spinning dizziness, generalized fatigue/myalgias, nausea and pedal edema x 1 week. On exam mildly tachycardic, NAD, nontoxic appearing, no focal deficits, lungs CTA, abdomen soft/nontender. Bilateral LE pitting edema noted. Concern for viral syndrome vs CHF vs hypoalbuminemia/fluid shift vs ?DVT vs metabolic abnormalities. Lower suspicion for infectious etiology or sepsis at this time. Unlikely ACS/pneumonia or PE. Unlikely CVA/TIA Plan: EKG, labs, UA, viral testing, venous duplex ultrasound, CXR, re-evaluate Please refer to course for remaining clinical decision making, interpretation of labs/imaging results, and discussions with consultants and/or family members. Differential Diagnosis Differential Diagnoses: The differential diagnosis associated with the presentation includes As above Admission/Observation Consideration of admission/observation: Escalation of care including admission/observation considered Lab Data [facility] Lab Attestation statement: I reviewed the patient's lab results. 03/22/23 17:16 03/22/23 12:57 Labs: Lab Results 03/22/23 03/22/23 03/22/23 Range/Units 12:57 17:16 18:50 WBC 9.9 (4.8-10.8) X10*3/uL RBC 3.73 L (4.20-5.50) X10*6/uL Hgb 11.1 L (12.0-16.0) g/dl Hct 36.1 L (37.0-47.0) % MCV 96.8 D (80.0-98.0) fL MCH 29.8 (27.0-33.0) pg MCHC 30.7 L (31.0-35.0) g/dl RDW 16.3 H (11.0-16.0) % Plt Count 415 H (160-400) X10*3/uL MPV 10.0 (9.4-12.3) fL Immature Gran % (Auto) 0.7 H (0.0-0.4) % Neut % (Auto) 61.9 (45-73) % Lymph % (Auto) 29.4 (20-40) % [place] % (Auto) 6.5 (2-11) % Eos % (Auto) 0.9 (0-4) % Baso % (Auto) 0.6 (0-2) % Lymph # (Auto) 2.9 (1.2-4.9) X10*3/uL [place] # (Auto) 0.7 (0.1-1.2) X10*3/uL Eos # (Auto) 0.1 (0.0-0.4) X10*3/uL Baso # (Auto) 0.1 (0.0-0.2) X10*3/uL Abs Immat Gran (auto) 0.07 H (0.00-0.03) X10*3/uL Absolute Neuts (auto) 6.1 (2.0-8.3) x10*3/uL Absolute Nucleated RBC 0.000 (0.0-0.012) X10*3/uL Nucleated RBC % (auto) 0.0 (0.0-0.2) /100WBC PT 15.5 H (11.1-13.3) SEC INR 1.3 H (0.9-1.1) APTT 34.3 (26.0-36.4) SEC Sodium 139 (135-145) mmol/L Potassium 4.4 (3.3-5.1) mmol/L Chloride 114 H (96-108) mmol/L Carbon Dioxide 19 L (22-29) mmol/L Anion Gap 10 L (12-20) BUN 7 L (9-16) mg/dL Creatinine 0.92 (0.5-1.4) mg/dL Estim Creat Clear Calc 98.3 Estimated GFR > 60 Random Glucose 126 H (60-115) mg/dL Calcium 7.8 L (8.4-10.2) mg/dL Magnesium 2.1 (1.6-2.6) mg/dL Total Bilirubin 0.9 (0.0-1.0) mg/dL AST 28 (5-31) U/L ALT 31 (0-31) U/L Alkaline Phosphatase 116 (39-117) U/L Troponin I High Sens < 2.7 (<3.5-17.0) ng/L B-Natriuretic Peptide 20 (<100) pg/mL Total Protein 4.6 L (6.5-8.0) g/dL Albumin 1.8 L (3.5-5.0) g/dL Lipase 4 L (8-78) U/L Beta HCG, Quant < 2 mIU/mL Influenza Type A (PCR) NEGATIVE (Negative) Influenza Type B (PCR) NEGATIVE (Negative) RSV RNA Qual (PCR) NEGATIVE (Negative) SARS-CoV-2 RNA (RT-PCR) NEGATIVE (Negative) Independent Interpretation I performed an independent interpretation of an: EKG, Plain X-Ray and Ultrasound Radiology Impression Discussion of test interpretation with radiology: I have reviewed the radiologist's reading. Radiologist Impression: XR/XR chest 2V IMPRESSION: No acute pulmonary pathology. US/US venous duplex LE BI IMPRESSION: 1. No DVT demonstrated in either lower extremity. 2. Left-sided Donato's cyst. External Record Review External record reviewed: Inpatient record, Office record, Outpatient record, Prior outpatient labs, Prior outpatient radiology, Primary care record and Outside ED record Tests considered The following testing was considered but not selected: As above Discharge Plan Discharge Clinical Impression: Dizziness, Generalized weakness, Pedal edema, Orthostatic hypotension Patient Disposition: Home, Self-Care Instructions: Dizziness (ED), Edema (ED) Additional Instructions: Please be certain that you are staying well hydrated, you should drink at least 6 8oz glasses of water daily Take your protein shakes as you are instructed by your bariatric surgeon Use compression stockings as discussed. Elevate your legs above the level of your chest when you are resting Change positions slowly. Contact your primary care provider to schedule follow-up visit within 3 days Return back to the emergency department with any new or worsening symptoms or concerns. Prescriptions: No Action albuterol sulfate [Ventolin HFA] 90 mcg/actuation HFA aerosol inhaler 1 puff inhalation Q3-4H PRN (Reason: Shortness Of Breath Or Wheezing) hydrochlorothiazide 25 mg tablet 25 mg PO QAM Qty: 20 0RF cetirizine 10 mg tablet 10 mg PO DAILY PRN (Reason: allergies) levothyroxine 75 mcg tablet 75 mcg PO DAILY eletriptan 40 mg tablet 40 mg PO DAILY PRN (Reason: Migraine Headache) cholecalciferol (vitamin D3) 50 mcg (2,000 unit) capsule 50 mcg PO DAILY Aimovig Autoinjector 70 mg/mL auto-injector 70 mg subcut QMONTH quetiapine 200 mg Tablet 200 mg PO BEDTIME Qty: 30 0RF lithium carbonate 450 mg Tablet Extended Release 450 mg PO BID Qty: 60 0RF benztropine 0.5 mg tablet 0.5 mg PO BEDTIME PRN (Reason: Parkinsonism) Qty: 30 0RF Referrals: Ebonie Toledo [Primary Care Provider] -
--- NOTE | 2023-03-22 12:07 | ECG_ITS ---
Test Reason : weakness Blood Pressure : / mmHG Vent. Rate : 094 BPM Atrial Rate : 094 BPM P-R Int : 132 ms QRS Dur : 068 ms QT Int : 354 ms P-R-T Axes : -06 -20 098 degrees QTc Int : 442 ms Normal sinus rhythm Cannot rule out Anterior infarct (cited on or before 22-MAR-2023) T wave abnormality, consider lateral ischemia Abnormal ECG When compared with ECG of 16-MAR-2023 15:07, No significant change was found Referred By: Gisele Leone Electronically Signed By:XIOMY STOUT
[2023-03-22 13:23] LABS: Alanine Aminotransferase 31 U/L (0-31); Albumin Level 1.8 g/dL (3.5-5.0); Alkaline Phosphatase 116 U/L (39-117); Anion Gap 10 (12-20); Aspartate Amino Transferase 28 U/L (5-31); Bilirubin Total 0.9 mg/dL (0.0-1.0); Blood Urea Nitrogen 7 mg/dL (9-16); Calcium 7.8 mg/dL (8.4-10.2); Carbon Dioxide 19 mmol/L (22-29); Chloride 114 mmol/L (96-108); Creatinine Clr Calc Pharmacy 98.3; Estimated Glomerular Filt Rate > 60; Glucose Random 126 mg/dL (60-115); Magnesium 2.1 mg/dL (1.6-2.6); Potassium 4.4 mmol/L (3.3-5.1); Sodium 139 mmol/L (135-145); Total Protein 4.6 g/dL (6.5-8.0)
[2023-03-22 13:29] LABS: HCG Quantitative < 2 mIU/mL; Troponin-I High Sensitivity < 2.7 ng/L (<3.5-17.0)
[2023-03-22 13:56] LABS: Influenza A PCR NEGATIVE (Negative); Influenza B PCR NEGATIVE (Negative); Resp Syncy Virus RNA Qual PCR NEGATIVE (Negative); SARS COV2 PCR INHOUSE NEGATIVE (Negative)
[2023-03-22 15:53] LABS: Lipase 4 U/L (8-78)
--- NOTE | 2023-03-22 16:09 | PC.NURSE ---
called lab to investigate pending status from waiting room. chemistry on phone states
--- NOTE | 2023-03-22 16:12 | PC.NURSE ---
this rn attempted to draw leftover bloodwork from waiting room- on phone w lab- stated to rn that had recieved blood in [facility] but unable to collect as QNS.
[2023-03-22 17:38] LABS: Basophils Absolute Auto 0.1 X10*3/uL (0.0-0.2); Basophils Percent Auto 0.6 % (0-2); Eosinophils Absolute Auto 0.1 X10*3/uL (0.0-0.4); Eosinophils Percent Auto 0.9 % (0-4); Hematocrit 36.1 % (37.0-47.0); Hemoglobin 11.1 g/dl (12.0-16.0); Imm Gran Abs Auto 0.07 X10*3/uL (0.00-0.03); Imm Gran Pct Auto 0.7 % (0.0-0.4); Lymphocytes Absolute Auto 2.9 X10*3/uL (1.2-4.9); Lymphocytes Percent Auto 29.4 % (20-40); Mean Corpuscular HGB Conc 30.7 g/dl (31.0-35.0); Mean Corpuscular Hemoglobin 29.8 pg (27.0-33.0); Mean Corpuscular Volume 96.8 fL (80.0-98.0); Monocytes Absolute Auto 0.7 X10*3/uL (0.1-1.2); Monocytes Percent Auto 6.5 % (2-11); Neutrophils Absolute Auto 6.1 x10*3/uL (2.0-8.3); Neutrophils Percent Auto 61.9 % (45-73); Platelet Count 415 X10*3/uL (160-400); Red Blood Count 3.73 X10*6/uL (4.20-5.50); Red Cell Distribution Width 16.3 % (11.0-16.0); White Blood Count 9.9 X10*3/uL (4.8-10.8)
[2023-03-22] MEDS: Albumin Human 25 % 100 ML IV (17:38)
[2023-03-22 18:01] LABS: B Type Natriuretic Peptide 20 pg/mL (<100)
[2023-03-22 18:09] LABS: MANUAL DIFF FLAG NO
--- NOTE | 2023-03-22 18:17 | PC.NURSE ---
see orthos- pa ca rabago aware. pt tolerated w/o syncope, reported dizziness got worse when stood. aox4. calm, coop. no focal deficits
[2023-03-22 19:07] LABS: INTERNATIONAL NORM RATIO 1.3 (0.9-1.1); Prothrombin Time 15.5 SEC (11.1-13.3)
[2023-03-22 19:10] LABS: Partial Thromboplastin Time 34.3 SEC (26.0-36.4)
== END 2023-03-22 19:56 | disposition home or self-care (01) ==
PROVIDERS: Physician Assistant; Physician Assistant Medical; Emergency Provider Emergency Medicine; PCP Internal Medicine
DX: M79.10 Myalgia, unspecified site (principal); R60.0 Localized edema; R06.02 Shortness of breath; I95.1 Orthostatic hypotension; R94.31 Abnormal electrocardiogram [ECG] [EKG]; Z98.84 Bariatric surgery status; Z20.822 Contact with and (suspected) exposure to COVID-19; Z20.828 Contact with and (suspected) exposure to other viral communicable diseases; Z79.899 Other long term (current) drug therapy
CPT/HCPCS: 0241U; 36415; 71046; 80053; 83690; 83735; 83880; 84484; 84702; 85025; 85610; 85730; 93005; 93970; 96374; 99284; 99285; P9047

== ENCOUNTER → 2023-03-22 12:07 | Outpatient (BNV) | payer OTHER, SELFPAY | PROVIDERS: Emergency Provider Emergency Medicine; PCP Internal Medicine; Visit Provider Internal Medicine | DX: R94.31 Abnormal electrocardiogram [ECG] [EKG] (principal) | CPT/HCPCS: 93010 ==

== ENCOUNTER 2023-03-31 20:32 | Emergency (ER) | payer OTHER, SELFPAY ==
--- NOTE | ~2023-03-31 | CT_ITS ---
EXAMINATION: CT ABDOMEN AND PELVIS WITHOUT CONTRAST CLINICAL INFORMATION: Status post gastric bypass. Upper Abdominal pain. COMPARISON: 09/28/2022 TECHNIQUE: Multidetector volumetric imaging was performed from the superior aspect of the liver through the pubic symphysis. Sagittal and coronal reformatted images were obtained on the technologist's workstation. This CT examination was performed using dose optimization techniques as appropriate, variously including the following: *Automated exposure control *Adjustment of mA and/or kV according to patient size (this includes techniques or standardized protocols for targeted exams where dose is matched to indication/reason for exam; i.e. extremities or head) *Use of iterative reconstruction technique DLP: 983 mGy-cm FINDINGS: LUNG BASES: The visualized lung bases are unremarkable. LIVER, GALLBLADDER, AND BILIARY TREE: The liver is normal in size. Diffuse hepatic steatosis. No focal liver lesions. No intra or extrahepatic biliary ductal dilatation is present. Cholecystectomy. PANCREAS: Fatty atrophy. No pancreatic mass or inflammation. SPLEEN: Unremarkable. ADRENAL GLANDS: Unremarkable. KIDNEYS AND URETERS: The kidneys are normal in size, shape, and attenuation. No hydronephrosis, hydroureter, or calculi seen. No perinephric stranding. BLADDER: Unremarkable. GASTROINTESTINAL TRACT: Chad-en-Y gastrojejunostomy. Small sliding-type hiatal hernia. No intestinal obstruction or inflammation. No evidence of appendicitis. ABDOMINAL WALL: No significant hernia is appreciated. LYMPH NODES: Normal. VASCULAR: Unremarkable. PELVIC VISCERA: Hysterectomy. No adnexal abnormalities. Physiologic follicles in the left ovary. OSSEOUS STRUCTURES: No acute or suspicious osseous abnormalities. Complete obliteration of the disc spaces at L4-L5 and L5-S1 associated with diffuse disc bulges and endplate osteophytes which leads to moderate to severe left and moderate right foraminal narrowing at L5-S1 at least moderate central canal stenosis at L4-L5. CT/CT abdomen pelvis wo IV con IMPRESSION: * No acute findings within the abdomen or pelvis to explain the patient's symptomatology. * Status post Chad-en-Y gastrojejunostomy. No intestinal obstruction or inflammation. * Hepatic steatosis. * Cholecystectomy. * Hysterectomy.
[2023-03-31 20:43] VITALS: BP 118/72; PULSE 94; RESP 16; TEMP 36.8; O2SAT 99
[2023-03-31 20:45] VITALS: BP 142/68; PULSE 105; O2SAT 99
[2023-03-31 20:49] VITALS: BP 118/72; PULSE 94; RESP 18; TEMP 36.8; O2SAT 99; BMI 40.6
--- NOTE | 2023-03-31 20:54 | PC.NURSE ---
Pt ca&ox4, no signs of distress. Pt reports 9/10 mid epigastric pain x 3 wks. Pt also reports also seen here 2x before for the same issue. Pt had a gastric bypass 15 yrs ago and a revision on 08/14/22. Pts vitals stable. Plan of care ongoing.
--- NOTE | 2023-03-31 21:05 | ED_ITS ---
HPI - Abdominal Pain General Chief Complaint: Abdominal Pain Stated Complaint: ABD PAIN FOR 3 WEEKS Time Seen by Provider: 03/31/23 21:05 Source: patient Mode of arrival: ambulatory Limitations: no limitations History of Present Illness HPI narrative: Patient is status post gastric bypass surgery about 15 years ago had a revision done on 02/13/2023 since then patient has been having pain in upper abdomen was seen by the surgeon 2 weeks ago for same, No imaging was done patient been still having the pain with nausea and started vomiting today patient been constipated last bowel movement was 1 week ago. No fever no chills Related Data Home Medications Medication Instructions Recorded Confirmed albuterol sulfate 90 mcg/actuation 1 puff inhalation Q3-4H PRN 07/18/21 12/16/22 aerosol inhaler (Ventolin HFA) Shortness Of Breath Or Wheezing cetirizine 10 mg tablet 10 mg PO DAILY PRN allergies 12/16/22 12/16/22 cholecalciferol (vitamin D3) 50 50 mcg PO DAILY 12/16/22 12/16/22 mcg (2,000 unit) capsule eletriptan 40 mg tablet 40 mg PO DAILY PRN Migraine 12/16/22 12/16/22 Headache erenumab-aooe 70 mg/mL 70 mg subcut QMONTH 12/16/22 12/16/22 subcutaneous auto-injector (Aimovig Autoinjector) levothyroxine 75 mcg tablet 75 mcg PO DAILY 12/16/22 12/16/22 Previous Rx's Medication Instructions Recorded benztropine 0.5 mg tablet 0.5 mg PO BEDTIME PRN Parkinsonism 12/22/22 #30 tabs lithium carbonate 450 mg 450 mg PO BID #60 tabs 12/22/22 tablet,extended release quetiapine 200 mg tablet 200 mg PO BEDTIME #30 tabs 12/22/22 hydrochlorothiazide 25 mg tablet 25 mg PO QAM #20 tabs 03/16/23 Allergies Allergy/AdvReac Type Severity Reaction Status Date / Time latex [LATEX] Allergy Mild HIVES Verified 03/22/23 12:10 Review of Systems Review of Systems Yes all other systems are reviewed and are negative PMFSH Past Medical History Medical History PTSD (post-traumatic stress disorder) HPV (human papilloma virus) infection Herpes Fibromyalgia Bipolar disorder Vertigo Dizziness Surgical History Gastric bypass status for obesity Hx of cholecystectomy History of appendectomy History of hysterectomy Social History Social History Household Members: None Housing: Apartment Do you presently have visiting nurse or other home services: No Alcohol intake: never Patient Tobacco Use Status: Former Tobacco user Smoked in Last 30 Days: No e-Cigarette/Vaping Use: Never Used Second Hand Smoke Exposure: No Use of substances other than those prescribed or required for medical reasons: No Advance Directives: No Advance Directives Information Provided: No service: No Sexual orientation: Straight/Heterosexual Physical Exam ED Vital Signs: Vital Signs - 24 hr 03/31/23 20:43 03/31/23 20:49 03/31/23 22:41 Temperature 98.3 F 98.3 F Pulse Rate 94 94 Respiratory Rate 16 18 16 Blood Pressure 118/72 118/72 Pulse Oximetry 99 99 Oxygen Delivery Method Room Air Room Air 04/01/23 00:23 Temperature 97.7 F Pulse Rate 96 Respiratory Rate Blood Pressure 118/61 Pulse Oximetry 100 Oxygen Delivery Method Room Air BMI result Body Mass Index 40.6 Appearance: Alert. Oriented X3. No acute distress. Eyes: No pallor or icterus ENT: Pharynx normal. Oral Mucosa moist Neck: Normal inspection. Neck supple. CVS: Normal heart rate and rhythm. Pulses normal. Respiratory: No respiratory distress. Equal air entry bilateral, no wheezing/rales/rhonchi Abdomen: Soft, tender epigastric and left upper abdomen no rebound tenderness or guarding Bowel sounds are present, no mass palpable, no CVA tenderness Skin: Skin warm and dry. Normal skin color. Normal skin turgor. Extremities: No lower extremity edema. No calf tenderness Neuro: Oriented X 3. Medical Decision Making Medical Decision Making MDM Narrative: Patient post gastric bypass revision with gastric abdominal pain, CT scan negative for any acute pathology level of slight leukocytosis and hyperkalemia and mild metabolic acidosis fluids were given patient feeling much better now taking p.o. fluids discharge patient home advised to follow with surgeon Differential Diagnosis Differential Diagnoses: The differential diagnosis associated with the presentation includes Small-bowel obstruction/gastritis/pancreatitis/postop complication/ UTI Admission/Observation Consideration of admission/observation: Escalation of care including admission/observation considered Lab Data MDM Lab Attestation statement: I reviewed the patient's lab results. 03/31/23 21:53 03/31/23 21:53 Labs: Lab Results 03/31/23 04/01/23 Range/Units 21:53 01:03 WBC 13.3 H (4.8-10.8) X10*3/uL RBC 3.54 L (4.20-5.50) X10*6/uL Hgb 10.6 L (12.0-16.0) g/dl Hct 32.6 L (37.0-47.0) % MCV 92.1 (80.0-98.0) fL MCH 29.9 (27.0-33.0) pg MCHC 32.5 (31.0-35.0) g/dl RDW 15.2 (11.0-16.0) % Plt Count 402 H (160-400) X10*3/uL MPV 10.4 (9.4-12.3) fL Immature Gran % (Auto) 0.3 (0.0-0.4) % Neut % (Auto) 58.1 (45-73) % Lymph % (Auto) 35.5 (20-40) % [place] % (Auto) 5.6 (2-11) % Eos % (Auto) 0.2 (0-4) % Baso % (Auto) 0.3 (0-2) % Lymph # (Auto) 4.7 (1.2-4.9) X10*3/uL [place] # (Auto) 0.7 (0.1-1.2) X10*3/uL Eos # (Auto) 0.0 (0.0-0.4) X10*3/uL Baso # (Auto) 0.0 (0.0-0.2) X10*3/uL Abs Immat Gran (auto) 0.04 H (0.00-0.03) X10*3/uL Absolute Neuts (auto) 7.7 (2.0-8.3) x10*3/uL Absolute Nucleated RBC 0.030 H (0.0-0.012) X10*3/uL Nucleated RBC % (auto) 0.2 (0.0-0.2) /100WBC Sodium 133 L (135-145) mmol/L Potassium 2.8 L D (3.3-5.1) mmol/L Chloride 105 (96-108) mmol/L Carbon Dioxide 19 L (22-29) mmol/L Anion Gap 12 (12-20) BUN 5 L (9-16) mg/dL Creatinine 1.00 (0.5-1.4) mg/dL Estim Creat Clear Calc 92.0 Estimated GFR > 60 Random Glucose 96 (60-115) mg/dL Calcium 7.8 L (8.4-10.2) mg/dL Magnesium 2.0 (1.6-2.6) mg/dL Total Bilirubin 1.6 H (0.0-1.0) mg/dL AST 45 H (5-31) U/L ALT 48 H (0-31) U/L Alkaline Phosphatase 143 H (39-117) U/L Total Protein 5.2 L (6.5-8.0) g/dL Albumin 2.4 L (3.5-5.0) g/dL Urine Color Yellow Urine Appearance Clear Urine pH 6.5 (5.0-9.0) Ur Specific [place] <= 1.005 (1.005-1.025) Urine Protein Negative (Neg-Trace) mg/dL Urine Glucose (UA) Negative (Negative) mg/dL Urine Ketones Negative (Negative) mg/dL Urine Blood Negative (Negative) Urine Nitrite Negative (Negative) Ur Leukocyte Esterase Negative (Negative) Urine RBC 0-2 (0-2) /HPF Urine WBC 0-5 (0-5) /HPF Ur Squamous Epith Cells 3-5 (0-2) /HPF Urine Bacteria None Seen (None Seen) Hyaline Casts 0-2 (0-2) /LPF Independent Interpretation I performed an independent interpretation of an: EKG Interpretation: Normal sinus rhythm heart rate 90 beats per minute poor progression of R-wave no acute ST-T change and no acute ischemia Medications Administered Discontinued Medications Generic Name Dose Route Start Last Admin Trade Name Freq PRN Reason Stop Dose Admin Sodium Chloride 1,000 mls @ 999 mls/hr 03/31/23 21:47 03/31/23 22:37 Ns IV 03/31/23 22:47 999 mls/hr .Q1H1M ONE Administration Potassium Chloride 10 meq in 100 mls @ 100 mls/hr 04/01/23 00:37 04/01/23 00:55 Potassium Chloride/H20 IV 04/01/23 01:36 100 mls/hr ONCE ONE Administration Metoclopramide HCl 10 mg 04/01/23 00:56 04/01/23 01:05 Metoclopramide Hcl 10 Mg/2 Ml Vial IVPUSH 04/01/23 00:57 10 mg ONCE ONE Administration Morphine Sulfate 4 mg 03/31/23 21:47 03/31/23 22:41 Morphine Sulfate 4 Mg/Ml Cartridge IVPUSH 03/31/23 21:48 4 mg ONCE ONE Administration Protocol Ondansetron HCl 4 mg 03/31/23 21:47 03/31/23 22:41 Ondansetron Hcl 4 Mg/2 Ml Vial IVPUSH 03/31/23 21:48 4 mg ONCE ONE Administration Potassium Bicarbonate 50 meq 04/01/23 00:37 04/01/23 00:55 Potassium Bicarbonate/Cit Ac 25 Meq Tablet.Eff PO 04/01/23 00:38 50 meq ONCE ONE Administration Discharge Plan Discharge Clinical Impression: Acute gastritis, Vomiting, Acute hypokalemia Patient Disposition: Home, Self-Care Instructions: Gastritis (ED), Hypokalemia (ED), Acute Nausea and Vomiting (ED) Additional Instructions: Drink plenty of fluids Medicine for nausea as prescribed Follow-up with your surgeon Have food containing extra potassium/banana Prescriptions: No Action albuterol sulfate [Ventolin HFA] 90 mcg/actuation HFA aerosol inhaler 1 puff inhalation Q3-4H PRN (Reason: Shortness Of Breath Or Wheezing) hydrochlorothiazide 25 mg tablet 25 mg PO QAM Qty: 20 0RF cetirizine 10 mg tablet 10 mg PO DAILY PRN (Reason: allergies) levothyroxine 75 mcg tablet 75 mcg PO DAILY eletriptan 40 mg tablet 40 mg PO DAILY PRN (Reason: Migraine Headache) cholecalciferol (vitamin D3) 50 mcg (2,000 unit) capsule 50 mcg PO DAILY Aimovig Autoinjector 70 mg/mL auto-injector 70 mg subcut QMONTH quetiapine 200 mg Tablet 200 mg PO BEDTIME Qty: 30 0RF lithium carbonate 450 mg Tablet Extended Release 450 mg PO BID Qty: 60 0RF benztropine 0.5 mg tablet 0.5 mg PO BEDTIME PRN (Reason: Parkinsonism) Qty: 30 0RF
[2023-03-31] MEDS: 0.9 % Sodium Chloride 1,000 ML 999 ML IV (22:37)
[2023-03-31 22:41] VITALS: RESP 16
[2023-03-31] MEDS: ondansetron HCL 4 MG/2 ML VIAL IVPUSH (22:41)
[2023-03-31] MEDS: Morphine Sulfate 4 MG/ML CARTRIDGE IVPUSH (22:41)
--- NOTE | 2023-03-31 22:45 | PC.NURSE ---
Provider placed IV. Labs drawn by shannon. Pt medicated per jun. Plan of care ongoing.
[2023-03-31 22:52] LABS: MANUAL DIFF FLAG NO
[2023-03-31 22:57] LABS: Basophils Percent Auto 0.3 % (0-2); Eosinophils Percent Auto 0.2 % (0-4); Hematocrit 32.6 % (37.0-47.0); Hemoglobin 10.6 g/dl (12.0-16.0); Imm Gran Abs Auto 0.04 X10*3/uL (0.00-0.03); Imm Gran Pct Auto 0.3 % (0.0-0.4); Lymphocytes Absolute Auto 4.7 X10*3/uL (1.2-4.9); Lymphocytes Percent Auto 35.5 % (20-40); Mean Corpuscular HGB Conc 32.5 g/dl (31.0-35.0); Mean Corpuscular Hemoglobin 29.9 pg (27.0-33.0); Mean Corpuscular Volume 92.1 fL (80.0-98.0); Mean Platelet Volume 10.4 fL (9.4-12.3); Monocytes Absolute Auto 0.7 X10*3/uL (0.1-1.2); Monocytes Percent Auto 5.6 % (2-11); NRBC Pct Auto 0.2 /100WBC (0.0-0.2); Neutrophils Absolute Auto 7.7 x10*3/uL (2.0-8.3); Neutrophils Percent Auto 58.1 % (45-73); Platelet Count 402 X10*3/uL (160-400); Red Blood Count 3.54 X10*6/uL (4.20-5.50); Red Cell Distribution Width 15.2 % (11.0-16.0); White Blood Count 13.3 X10*3/uL (4.8-10.8)
[2023-03-31 23:12] LABS: Alanine Aminotransferase 48 U/L (0-31); Albumin Level 2.4 g/dL (3.5-5.0); Alkaline Phosphatase 143 U/L (39-117); Anion Gap 12 (12-20); Aspartate Amino Transferase 45 U/L (5-31); Bilirubin Total 1.6 mg/dL (0.0-1.0); Blood Urea Nitrogen 5 mg/dL (9-16); Calcium 7.8 mg/dL (8.4-10.2); Carbon Dioxide 19 mmol/L (22-29); Chloride 105 mmol/L (96-108); Estimated Glomerular Filt Rate > 60; Glucose Random 96 mg/dL (60-115); Potassium 2.8 mmol/L (3.3-5.1); Sodium 133 mmol/L (135-145); Total Protein 5.2 g/dL (6.5-8.0)
[2023-04-01 00:23] VITALS: BP 118/61; PULSE 96; TEMP 36.5; O2SAT 100
--- NOTE | 2023-04-01 00:24 | MHC.EDTECH ---
PATIENT VOMITED, BED LINES CHANGED, PATIENT CLEANED UP AND REPOSITIONED.
[2023-04-01] MEDS: Potassium Chloride/H20 10 MEQ/100 ML PIGGYBACK 100 MEQ IV (00:55)
[2023-04-01] MEDS: Potassium Bicarbonate/Cit AC 25 MEQ TABLET.EFF 50 MEQ PO (00:55)
--- NOTE | 2023-04-01 00:57 | ECG_ITS ---
Test Reason : ABNORMAL LABS Blood Pressure : / mmHG Vent. Rate : 090 BPM Atrial Rate : 090 BPM P-R Int : 136 ms QRS Dur : 074 ms QT Int : 444 ms P-R-T Axes : -05 -20 -05 degrees QTc Int : 543 ms Normal sinus rhythm Cannot rule out Anterior infarct (cited on or before 22-MAR-2023) Abnormal ECG When compared with ECG of 22-MAR-2023 13:50, Nonspecific T wave abnormality, worse in Anterior leads QT has lengthened Referred By: Miguel Ibrahim Electronically Signed By:Alberto Quintanilla
[2023-04-01] MEDS: Metoclopramide HCl 10 MG/2 ML VIAL IVPUSH (01:05)
[2023-04-01 01:44] LABS: Appearance Urine Clear; Color Urine Yellow; Glucose Urine UA Negative (Negative); Leukocyte Esterase Urine Negative (Negative); Nitrite Urine Negative (Negative); PH 6.5 (5.0-9.0); Specific Gravity - Urine <= 1.005 (1.005-1.025); Urine Blood Negative (Negative); Urine Ketones Negative (Negative); Urine Protein Negative (Neg-Trace)
[2023-04-01 01:47] LABS: Bacteria Urine None Seen (None Seen); Hyaline Casts Urine 0-2 /LPF (0-2); RBC Urine 0-2 /HPF (0-2); WBC Urine 0-5 /HPF (0-5)
== END 2023-04-01 02:39 | disposition home or self-care (01) ==
PROVIDERS: Emergency Provider Internal Medicine
DX: K29.00 Acute gastritis without bleeding (principal); R11.2 Nausea with vomiting, unspecified; E87.6 Hypokalemia; Z87.891 Personal history of nicotine dependence; Z79.899 Other long term (current) drug therapy
CPT/HCPCS: 36415; 74176; 80053; 81001; 83735; 85025; 93005; 96361; 96365; 96375; 99285; J2270; J2405; J2765; J3480

== ENCOUNTER → 2023-04-01 00:57 | Outpatient (BNV) | payer OTHER, SELFPAY | PROVIDERS: Emergency Provider Internal Medicine; Visit Provider Internal Medicine Cardiovascular Disease | DX: R94.31 Abnormal electrocardiogram [ECG] [EKG] (principal) | CPT/HCPCS: 93010 ==